=== PATIENT | male | born 1935 | race Caucasian/White ===

== ENCOUNTER 2019-01-21 18:45 | Observation (INO) ==
--- OUTSIDE RECORDS SUMMARY | 2019-01-21 18:48 | External Medical Summary | Continuity of Care Document ---
:1935 Author Name Kalyn Don Address Unavailable Unavailable , Care Team Providers Name Role Phone Jemal Don Unavailable [email or web address] Unavailable Problems Active medical history not documented Allergies and Adverse Reactions Allergy history not documented Medications Medications not documented Procedures Procedures not documented Immunizations Immunizations not documented Plan of Treatment Planned Observations Planned Goals not documented Results No Known Results Results not documented
--- NOTE | 2019-01-21 20:57 | XRay Report ---
XR chest 1V portable CLINICAL HISTORY: 83 years-old Male presenting with Dyspnea. TECHNIQUE: Portable upright AP view of the chest was obtained. COMPARISON: 11/25/2008. FINDINGS: Left subclavian pacer with leads in the right atrium and right ventricular apex. Median sternotomy wi res. Atherosclerosis of the aortic arch. Cardiac silhouette mildly enlarged. Lungs are mildly hyperin flated. Mild pulmonary vascular prominence. Coarsened lung markings. Minimal right basilar opacity.. No large effusion or pneumothorax. Posttraumatic deformity of the right clavicle. IMPRESSION: 1. Mild cardiomegaly with mild volume overload. 2. Additionally, suspected underlying emphysema or other chronic lung disease. 3. Minimal right basilar opacity possibly atelectasis. Electronically signed by: Reid Marie M.D. 01/21/2019 8:56 PM
[2019-01-21 20:59] LABS: Basophils # (auto) 0.01 K/uL (0-0.2); Basophils % (auto) 0.2 %; Eosinophils # (auto) 0.33 K/uL (0-0.5); Eosinophils % (auto) 5.1 %; Hemoglobin 11.3 g/dL (14.0-18.0); Immature Granulocytes # (auto) 0.03 K/uL (0.00-0.02); Immature Granulocytes % (auto) 0.5 %; Lymphocytes # (auto) 1.84 K/uL (1.2-3.4); Lymphocytes % (auto) 28.6 %; Mean Corpuscular Hgb Conc 34.2 g/dL (32-36); Mean Corpuscular Volume 100.3 fL (80-100); Mean Platelet Volume 12.1 fL (7.4-10.4); Monocytes # (auto) 0.71 K/uL (0.11-0.59); Neutrophils # (auto) 3.52 K/uL (1.4-6.5); Neutrophils % (auto) 54.6 %; Platelet Count 273 K/uL (130-400); RDW Coefficient of Variation 18.9 % (11.5-14.5); RDW Standard Deviation 66.7 fL (36.4-46.3); Red Blood Count 3.29 M/uL (4.7-6.1); White Blood Count 6.44 K/uL (4.8-10.8)
[2019-01-21 21:14] LABS: INR 1.1 (0.9-1.1); Partial Thromboplastin Ratio 0.9; Partial Thromboplastin Time 23.6 Seconds (21.0-31.0)
[2019-01-21 21:15] LABS: Alanine Aminotransferase 25 U/L (12-78); Aspartate Aminotransferase 16 U/L (15-37); Blood Urea Nitrogen 25 mg/dl (7-18); Calcium 9.2 mg/dl (8.5-10.1); Carbon Dioxide 25 mmol/L (21-32); Chloride 112 mmol/L (98-107); Creatinine Clr Calc Pharmacy 50.9 ml/min; Est GFR (African American) 63.3; Est GFR (Non-African American) 54.6; Glucose 102 mg/dl (70-99); Magnesium 2.3 mg/dl (1.8-2.4); Sodium 142 mmol/L (136-145)
[2019-01-21 21:19] LABS: Albumin Globulin Ratio 1.2 (0.9-2); Alkaline Phosphatase 102 U/L (45-117); Bilirubin,Total 0.7 mg/dl (0.2-1); Globulin 3.5 gm/dl (2.5-4.0); Total Protein 7.5 gm/dl (6.4-8.2); Troponin I < 0.015 ng/ml (0-0.045)
--- NOTE | 2019-01-21 23:07 | Emergency Department Note ---
Entered by Neema Araujo acting as a scribe for History of Present Illness General Chief complaint: Shortness of Breath/Dyspnea Stated complaint: SOB Time Seen by Provider: 01/21/19 20:26 Source: patient History of Present Illness Onset (ago): year(s) 1 Location: chest Pain Consistency: + other (worsening) Quality: + other (shortness of breath) Exacerbated By: + other (exertion) Associated symptoms: + other (negative abdominal pain; negative leg swelling); no cough, no diaphoresis and no nausea/vomiting The patient is a 83 year old white male w/ PMHx of quadruple bypass, hypertension, and hyperlipidemia who presents to the ED w/ CC of worsening shortness of breath beginning about one year prior to arrival. The patient states that his symptoms are exacerbated with exertion. The patient states that he is only able to walk small distances before he becomes winded. He denies leg swelling, cough, sweating, abdominal pain, nausea, and vomiting. The patient states that he takes a baby aspirin regularly. He denies a history of blood clots. Home Medications Home Medications Medication Instructions Recorded Confirmed Type amlodipine 5 mg PO DAILY 01/21/19 01/21/19 History aspirin [Aspir-Low] 81 mg PO DAILY 01/21/19 01/21/19 History atorvastatin [Lipitor] 20 mg PO Q OTHER DAY 01/21/19 01/21/19 History deferasirox [Jadenu] 1,080 mg PO DAILY 01/21/19 01/21/19 History dorzolamide-timolol 1 drp OPB BID 01/21/19 01/21/19 History glucosamine-chondroitin [Osteo 1 tab PO DAILY 01/21/19 01/21/19 History Bi-Flex] metoprolol tartrate 25 mg PO BID 01/21/19 01/21/19 History Allergies Allergy/AdvReac Type Severity Reaction Status Date / Time lisinopril Allergy Unknown Rxn not Verified 01/21/19 22:52 stated niacin Allergy Unknown Reaction Verified 01/21/19 22:52 not stated Past Med/Surg History Medical History Hyperlipidemia (Chronic) Hypertension (Chronic) Surgical History History of quadruple bypass (Chronic) Social History Feels Safe at Home: Yes Smoking Status: Never smoker Review of Systems See HPI for pertinent positives & negatives. and A total of 10 systems reviewed and were otherwise negative Physical Exam Vital Signs Vital Signs - 24 hr 01/21/19 18:47 01/21/19 20:32 01/21/19 22:10 Temperature 36.5 C Temperature Source Oral Sepsis Recent Fever Within 48 Hours No Sepsis New/Unexplained Change in Mental Status No Sepsis Action Taken by Nursing No Action Required Pulse Rate 66 Pulse Rate [Finger] 67 66 Pulse Rhythm [Finger] Regular Pulse Strength [Finger] Normal Respiratory Rate 20 20 18 Respiratory Effort / Characteristics Non-Labored Respiratory Depth Normal Respiratory Pattern Regular Blood Pressure 149/63 H Blood Pressure [Right Arm] 158/91 H 106/61 Blood Pressure Mean 91 Blood Pressure Mean [Right Arm] 113 76 Blood Pressure Position [Right Arm] Sitting Pulse Oximetry 97 97 98 Oxygen Delivery Method Room Air Room Air Room Air GENERAL: Well appearing, well nourished, NAD, non-toxic. EYE EXAM: Normal conjunctiva. PERRL, no anisocoria and EOM's grossly intact w/o pain. OROPHARYNX: Moist mucus membranes. Grossly normal dentition. NECK: Supple, no nuchal rigidity, no adenopathy, non-tender. no signs of men ingismus. LUNGS: Clear to auscultation. Normal chest wall mechanics. HEART: NSR, no MRG. ABDOMEN: Abdomen soft, non-tender, normo-active bowel sounds, no masses, no rebound or guarding. BACK: No CVA TTP. SKIN: No rashes and no bruising. UPPER EXTREMITIES: Upper extremities are grossly normal. LOWER EXTREMITIES: 1+ lower extremity edema. No calf pain. NEURO EXAM: A&O x3, cranial nerves II-XII grossly intact, normal speech, moves all 4 extremities on command w/o issue. Course 2028: Past medical records reviewed. The patient was evaluated in room B7. A complete history and physical exam was performed. 2241: I discussed the case with Dr. Law[facility] who agrees with the treatment plan. 2257: I checked on the patient and updated him. He states that he would like to be further evaluated in the hospital. [facility]. Medical Decision Making Medical Records Attestation: I reviewed the patient's medical records. Home Medications Current Medication List: was personally reviewed by me Laboratory Data Attestation: I reviewed the patient's lab results. Result diagrams: 01/21/19 20:40 01/21/19 20:40 Lab Results 01/21/19 01/21/19 01/21/19 Range/Units 20:40 20:40 20:40 WBC 6.44 (4.8-10.8) K/uL RBC 3.29 L (4.7-6.1) M/uL Hgb 11.3 L (14.0-18.0) g/dL Hct 33.0 L (42-52) % MCV 100.3 H (80-100) fL MCH 34.3 H (25-34) pg MCHC 34.2 (32-36) g/dL RDW Std Deviation 66.7 H (36.4-46.3) fL RDW Coeff of Ganga 18.9 H (11.5-14.5) % Plt Count 273 (130-400) K/uL MPV 12.1 H (7.4-10.4) fL Immature Gran % (Auto) 0.5 % Neut % (Auto) 54.6 % Lymph % (Auto) 28.6 % [place] % (Auto) 11.0 % Eos % (Auto) 5.1 % Baso % (Auto) 0.2 % Immature Gran # (Auto) 0.03 H (0.00-0.02) K/uL Neut # (Auto) 3.52 (1.4-6.5) K/uL Lymph # (Auto) 1.84 (1.2-3.4) K/uL [place] # (Auto) 0.71 H (0.11-0.59) K/uL Eos # (Auto) 0.33 (0-0.5) K/uL Baso # (Auto) 0.01 (0-0.2) K/uL PT 11.0 (9.0-12.0) Seconds INR 1.1 (0.9-1.1) APTT 23.6 (21.0-31.0) Seconds PTT Ratio 0.9 Sodium 142 (136-145) mmol/L Potassium 4.0 (3.5-5.1) mmol/L Chloride 112 H (98-107) mmol/L Carbon Dioxide 25 (21-32) mmol/L Anion Gap 5.0 (3-11) BUN 25 H (7-18) mg/dl Creatinine 1.21 (0.6-1.4) mg/dl Est Cr Clr Drug Dosing 50.9 ml/min Est GFR ( Amer) 63.3 Est GFR (Non-Af Amer) 54.6 BUN/Creatinine Ratio 21.0 H (10-20) Glucose 102 H (70-99) mg/dl Calcium 9.2 (8.5-10.1) mg/dl Magnesium 2.3 (1.8-2.4) mg/dl Total Bilirubin 0.7 (0.2-1) mg/dl AST 16 (15-37) U/L ALT 25 (12-78) U/L Alkaline Phosphatase 102 (45-117) U/L Troponin I < 0.015 (0-0.045) ng/ml Total Protein 7.5 (6.4-8.2) gm/dl Albumin 4.0 (3.4-5.0) gm/dl Globulin 3.5 (2.5-4.0) gm/dl Albumin/Globulin Ratio 1.2 (0.9-2) Imaging Data Radiologist's Impression: Radiology results as stated below per my review and the radiologist's interpretation: XR chest 1V portable CLINICAL HISTORY: 83 years-old Male presenting with Dyspnea. TECHNIQUE: Portable upright AP view of the chest was obtained. COMPARISON: 11/25/2008. FINDINGS: Left subclavian pacer with leads in the right atrium and right ventricular apex. Median sternotomy wires. Atherosclerosis of the aortic arch. Cardiac silhouette mildly enlarged. Lungs are mildly hyperinflated. Mild pulmonary vascular prominence. Coarsened lung markings. Minimal right basilar opacity.. No large effusion or pneumothorax. Posttraumatic deformity of the right clavicle. IMPRESSION: 1. Mild cardiomegaly with mild volume overload. 2. Additionally, suspected underlying emphysema or other chronic lung disease. 3. Minimal right basilar opacity possibly atelectasis. Electronically signed by: Reid Marie M.D. 01/21/2019 8:56 PM ECG Data Attestation: I personally reviewed and interpreted this ECG as follows: Indication: SOB/dyspnea Rate (beats per minute): 68 Rhythm: other (V paced rhythm) Findings: + other (wide QRS; no sgarbosa criteria present), + LBBB, + Q waves (throughout) and + T-wave inversion (high lateral leads ) Blood Pressure Blood Pressure Findings: Normal blood pressure MDM Narrative The patient is a 83 year old white male w/ PMHx of quadruple bypass, hypertension, and hyperlipidemia who presents to the ED w/ CC of worsening shortness of breath beginning about one year prior to arrival. Differential diagnosis: Etiologies such as infections, reactive airway disease, pneumonia, pneumothorax, COPD, CHF, cardiac ischemia, pulmonary embolism, musculoskeletal, gastrointest inal, as well as others were entertained. Patient was seen and evaluated at the bedside. The patient was complaining of worsening exertional dyspnea. The patient denies any PND or orthopnea. The p atient states that within the last 6 months to year he is to be able to walk 4 miles and now can barely walk 100 feet. Patient does not look volume overloaded. Patient denies any prior history of DVT PE. The patient does take aspirin does follow with [facility] cardiology with Dr. Noonan. The patient had been seen in the outpatient setting on January 10 and did have an outpatient nuclear stress test pending. The patient did have blood work completed along with an EKG and chest x-ray. Patient was attempted to be interrogated. Have a normal white count. Hemoglobin is 11 and from 10 years ago it was approximately 13. Patient does have mildly elevated MCV may benefit from folic acid or B12 te sting. Patient has fairly normal kidney function given the patient's age. Troponin is not detectable. Patient's EKG does show V paced rhythm but no Sgarbossa criteria present. Patient's chest x-ray does show some cardiomegaly and potentially chronic lung disease. Patient clinically does not look volume overloaded. I did discuss to the patient the on-call food trades assistants who recommended inpatient treatment for stress testing as this patient does have prior history of CABG. I did speak with the on-call hospitalist who agreed to further evaluate treat the patient. Patient was admitted to the medicine service. Impression & Plan Dyspnea on exertion Discharge Plan Visit Data Chief Complaint: Shortness of Breath/Dyspnea Stated Complaint: SOB ED Provider: River Campbell Discharge Problem: Dyspnea on exertion Patient Disposition: Being Evaluated by Hospitalist Forms Stand Alone Forms: My [facility] Prescriptions Prescriptions: No Action atorvastatin [Lipitor] 20 mg tablet 20 mg PO Q OTHER DAY RF: 0 amlodipine 5 mg Tablet 5 mg PO DAILY RF: 0 aspirin [Aspir-Low] 81 mg Tablet,Delayed Release (Dr/Ec) 81 mg PO DAILY RF: 0 dorzolamide-timolol 22.3-6.8 mg/mL Drops 1 drp OPB BID RF: 0 glucosamine-chondroitin [Osteo Bi-Flex] 250-200 mg Tablet 1 tab PO DAILY RF: 0 metoprolol tartrate 25 mg Tablet 25 mg PO BID RF: 0 Jadenu 360 mg Tablet 1,080 mg PO DAILY RF: 0 Referrals Referrals: Eren Villagran [Primary Care Provider] - The scribe's documentation has been prepared under my direction and personally reviewed by me in its entirety. I confirm that the note above accurately reflects all work, treatment, procedures, and medical decision making performed by me.
--- NOTE | 2019-01-21 23:32 | History & Physical Report ---
Date of Service January 21, 2019 Assessment & Plan (1) Dyspnea on exertion: Progressive dyspnea on exertion over past 12 months. Symptoms may be related to ischemic heart disease or other etiologies. Check follow-up resting echocardiogram. Check d-dimer to screen for thromboembolic disease. Consult Cardiology. (2) Coronary artery disease: Coronary artery disease, status post CABG. Progressive dyspnea on exertion without chest pain as described above. Continue aspirin, metoprolol, statin. Consult Cardiology. (3) Paroxysmal atrial fibrillation: Currently in paced ventricular rhythm. 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 Status post pacemaker with appropriate sensing and pacing. (5) Myelodysplastic syndrome: CBC stable. (6) Do not resuscitate status: Per advanced directives. (7) DVT prophylaxis: Subcutaneous enoxaparin. Ambulate. (8) Discharge planning issues: Anticipated discharge to home. Primary care follow-up with Dr. Villagran at the [facility]. Cardiology follow-up with Dr. Noonan. History of Present Illness Chief Complaint: dyspnea on exertion Primary Care Provider: Eren Villagran 83-year-old male followed by Dr. Villagran at the [facility] for primary care and by Dr. Noonan for Cardiology. 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 Until about a year ago he was walking about 4 and half miles a day. Over the last 12 months he has noticed progressive dyspnea on exertion. Treadmill stress echo was performed in July, but patient was unable to achie ve an adequate workload. His dyspnea worsened and arrangements were being made for an outpatient pharmacologic nuclear stress study. However, over the last 2 days his dyspnea has worsened to the point where he experiences symptoms after ambulating 20 feet. He is able to walk up a flight of stairs without stopping, albeit with difficulty. No associated chest pain, palpitations, dependent edema. Allergies Allergy/AdvReac Type Severity Reaction Status Date / Time lisinopril Allergy Unknown Rxn not Verified 01/21/19 22:52 stated niacin Allergy Unknown Reaction Verified 01/21/19 22:52 not stated Home Medications Home Medications Medication Instructions Recorded Confirmed Type amlodipine 5 mg PO DAILY 01/21/19 01/21/19 History aspirin [Aspir-Low] 81 mg PO DAILY 01/21/19 01/21/19 History atorvastatin [Lipitor] 20 mg PO Q OTHER DAY 01/21/19 01/21/19 History deferasirox [Jadenu] 1,080 mg PO DAILY 01/21/19 01/21/19 History dorzolamide-timolol 1 drp OPB BID 01/21/19 01/21/19 History glucosamine-chondroitin [Osteo 1 tab PO DAILY 01/21/19 01/21/19 History Bi-Flex] metoprolol tartrate 25 mg PO BID 01/21/19 01/21/19 History Past Med/Surg History Medical History Do not resuscitate status (Chronic) Paroxysmal atrial fibrillation (Chronic) Myelodysplastic syndrome (Chronic) Macular degeneration (Chronic) History of prostate cancer (Chronic) Pacemaker (Chronic) Sinus ruben-tachy syndrome (Chronic) Coronary artery disease (Chronic) History of nephrolithiasis (Chronic) Hyperlipidemia (Chronic) Hypertension (Chronic) Surgical History Status cardiac pacemaker (Chronic) Status post coronary artery bypass graft (Chronic) Family History Mother Coronary heart disease Social History Preferred Language: Honduran Communication Ability: Effective Steam Drier Operator Required: No Beliefs That Will Affect Care: None Current Living Situation: Spouse Other Information That Helps Us Care for You: No Feels Safe at Home: Yes Safety Concerns: Feels Safe At This Time Smoking Status: Never smoker Do You Dip or Chew Tobacco: No Second Hand Exposure: No Tobacco Cessation Education Requested by Patient: No Hx Alcohol Use: No Hx Substance Use: No Review of Systems Constitutional: no fever and no weight loss Eyes: + worsening vision; no diplopia Ear, Nose, Mouth, Throat: + hearing loss; no nasal congestion, no sinus pain/pressure and no sore throat Respiratory: as per Subjective / HPI Cardiovascular: as per Subjective / HPI Gastrointestinal: no nausea, no vomiting, no constipation, no diarrhea/loose stools, no blood in stools and no melena Genitourinary: no dysuria and no hematuria Musculoskeletal: + joint pain Integumentary: no rash and no new lesions Neurologic: no headache(s) Endocrine: no polydipsia and no polyuria Hematologic / Lymphatic: + easy bruising; no easy bleeding and no lymphadenopathy Physical Exam Constitutional: WD/WN, vitals as above no acute distress Eyes: PERRL, conjunctivae normal, anicteric sclerae ENMT: external ear and nose normal, oropharynx normal Ears: + hearing impairment Neck: trachea midline, no thyromegaly Respiratory: normal respiratory effort, lungs clear to auscultation Cardiovascular: Rate/Rhythm: regular rate Heart Sounds: no gallop, no murmur and no cardiac rub Vessels: posterior tibial pulses present (1/2 bilat) and dorsalis pedis pulses present (1/2 bilat); no JVD Extremities: normal capillary refill; no calf tenderness and no edema Gastrointestinal (Abdomen): normal bowel sounds, soft, nontender, no hepatosplenomegaly Musculoskeletal: Head/Neck/Chest: neck supple Extremities: strength 5/5 throughout; no cyanosis and no clubbing Skin: no rashes, warm and dry Neurologic: PERRL, EOMI no facial palsy no dysarthria or aphasia patellar DTR's 1/2 bilat Psychiatric: Orientation: alert and oriented x 3 Affect: euthymic affect Lymphatic: no cervical lymphadenopathy Results & Data Vital Signs (Past 12 Hours) Vital Signs Temp Pulse Pulse Resp BP BP Pulse Ox 01/21/19 22:10 66 18 106/61 98 01/21/19 20:32 67 20 158/91 H 97 01/21/19 18:47 36.5 C 66 20 149/63 H 97 Laboratory Results Laboratory Results - last 24 hr 01/21/19 01/21/19 01/21/19 20:40 20:40 20:40 WBC 6.44 RBC 3.29 L Hgb 11.3 L Hct 33.0 L MCV 100.3 H MCH 34.3 H MCHC 34.2 RDW Std Deviation 66.7 H RDW Coeff of [place] 18.9 H Plt Count 273 MPV 12.1 H Immature Gran % (Auto) 0.5 Neut % (Auto) 54.6 Lymph % (Auto) 28.6 [place] % (Auto) 11.0 Eos % (Auto) 5.1 Baso % (Auto) 0.2 Immature Gran # (Auto) 0.03 H Neut # (Auto) 3.52 Lymph # (Auto) 1.84 [place] # (Auto) 0.71 H Eos # (Auto) 0.33 Baso # (Auto) 0.01 PT 11.0 INR 1.1 APTT 23.6 PTT Ratio 0.9 Sodium 142 Potassium 4.0 Chloride 112 H Carbon Dioxide 25 Anion Gap 5.0 BUN 25 H Creatinine 1.21 Est Cr Clr Drug Dosing 50.9 Est GFR ( Amer) 63.3 Est GFR (Non-Af Amer) 54.6 BUN/Creatinine Ratio 21.0 H Glucose 102 H Calcium 9.2 Magnesium 2.3 Total Bilirubin 0.7 AST 16 ALT 25 Alkaline Phosphatase 102 Troponin I < 0.015 Total Protein 7.5 Albumin 4.0 Globulin 3.5 Albumin/Globulin Ratio 1.2 Diagnostic Findings Chest x-ray per Radiology: IMPRESSION: 1. Mild cardiomegaly with mild volume overload. [no CHF appreciated by undersigned] 2. Additionally, suspected underlying emphysema or other chronic lung disease. 3. Minimal right basilar opacity possibly atelectasis. Electronically signed by: Reid Marie M.D. 01/21/2019 8:56 PM ECG Additional Comments: EKG performed at 2031 reviewed and demonstrated ventricular paced rhythm at 70 / min, occasional PVC's. Code Status & VTE Plan Code Status Patient indicates that he has a living will and that his code status is DNR. He prefers a natural passing and does not wish to have resuscitation attempted under any circumstances.
[2019-01-22] MEDS ORDERED: METOPROLOL TARTRATE 25 MG TAB PO ONE (01:06)
[2019-01-22] MEDS ORDERED: ACETAMINOPHEN 325 MG TAB PO PRN (02:15)
[2019-01-22] MEDS ORDERED: NITROGLYCERIN SL 0.4 MG/TAB TAB SL PRN (02:15)
[2019-01-22 07:36] LABS: D Dimer 290 ug/L FEU (0-500)
[2019-01-22] MEDS: AMLODIPINE BESYLATE 5 MG TAB PO SCH (08:16)
[2019-01-22] MEDS: ASPIRIN 81 MG ECTAB PO SCH (08:16)
[2019-01-22] MEDS: METOPROLOL TARTRATE 25 MG TAB PO SCH ×2 (08:16→20:15)
[2019-01-22] MEDS: DORZOLAMIDE/TIMOLOL 22.3/6.8MG/ML 10 ML BTL OPB SCH ×2 (08:17→20:15)
[2019-01-22] MEDS: ENOXAPARIN INJ 40 MG/0.4 ML SYR SQ SCH (08:17)
[2019-01-22] MEDS ORDERED: ATORVASTATIN 20 MG TAB PO SCH (09:00)
--- NOTE | 2019-01-22 11:37 | Hospitalist Progress Note ---
Date of Service January 22, 2019 Assessment & Plan (1) Dyspnea on exertion: 83-year-old male with history of coronary disease, tachybradycardia syndrome, post pacemaker placement, paroxysmal A. fib, hypertension, presented with progressive dyspnea on exertion Troponins negative EKG no signs of acute ischemia D-dimer normal Radiologist Dr. Samuel consulted Patient's pacemaker is due for generator change Plan for placement tomorrow Also planning for stress test (2) Coronary artery disease: Coronary artery disease, status post CABG. Plan for stress test per cardiology service Continue aspirin, metoprolol, statin. (3) Paroxysmal atrial fibrillation: Currently in paced ventricular rhythm. 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 Status post pacemaker with appropriate sensing and pacing. (5) Myelodysplastic syndrome: CBC stable. (6) Do not resuscitate status: Per advanced directives. (7) DVT prophylaxis: Subcutaneous enoxaparin. Ambulate. (8) Discharge planning issues: Anticipated discharge to home. Primary care follow-up with Dr. Villagran at the [facility]. Cardiology follow-up with Dr. Noonan. Discussed with patient and his at the bedside, they are understanding and comfortable with the plan of care Subjective Follow-up for dyspnea on exertion Seen resting in bed, comfortable, not in distress Reports dyspnea on exertion, but feels fine when at rest No active chest pain, dizziness, palpitations, nausea or vomiting No other symptoms Review of Systems Review of Systems: All systems reviewed & are unremarkable except as noted in HPI & below Physical Exam Physical Exam: General- oriented x 3, not in distress, speaks in sentences with no effort or accessory muscle use Eyes- anicteric Neck- no JVD Lungs- clear breath sounds bilaterally, no rales/wheezes Heart- normal rate, regular rhythm; no murmurs Abdomen- normal bowel sounds, nondistended, soft, nontender Extremities- no pretibial edema, no calf tenderness Neuro- alert, oriented x 3; no gross focal neurologic deficits Skin- warm & dry Results & Data Vital Signs (Past 12 Hours) Vital Signs Temp Pulse Pulse Resp BP BP BP 01/22/19 11:02 36.5 C 65 19 99/63 L 01/22/19 07:20 36.5 C 67 18 99/60 L 01/22/19 03:40 36.5 C 65 16 92/56 L 01/22/19 02:10 65 01/22/19 01:40 36.4 C L 66 20 133/77 01/22/19 01:20 67 19 100/65 01/22/19 00:01 65 18 01/22/19 00:00 70 23 110/72 01/21/19 23:45 65 16 Pulse Ox 01/22/19 11:02 95 01/22/19 07:20 96 01/22/19 03:40 97 01/22/19 02:10 01/22/19 01:40 98 01/22/19 01:20 95 01/22/19 00:01 96 01/22/19 00:00 92 01/21/19 23:45 95 Laboratory Results Laboratory Results - last 24 hr 01/21/19 01/21/19 01/21/19 20:40 20:40 20:40 WBC 6.44 RBC 3.29 L Hgb 11.3 L Hct 33.0 L MCV 100.3 H MCH 34.3 H MCHC 34.2 RDW Std Deviation 66.7 H RDW Coeff of [place] 18.9 H Plt Count 273 MPV 12.1 H Immature Gran % (Auto) 0.5 Neut % (Auto) 54.6 Lymph % (Auto) 28.6 [place] % (Auto) 11.0 Eos % (Auto) 5.1 Baso % (Auto) 0.2 Immature Gran # (Auto) 0.03 H Neut # (Auto) 3.52 Lymph # (Auto) 1.84 [place] # (Auto) 0.71 H Eos # (Auto) 0.33 Baso # (Auto) 0.01 PT 11.0 INR 1.1 APTT 23.6 PTT Ratio 0.9 D-Dimer Sodium 142 Potassium 4.0 Chloride 112 H Carbon Dioxide 25 Anion Gap 5.0 BUN 25 H Creatinine 1.21 Est Cr Clr Drug Dosing 50.9 Est GFR ( Amer) 63.3 Est GFR (Non-Af Amer) 54.6 BUN/Creatinine Ratio 21.0 H Glucose 102 H Calcium 9.2 Magnesium 2.3 Total Bilirubin 0.7 AST 16 ALT 25 Alkaline Phosphatase 102 Troponin I < 0.015 Total Protein 7.5 Albumin 4.0 Globulin 3.5 Albumin/Globulin Ratio 1.2 01/22/19 01/22/19 07:11 07:11 WBC RBC Hgb Hct MCV MCH MCHC RDW Std Deviation RDW Coeff of [place] Plt Count MPV Immature Gran % (Auto) Neut % (Auto) Lymph % (Auto) [place] % (Auto) Eos % (Auto) Baso % (Auto) Immature Gran # (Auto) Neut # (Auto) Lymph # (Auto) [place] # (Auto) Eos # (Auto) Baso # (Auto) PT INR APTT PTT Ratio D-Dimer 290 Sodium Potassium Chloride Carbon Dioxide Anion Gap BUN Creatinine Est Cr Clr Drug Dosing Est GFR ( Amer) Est GFR (Non-Af Amer) BUN/Creatinine Ratio Glucose Calcium Magnesium Total Bilirubin AST ALT Alkaline Phosphatase Troponin I < 0.015 Total Protein Albumin Globulin Albumin/Globulin Ratio
--- NOTE | 2019-01-22 14:03 | Cardiology Consultation ---
Date of Consultation January 22, 2019 Assessment & Plan (1) Pacemaker generator end of life: (2) Dyspnea on exertion: The patient describes over a year of progressive exertional shortness of breath this became acutely worse over the last few days. His acute worsening symptoms seem to correlate with pacemaker interrogation findings of him having reached the elective replacement interval, and he is no longer atrial paced, but is ventricular paced in the mid 60 bpm range. I believe his acute symptoms can be corrected with generator change should be performed this hospital stay. We will make the patient n.p.o. for tomorrow and ask EP for assistance with this procedure. Looking ahead, his echocardiogram reveals relatively stable findings. I recommend proceeding with the nuclear stress test as planned. The patient is certainly at high risk for having progression of his coronary heart disease having had coronary artery bypass grafting well over 25 years ago for severe lower brule vessel disease. Rather than proceeding with cardiac catheterization, I think the stress test would be helpful in terms of providing potential ischemia targets. History of Present Illness Attending Physician: Espinoza Zhao MD History of Present Illness Nima Baptiste is an 83 year old male seen in cardiology consultation per the request of Dr Zendejas for the evaluation of exertional shortness of breath and decreased exercise tolerance with a history of chronic coronary heart disease. The patient's primary structural layout worker is Dr. Branden Noonan of our practice. The patient has recently however been seen by Cheryl De La Rosa PA-C of our practice. He describes progressive decline in exercise tolerance over the last year. A year ago he states he was able to walk 4 miles without stopping. Now he states walking short distances such as from the waiting room to the exam room in our office is not possible without significant shortness of breath and taking a break. This had initially been assessed with an exercise stress echocardiogram performed in July 2018 at [facility] at which time he exercised for 3 minutes and 24 seconds. The heart rate response was suboptimal achieving a peak heart rate equivalent 81% of age-predicted maximum. The exercise capacity was less than the prior stress echocardiogram performed in 2012 at which time he was able to complete 6 minutes and 30 seconds. Ongoing conservative therapy was recommended at that time. More recently he had been seen in follow-up complaint of ongoing perceived shortness of breath with exertion and a pharmacologic nuclear stress test had been tentatively scheduled. At the time of his follow-up visit on 01/10/2019 he was noted that his dual- chamber pacemaker was approaching the elective replacement interval with an estimated 1 month of generator longevity present. At that time he was in sinus rhythm and was atrial paced greater than 90% the time and very rarely ventricular paced. The patient presented overnight last night with noted findings of ventricular pacing at 65 bpm on telemetry and EKG. His device was interrogated with the help of the [employer] fundraising sale representative earlier today and he has been found to have reached the elective replacement interval and therefore asynchronous ventricular pacing is present. Past Medical History: History of chronic coronary heart disease, he was diagnosed with multivessel CAD in 1992 underwent CABG x4 at [facility] at that time. He has not had any recurrent cardiac catheterizations in the interim. Nonischemic stress echocardiogram was noted in 2012, and had a recent stress echocardiogram performed in July 2018 with suboptimal heart rate response and demonstrated decline in objective exercise tolerance. Patient has history of sick sinus syndrome and underwent dual-chamber permanent pacemaker placed by Dr. Leblanc daily in 2008 Allergies Allergy/AdvReac Type Severity Reaction Status Date / Time lisinopril Allergy Unknown Rxn not Verified 01/21/19 22:52 stated niacin Allergy Unknown Reaction Verified 01/21/19 22:52 not stated Home Medications Home Medications Medication Instructions Recorded Confirmed Type amlodipine 5 mg PO DAILY 01/21/19 01/21/19 History aspirin [Aspir-Low] 81 mg PO DAILY 01/21/19 01/21/19 History atorvastatin [Lipitor] 20 mg PO Q OTHER DAY 01/21/19 01/21/19 History deferasirox [Jadenu] 1,080 mg PO DAILY 01/21/19 01/21/19 History dorzolamide-timolol 1 drp OPB BID 01/21/19 01/21/19 History glucosamine-chondroitin [Osteo 1 tab PO DAILY 01/21/19 01/21/19 History Bi-Flex] metoprolol tartrate 25 mg PO BID 01/21/19 01/21/19 History Patient History Medical History Do not resuscitate status (Chronic) Paroxysmal atrial fibrillation (Chronic) Myelodysplastic syndrome (Chronic) Macular degeneration (Chronic) History of prostate cancer (Chronic) Pacemaker (Chronic) Sinus ruben-tachy syndrome (Chronic) Coronary artery disease (Chronic) History of nephrolithiasis (Chronic) Hyperlipidemia (Chronic) Hypertension (Chronic) Surgical History Status cardiac pacemaker (Chronic) Status post coronary artery bypass graft (Chronic) Family History Mother Coronary heart disease Social History Preferred Language: Malagasy Communication Ability: Effective Switch Repairer Required: No Beliefs That Will Affect Care: None Current Living Situation: Spouse Other Information That Helps Us Care for You: No Feels Safe at Home: Yes Safety Concerns: Feels Safe At This Time Smoking Status: Never smoker Do You Dip or Chew Tobacco: No Second Hand Exposure: No Tobacco Cessation Education Requested by Patient: No Hx Alcohol Use: No Hx Substance Use: No Review of Systems Review of Systems: All systems reviewed & are unremarkable except as noted in HPI & below Physical Exam Physical Exam: Temp Pulse Resp BP Pulse Ox 36.5 C 65 19 99/63 L 95 01/22/19 11:02 01/22/19 11:02 01/22/19 11:02 01/22/19 11:02 01/22/19 11:02 Constitutional: WD/WN, vitals as above Respiratory: normal respiratory effort, lungs clear to auscultation Cardiovascular: Rate/Rhythm: regular rate Heart Sounds: + murmur (1/6 SM) Vessels: no JVD Extremities: no edema Musculoskeletal: no cyanosis or clubbing, extremities motor strength 5/5 Neurologic: patellar DTR's 2+ bilat, sensation intact Results & Data Vital Signs (Past 12 Hours) Vital Signs Temp Pulse Pulse Resp BP BP Pulse Ox 01/22/19 11:02 36.5 C 65 19 99/63 L 95 01/22/19 07:20 36.5 C 67 18 99/60 L 96 01/22/19 03:40 36.5 C 65 16 92/56 L 97 01/22/19 02:10 65 Laboratory Results Cardiac Enzymes 01/21/19 01/22/19 Range/Units 20:40 07:11 AST 16 (15-37) U/L Troponin I < 0.015 < 0.015 (0-0.045) ng/ml Coagulation 01/21/19 Range/Units 20:40 PT 11.0 (9.0-12.0) Seconds APTT 23.6 (21.0-31.0) Seconds CBC 01/21/19 Range/Units 20:40 WBC 6.44 (4.8-10.8) K/uL RBC 3.29 L (4.7-6.1) M/uL Hgb 11.3 L (14.0-18.0) g/dL Hct 33.0 L (42-52) % Plt Count 273 (130-400) K/uL Neut # (Auto) 3.52 (1.4-6.5) K/uL Lymph # (Auto) 1.84 (1.2-3.4) K/uL [place] # (Auto) 0.71 H (0.11-0.59) K/uL Eos # (Auto) 0.33 (0-0.5) K/uL Baso # (Auto) 0.01 (0-0.2) K/uL Comprehensive Metabolic Panel 01/21/19 Range/Units 20:40 Sodium 142 (136-145) mmol/L Potassium 4.0 (3.5-5.1) mmol/L Chloride 112 H (98-107) mmol/L Carbon Dioxide 25 (21-32) mmol/L BUN 25 H (7-18) mg/dl Creatinine 1.21 (0.6-1.4) mg/dl Glucose 102 H (70-99) mg/dl Calcium 9.2 (8.5-10.1) mg/dl AST 16 (15-37) U/L ALT 25 (12-78) U/L Alkaline Phosphatase 102 (45-117) U/L Total Protein 7.5 (6.4-8.2) gm/dl Albumin 4.0 (3.4-5.0) gm/dl Intake and Output 01/21/19 01/22/19 01/22/19 22:59 06:59 14:59 Other: Weight 91.8 kg 90.8 kg Diagnostic Findings EKG performed 01/21/2019 reveals ventricular pacing at 60 bpm Echocardiogram performed earlier today reveals mild concentric left ventricular hypertrophy. There is a small sized inferior wall motion abnormality encompassing the basal and mid levels of the inferior wall with low normal LVEF in the range of 50 to 55%. Borderline to mild aortic valve stenosis is present. Mild mitral regurgitation, mild aortic valve regurgitation, and mild tricuspid valve regurgitation were present. Medications Administered Current Inpatient Medications Acetaminophen (Tylenol) 650 mg PO Q4H PRN PRN Reason: Pain or Fever Stop: 02/21/19 02:14 Amlodipine Besylate (Norvasc) 5 mg PO DAILY [facility] Stop: 02/21/19 08:59 Last Admin: 01/22/19 08:16 Dose: 5 mg Documented by: Aspirin (Ecotrin Ectab) 81 mg PO DAILY DUC Stop: 02/21/19 08:59 Last Admin: 01/22/19 08:16 Dose: 81 mg Documented by: Atorvastatin Calcium (Lipitor) 20 mg PO Q48H DUC Stop: 02/21/19 08:59 Last Admin: 01/22/19 08:16 Dose: 20 mg Documented by: Dorzolamide/Timolol (Cosopt) 1 drops OPB BID [facility] Stop: 02/21/19 08:59 Last Admin: 01/22/19 08:17 Dose: 1 drops Documented by: Enoxaparin Sodium (Lovenox) 40 mg SQ QAM [facility] Stop: 02/21/19 08:59 Last Admin: 01/22/19 08:17 Dose: 40 mg Documented by: Metoprolol Tartrate (Lopressor) 25 mg PO BID [facility] Stop: 02/21/19 08:59 Last Admin: 01/22/19 08:16 Dose: 25 mg Documented by: Nitroglycerin (Nitrostat) 0.4 mg SL UD PRN PRN Reason: Chest Pain Stop: 02/21/19 02:14
[2019-01-23] MEDS ORDERED: BUPIVACAINE 0.25% 30 ML VIAL ONE (06:51)
[2019-01-23] MEDS ORDERED: LIDOCAINE HCL 1% 20 ML VIAL ONE (06:51)
[2019-01-23] MEDS ORDERED: BACITRACIN INJ 50,000 UNIT VIAL ONE (06:51)
[2019-01-23] MEDS ORDERED: fentaNYL citrate 100 MCG/2 ML VIAL ONE (07:27)
[2019-01-23] MEDS ORDERED: CEFAZOLIN 250 MG/ML 1 GM VIAL ONE (07:27)
[2019-01-23] MEDS ORDERED: MIDAZOLAM HCL 5 MG/ML 1 ML VIAL ONE (07:27)
--- NOTE | 2019-01-23 07:30 | Pre Anesthesia Assessment ---
Date of Service January 23, 2019 Pre Sedation Assessment Vital Signs Temp Pulse Pulse Resp BP BP Pulse Ox 01/23/19 04:13 36.4 C L 65 19 94/59 L 97 01/23/19 00:54 65 01/23/19 00:00 36.5 C 63 18 93/56 L 94 01/22/19 20:16 36.6 C 70 20 112/65 97 01/22/19 16:00 36.6 C 62 18 102/64 99 01/22/19 15:17 65 01/22/19 11:02 36.5 C 65 19 99/63 L 95 Cardiovascular + regular rate Respiratory + respiratory effort normal Pre-Sedation Airway Assessment Smoking Status: Never smoker Hx Sleep Apnea: No Hx Difficult Intubation: No Short, Thick Neck: No Thyromental Distance: > or= 3.5 Finger Breadths Oral Cavity: + WNL Mallampati Class: III ASA: ASA3 Procedure Planning Contraindications for Sedation: none Current Medications Reviewed: Yes Notes The planned sedation has been discussed with the patient. Informed Consent was obtained. I have identified the patient, determined the appropriateness of sedation and have assessed the patient immediately prior to the procedure. All medicine(s) and interventions are by my order.
[2019-01-23] MEDS ORDERED: OXYCODONE HCL IR 5 MG TAB (IMMEDIATE RELEASE) PO PRN (08:02)
[2019-01-23] MEDS ORDERED: ACETAMINOPHEN 325 MG TAB PO PRN (08:02)
--- NOTE | 2019-01-23 08:02 | Procedure Note ---
Procedure Note Date of Service January 23, 2019 Note Procedure performed: Pulse generator change for dual-chamber permanent pacemaker Staff commercial baking teacher: Abdulaziz Vital MD Indication: Patient is a [age]-year-old gentleman with a history of sick sinus syndrome and prior implantation of dual-chamber permanent pacemaker. The patient was noted to have reached elective replacement interval and was scheduled for pulse generator change today. Procedure in detail: The patient was informed of the risks benefits and alternatives to the intended procedure and she wished to proceed. He was taken to the electrophysiology suite in a fasting state. A preoperative antibiotic had been administered. The patient was monitored electrocardiographically throughout today's procedure and conscious sedation was administered per protocol. The left upper pectoral area is prepped and draped in usual sterile fashion. This area was anesthetized using subcutaneous administration of a xylocaine solution. Incision was then carried on the previous placed pulse generator using sharp dissection. Letter cautery was used for dissection as well as for hemostasis. The previous implanted pulse generator leads were then freed from the surrounding scar tissue. A partial capsulotomy was performed. The leads were detached from the old device and attached to a new device. The pocket was irrigated with an antibiotic solution prior to replacement of leads and device in the pocket. The pocket was closed in 3 layers of absorbable suture. Steri-Strips and sterile dressing were applied. The device was tested noninvasively prior to conclusion the procedure. The patient tolerated procedure well there no immediate complications. Equipment used: New pulse generator: Kiln Remover [employer]. Model number: [id number] serial number [id number] Retained Right atrial lead: Kiln Remover [employer]. Model number: 4592 serial number [id number] Retained Right ventricular lead: Kiln Remover [employer]. Model number: 4092 serial number [id number] Explanted pulse generator: Kiln Remover [employer]. Model number [id number] serial number [id number] Measured data: Right atrial lead: P waves measured 2.3 mV pacing threshold 0.75 V 0.4 ms with a pacing impedance of 380 ohms Right ventricular lead: R waves measured 13.4 mV. Pacing threshold 1.5 V 0.4 ms with a pacing impedance of 399 ohms Impression: Successful pulse generator change for dual-chamber permanent pacemaker Coding
--- NOTE | 2019-01-23 08:47 | Cardiology Progress Note ---
Date of Service January 23, 2019 Assessment & Plan (1) Pacemaker generator end of life: Patient underwent successful implantation of a dual-chamber permanent pacemaker generator. He should keep the wound dry in the Steri-Strip intact until follow-up in the outpatient setting within 1 week. The outer dressing may be removed in the morning. The patient should be discharged on a regimen of Keflex. 500 mg 3 times daily for 5 days. There are no arm restrictions. Subjective Patient with a history of sick sinus syndrome and pacemaker at [facility]. He is been experiencing symptoms of dyspnea recently. Worse over the past week. Physical Exam Physical Exam: Alert. Answers all questions appropriately Normal story effort Heart rhythm regular Results & Data Vital Signs (Past 12 Hours) Vital Signs Temp Pulse Pulse Resp BP BP Pulse Ox 01/23/19 08:17 36.6 C 61 16 94/57 L 97 01/23/19 07:42 36.5 C 66 18 102/62 96 01/23/19 04:13 36.4 C L 65 19 94/59 L 97 01/23/19 00:54 65 01/23/19 00:00 36.5 C 63 18 93/56 L 94
[2019-01-23] MEDS: AMLODIPINE BESYLATE 5 MG TAB PO SCH (09:57)
[2019-01-23] MEDS: METOPROLOL TARTRATE 25 MG TAB PO SCH (09:57)
[2019-01-23] MEDS: ASPIRIN 81 MG ECTAB PO SCH (09:57)
[2019-01-23] MEDS: ENOXAPARIN INJ 40 MG/0.4 ML SYR SQ SCH (09:57)
[2019-01-23] MEDS: DORZOLAMIDE/TIMOLOL 22.3/6.8MG/ML 10 ML BTL OPB SCH (09:57)
--- NOTE | 2019-01-23 11:06 | Cardiology Progress Note ---
Date of Service January 23, 2019 Assessment & Plan (1) Pacemaker generator end of life: Patient is status post post generator change. Pt is to ambulate with assistance in the unit. If feeling well, OK to discharge to home today on his prior to arrival medication regimen plus the course of Kef damián recommended by Dr Vital. Patient to return to [facility] device clinic on 01/31/2019, patient arrival 11:45 AM, appointment 12 PM for wound check, and device interr ogation. EP input noted and appreciated. He should keep the wound dry in the Steri-Strip intact until follow-up in the outpatient setting within 1 week. The outer dressing may be removed in the morning. The patient should be discharged on a regimen of Keflex. 500 mg 3 times daily for 5 days. Please include the following additional instructions on discharge: ACTIVITY RECOMMENDATIONS: * Resume activity as tolerated. No restrictions with raising arm. SPECIAL CARE INSTRUCTIONS: Keep the wound dry in the Steri-Strip intact until follow-up in the outpatient setting within 1 week. The outer dressing may be removed in the morning. Complete course of the antibiotic Keflex 500 mg 3 times daily for 5 days. * If bleeding occurs, apply direct pressure to area for 5 minutes. * Call your doctor if you have severe pain, fever, drainage or bleeding at site. * Keep dressing on and dry for 48 hours then remove. * Keep any scheduled doctor's appointment. * Implant Card - hand held device with website information given. SKIN IRRITATION: * You may experience some redness and/or swelling in the area where radiation was administered. If any skin irritation occurs, please contact your family physician. FOLLOW UP VISIT: Keep any scheduled doctor appointments. (2) Dyspnea on exertion: The patient had preceding symptoms of dyspnea on exertion which have been present for well over 6 months. He had an acute worsening in symptoms that correlated with when his device reached the elective replacement interval and started asynchronously ventricular pacing at 65 bpm causing "pacemaker syndrome "since he does have underlying sinus rhythm and he is typically atrial paced. The patient's device went SHERRIE on 01/13/2019, and this correlates with his acute worsening symptoms. But the symptoms that he has been complaining of 4 months have been ongoing previously and that is why he was seen on 01/10/2019. We will plan on having the patient keep his appointment for his nuclear stress test as tentatively scheduled at our office on 02/03/2019. He was counseled that should he not feel up to doing a stress test shortly after the generator change that he can notify her nurses when he is therefore the wound check appointment on 01/31/2019, and we can reschedule the stress test out a few more days. I have already contacted our office regarding requesting a follow-up visit to go over his progress with the generator change, and to review the stress test results after the completion of the test. The scheduling department is working on this and should be available by the end of the day. Subjective Chief complaint: Follow-up easy fatigability, exertional shortness of breath Subjective: Patient feeling well. He underwent pulse generator exchange this morning and tolerated the procedure well. He notes that he has not been out of bed yet. Telemetry reveals sinus rhythm at 63 bpm and he is no longer asynchronously paced. Review of Systems Review of Systems: All systems reviewed & are unremarkable except as noted in HPI & below Physical Exam Physical Exam: Temp Pulse Resp BP Pulse Ox 36.6 C 60 18 101/59 L 97 01/23/19 08:17 01/23/19 09:47 01/23/19 09:47 01/23/19 09:47 01/23/19 09:47 Constitutional: WD/WN, vitals as above Respiratory: normal respiratory effort, lungs clear to auscultation Cardiovascular: RRR, no murmur, no edema Chest (Breasts): Chest: + pacemaker (Left infraclavicular pacemaker pocket incision is clean dry and intact, dressed) Gastrointestinal (Abdomen): normal bowel sounds, soft, nontender, no hepatosplenomegaly Neurologic: PERRL, EOMI, accommodation nl, no face palsy, no dysarthria moves all extremities; no focal motor deficits Results & Data Vital Signs (Past 12 Hours) Vital Signs Temp Pulse Pulse Resp BP BP Pulse Ox 01/23/19 09:47 60 18 101/59 L 97 01/23/19 09:17 60 16 99/62 L 99 01/23/19 08:47 60 16 101/59 L 97 01/23/19 08:32 60 16 101/64 96 01/23/19 08:17 36.6 C 61 16 94/57 L 97 01/23/19 07:42 36.5 C 66 18 102/62 96 01/23/19 04:13 36.4 C L 65 19 94/59 L 97 01/23/19 00:54 65 01/23/19 00:00 36.5 C 63 18 93/56 L 94 Laboratory Results Intake and Output 01/22/19 01/23/19 01/23/19 22:59 06:59 14:59 Intake Total 440 / 840 200 / 840 Balance 440 / 640 200 / 640 Intake: Oral 440 / 840 200 / 840 Other: # Unmeasured Voids 1 Weight 90.8 kg Diagnostic Findings Transthoracic echocardiogram performed 01/22/2019 reviewed personally: Mild concentric left ventricular hypertrophy is present. There is a small sized inferior wall motion abnormality with hypokinesis of the basal and mid segments in the inferior wall. The left ventricular ejection fraction is at the lower limit of normal at 50-55%. Mild mitral regurgitation is present. Mild aortic valve regurgitation is present. Mild tricuspid valve regurgitation is present. 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 Medications Administered Current Inpatient Medications Acetaminophen (Tylenol) 650 mg PO Q4H PRN PRN Reason: Pain or Fever Stop: 02/21/19 02:14 Amlodipine Besylate (Norvasc) 5 mg PO DAILY DUC Stop: 02/21/19 08:59 Last Admin: 01/23/19 09:57 Dose: 5 mg Documented by: Aspirin (Ecotrin Ectab) 81 mg PO DAILY DUC Stop: 02/21/19 08:59 Last Admin: 01/23/19 09:57 Dose: 81 mg Documented by: Atorvastatin Calcium (Lipitor) 20 mg PO Q48H DUC Stop: 02/21/19 08:59 Last Admin: 01/22/19 08:16 Dose: 20 mg Documented by: Dorzolamide/Timolol (Cosopt) 1 drops OPB BID DUC Stop: 02/21/19 08:59 Last Admin: 01/23/19 09:57 Dose: 1 drops Documented by: Enoxaparin Sodium (Lovenox) 40 mg SQ QAM DUC Stop: 02/21/19 08:59 Last Admin: 01/23/19 09:57 Dose: 40 mg Documented by: Metoprolol Tartrate (Lopressor) 25 mg PO BID DUC Stop: 02/21/19 08:59 Last Admin: 01/23/19 09:57 Dose: 25 mg Documented by: Nitroglycerin (Nitrostat) 0.4 mg SL UD PRN PRN Reason: Chest Pain Stop: 02/21/19 02:14 Oxycodone HCl (Roxicodone Immediate Rel) 5 mg PO Q6 PRN PRN Reason: Pain Stop: 02/06/19 08:01
--- NOTE | 2019-01-23 18:58 | Hospitalist Progress Note ---
Date of Service January 23, 2019 Assessment & Plan (1) Dyspnea on exertion: Secondary to pacemaker generator reaching end of its life [employer] Operator Dr. Law consulted Status post replacement of pacemaker generator January 23, 2019 Tolerated procedure well Recommend 5-day course of cephalexin postprocedure Follow-up with cardiology clinic next week for evaluation Resume usual cardiac medications Instructions given to patient and his (2) Coronary artery disease: Coronary artery disease, status post CABG. Continue aspirin, metoprolol, statin. (3) Paroxysmal atrial fibrillation: Currently in paced ventricular rhythm. 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 Status post pacemaker with appropriate sensing and pacing. (5) Myelodysplastic syndrome: CBC stable. (6) Do not resuscitate status: Per advanced directives. (7) DVT prophylaxis: Subcutaneous enoxaparin. Ambulate. (8) Discharge planning issues: Discharge to home Up with cardiology clinic next week as outlined in the discharge instruction sheet Primary care follow-up with Dr. Villagran at the [facility]. C Subjective Follow-up for dyspnea on exertion, pacemaker generator reaching end of life Status post replacement of pacemaker generator today Patient tolerated procedure well Denies chest pain, shortness of breath, palpitations, dizziness Walked in the hallways with no problems Denies other symptoms Review of Systems Review of Systems: All systems reviewed & are unremarkable except as noted in HPI & below Physical Exam Physical Exam: General- oriented x 3, not in distress, speaks in sentences with no effort or accessory muscle use Eyes- anicteric Neck- no JVD Lungs- clear breath sounds bilaterally Heart- normal rate, regular rhythm; no murmurs Pacemaker site-with dressing in place, no bleeding or discharge No surrounding edema or erythema Abdomen- normal bowel sounds, nondistended, soft, nontender Extremities- no pretibial edema, no calf tenderness Neuro- alert, oriented x 3; no gross focal neurologic deficits Skin- warm & dry Results & Data Vital Signs (Past 12 Hours) Vital Signs Temp Pulse Resp BP BP Pulse Ox 01/23/19 13:49 36.8 C 86 20 103/59 L 96 01/23/19 11:40 36.8 C 86 20 103/59 L 96 01/23/19 10:45 59 L 18 115/57 L 98 01/23/19 10:15 60 16 105/65 96 01/23/19 09:47 60 18 101/59 L 97 01/23/19 09:17 60 16 99/62 L 99 01/23/19 08:47 60 16 101/59 L 97 01/23/19 08:32 60 16 101/64 96 01/23/19 08:17 36.6 C 61 16 94/57 L 97 01/23/19 07:42 36.5 C 66 18 102/62 96
--- NOTE | 2019-01-23 19:45 | Discharge Summary ---
Date of Service January 23, 2019 Admission HPI Per Admitting Provider 83-year-old male followed by Dr. Villagran at the [facility] for primary care and by Dr. Noonan for Cardiology. 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 Until about a year ago he was walking about 4 and half miles a day. Over the last 12 months he has noticed progressive dyspnea on exertion. Treadmill stress echo was performed in July, but patient was unable to achieve an adequate workload. His dyspnea worsened and arrangements were being made for an outpatient pharmacologic nuclear stress study. However, over the last 2 days his dyspnea has worsened to the point where he experiences symptoms after ambulating 20 feet. He is able to walk up a flight of stairs without stopping, albeit with difficulty. No associated chest pain, palpitations, dependent edema. Admission Exam Per Admitting Provider Constitutional: WD/WN, vitals as above no acute distress Eyes: PERRL, conjunctivae normal, anicteric sclerae ENMT: external ear and nose normal, oropharynx normal Ears: + hearing impairment Neck: trachea midline, no thyromegaly Respiratory: normal respiratory effort, lungs clear to auscultation Cardiovascular: Rate/Rhythm: regular rate Heart Sounds: no gallop, no murmur and no cardiac rub Vessels: posterior tibial pulses present (1/2 bilat) and dorsalis pedis pulses present (1/2 bilat); no JVD Extremities: normal capillary refill; no calf tenderness and no edema Gastrointestinal (Abdomen): normal bowel sounds, soft, nontender, no hepatosplenomegaly Musculoskeletal: Head/Neck/Chest: neck supple Extremities: strength 5/5 throughout; no cyanosis and no clubbing Skin: no rashes, warm and dry Neurologic: PERRL, EOMI no facial palsy no dysarthria or aphasia patellar DTR's 1/2 bilat Psychiatric: Orientation: alert and oriented x 3 Affect: euthymic affect Lymphatic: no cervical lymphadenopathy Principal Diagnosis Pacemaker generator end-of-life Discharge Exam General- oriented x 3, not in distress, speaks in sentences with no effort or accessory muscle use Eyes- anicteric Neck- no JVD Lungs- clear breath sounds bilaterally Heart- normal rate, regular rhythm; no murmurs Pacemaker site-with dressing in place, no bleeding or discharge No surrounding edema or erythema Abdomen- normal bowel sounds, nondistended, soft, nontender Extremities- no pretibial edema, no calf tenderness Neuro- alert, oriented x 3; no gross focal neurologic deficits Skin- warm & dry Discharge Data Allergies Allergy/AdvReac Type Severity Reaction Status Date / Time lisinopril Allergy Unknown Rxn not Verified 01/21/19 22:52 stated niacin Allergy Unknown Reaction Verified 01/21/19 22:52 not stated Consultations 01/21/19 23:02 ED Decision to Admit Stat 01/22/19 02:15 Consult Cardiology Routine Procedures Performed Operation Date: 01/23/19 07:30 Actual Procedures p Pacer Gen Change Dual - Denzel Vital MD Hospital Course (1) Dyspnea on exertion: Secondary to pacemaker generator reaching end of its life Bus 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 Law consulted Status post replacement of pacemaker generator January 23, 2019 Tolerated procedure well Recommend 5-day course of cephalexin postprocedure Follow-up with cardiology clinic next week for evaluation Resume usual cardiac medications Instructions given to patient and his (2) Coronary artery disease: Coronary artery disease, status post CABG. Continue aspirin, metoprolol, statin. (3) Paroxysmal atrial fibrillation: Currently in paced ventricular rhythm. 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 Status post pacemaker with appropriate sensing and pacing. (5) Myelodysplastic syndrome: CBC stable. (6) Do not resuscitate status: Per advanced directives. (7) DVT prophylaxis: Subcutaneous enoxaparin. Ambulate. (8) Discharge planning issues: Discharge to home Up with cardiology clinic next week as outlined in the discharge instruction sheet Primary care follow-up with Dr. Villagran at the [facility]. C Total Time Total Time Spent Total Time Spent (In Minutes): 40 minutes Discharge Plan Discharge Items Patient Disposition: Home - Self-Care Reason For Visit: CAD, DYSPNEA Discharge Diagnosis: SHORTNESS OF BREATH ON EXERTION, PACEMAKER GENERATOR END OF LIFE, S/P REPLACEMENT Discharge Goals: Diagnostic testing and Therapeutic intervention Activity: As commented below Activity Comment: RESUME ACTIVITY GRADUALLY TOLERATED Lifting: Wait until after follow-up appointment Exercise/Sports: Wait until after follow-up appointment Driving/Machine Use Comment: NO DRIVING UNTIL RE-EVALUATION AND ALLOWED BY CARD IOLOGIST Non-emergency contact: Primary Care Provider Call non-emergency contact if: you have any medication questions, your symptoms worsen, you have a fever, your wound has increased redness, your wound has increased drainage and your wound pain has increased Follow-up/Referrals: Eren Villagran [Primary Care Provider] - Diet: Heart Healthy Addtl Provider Instructions: Return to [facility] Cardiology clinic on 01/31/2019,11:45 AM for wound check, and device interrogation. Keep the wound dry in the Steri-Strip intact until follow-up in the outpatient setting within 1 week. The outer dressing may be removed in the morning. ACTIVITY RECOMMENDATIONS: * Resume activity as tolerated. No restrictions with raising arm. SPECIAL CARE INSTRUCTIONS: Keep the wound dry in the Steri-Strip intact until follow-up in the outpatient setting within 1 week. The outer dressing may be removed in the morning. Complete course of the antibiotic Keflex 500 mg 3 times daily for 5 days. * If bleeding occurs, apply direct pressure to area for 5 minutes. * Call your doctor if you have severe pain, fever, drainage or bleeding at site. * Keep dressing on and dry for 48 hours then remove. * Keep any scheduled doctor's appointment. * Implant Card - hand held device with website information given. SKIN IRRITATION: * You may experience some redness and/or swelling in the area where radiation was administered. If any skin irritation occurs, please contact your family physician. FOLLOW UP VISIT: Keep any scheduled doctor appointments. Prescriptions: New cephalexin 500 mg capsule 500 mg PO TID 5 Days Qty: 15 RF: 0 Continued atorvastatin [Lipitor] 20 mg tablet 20 mg PO Q OTHER DAY RF: 0 amlodipine 5 mg Tablet 5 mg PO DAILY RF: 0 aspirin [Aspir-Low] 81 mg Tablet,Delayed Release (Dr/Ec) 81 mg PO DAILY RF: 0 dorzolamide-timolol 22.3-6.8 mg/mL Drops 1 drp OPB BID RF: 0 glucosamine-chondroitin [Osteo Bi-Flex] 250-200 mg Tablet 1 tab PO DAILY RF: 0 metoprolol tartrate 25 mg Tablet 25 mg PO BID RF: 0 Jadenu 360 mg Tablet 1,080 mg PO DAILY RF: 0 Stand-Alone Forms: [employer] [facility]/Other Patient Handouts: Extraction Lead Discharge Orders: Discharge Order (Routine); Ordered 01/23/19 Ordered By: Espinoza Zhao Admission Data Admit Date/Time: 01/21/19 23:31 Attending Provider: Espinoza Zhao Admit Provider: Vamsi Zendejas Primary Care Provider: Eren Villagran Other Providers: Vamsi Zendejas ; Chaz Law Service: Telemetry Other Interventions: Discharge Summary Assessment (RN) Last Done: 01/23/19 13:49 DC Date/Time DO NOT enter until pt leaves facility: 01/23/19 14:19
== END 2019-01-23 14:19 | disposition home or self-care (01) ==
LOC: ED 18:45 → 2S 18:45

== ENCOUNTER 2019-06-12 09:26 | Inpatient (IN) ==
[2019-06-12] MEDS ORDERED: MoRPHine SULFATE 4 MG/ML 1 ML CARP\\VIAL IV STA (10:07)
[2019-06-12] MEDS ORDERED: ONDANSETRON INJ 2 MG/ML 2 ML VIAL IV STA (10:07)
[2019-06-12] MEDS ORDERED: SODIUM CHLORIDE 0.9% 500 ML IV SCH (10:15)
[2019-06-12] MEDS ORDERED: MoRPHine SULFATE 2 MG/ML CARP ONE (10:25)
[2019-06-12] MEDS ORDERED: IOVERSOL 100ml IV PRN (10:55)
--- NOTE | 2019-06-12 11:18 | CT Scan Report ---
ABDOMEN AND PELVIS CT WITH IV CONTRAST CT DOSE: 521.77 mGy.cm HISTORY: Acute left lower quadrant abdominal pain LLQ pain TECHNIQUE: Multiaxial CT images of the abdomen and pelvis were performed following the IV administrat ion of 94 cc of Optiray 320, A dose lowering technique was utilized adhering to the principles of AL NIC. COMPARISON STUDY: None. FINDINGS: Bibasilar pleural calcifications with bibasilar atelectasis/scarring. No pneumatosis or pneumoperiton eum. The imaged inferior cardiac chambers are mildly enlarged. Coronary arterial calcifications are n oted. Prior median sternotomy. Partially imaged pacer lead of the right ventricle. The spleen, pancre as, gallbladder and adrenal glands are unremarkable. 1.5 cm cyst of the left hepatic lobe. 8 mm proba ble cyst of the right hepatic lobe is also noted. Patency of the hepatic and portal veins. Mildly dec reased enhancement of the left kidney. Mild left-sided hydroureteronephrosis secondary to collection of the left hemipelvis as below. There is a punctate nonobstructing calculus of the interpolar left k idney. Renal sinus cysts of the right kidney are noted. There are a few hypodense foci of the right k idney measuring up to 4 mm, too small to characterize however statistically favoring probable cyst. P artial distention of the urinary bladder with mild wall thickening. Prostatectomy. Indeterminate 12 x 7 mm soft tissue nodule of the left hemipelvis on image 366 series 3. Small fat filled left inguinal hernia. Extensive calcified plaque of the abdominal aorta without aneurysm. Tiny hiatal hernia. No small bowel obstruction. Moderate fecal retention. Extensive colonic diverticu losis. Mild wall thickening with inflammatory stranding about the mid sigmoid colon. There is a thick -walled peripherally enhancing air and fluid-filled collection adjacent to the mid sigmoid colon whic h measures 6.1 x 3.4 x 3.0 cm compatible with abscess. Soft tissues are unremarkable. Degenerative ch anges of the spine, pelvis and hips. Demineralized appearance of the bones. IMPRESSION: 1. Mild acute sigmoid diverticulosis. Thick-walled air and fluid-filled collection adjacent to the mi d sigmoid colon measuring up to 6.1 cm is compatible with associated abscess. The location of this co llection is not amenable to percutaneous drainage. Surgical consultation advised. 2. No pneumatosis or pneumoperitoneum. 3. No bowel obstruction. 4. Prior prostatectomy with indeterminate 1.2 x 0.7 cm soft tissue nodule of the left hemipelvis. 5. Mild left-sided hydroureteronephrosis secondary to mass effect of the distal left ureter from the aforementioned pelvic abscess. 6. Additional findings as above. Electronically signed by: Aaron Gandara M.D. 06/12/2019 11:17 AM
[2019-06-12 11:23] LABS: Basophils # (auto) 0.01 K/uL (0-0.2); Basophils % (auto) 0.1 %; Eosinophils # (auto) 0.18 K/uL (0-0.5); Hematocrit (blood only) 28.3 % (42-52); Hemoglobin 9.4 g/dL (14.0-18.0); Immature Granulocytes # (auto) 0.02 K/uL (0.00-0.02); Immature Granulocytes % (auto) 0.2 %; Lymphocytes # (auto) 1.08 K/uL (1.2-3.4); Lymphocytes % (auto) 11.9 %; Mean Corpuscular Hemoglobin 32.8 pg (25-34); Mean Corpuscular Hgb Conc 33.2 g/dL (32-36); Mean Corpuscular Volume 98.6 fL (80-100); Monocytes # (auto) 0.76 K/uL (0.11-0.59); Monocytes % (auto) 8.4 %; Neutrophils # (auto) 7.01 K/uL (1.4-6.5); Neutrophils % (auto) 77.4 %; Platelet Count 257 K/uL (130-400); RDW Coefficient of Variation 18.9 % (11.5-14.5); RDW Standard Deviation 67.7 fL (36.4-46.3); Red Blood Count 2.87 M/uL (4.7-6.1); White Blood Count 9.06 K/uL (4.8-10.8)
[2019-06-12 11:28] LABS: Appearance Urine Clear (Clear); Bilirubin Urine Negative (Negative); Blood Urine Negative (Negative); Color Urine Yellow; Glucose Urine UA Negative (Negative); Ketones Urine Negative (Negative); Leukocyte Esterase Urine Negative (Negative); Nitrite Urine Negative (Negative); Protein Urine Negative (Negative); Specific Gravity Urine 1.023 (1.000-1.030); Urobilinogen Urine Negative (Negative)
[2019-06-12 11:40] LABS: Alanine Aminotransferase 11 U/L (12-78); Albumin Level 3.2 gm/dl (3.4-5.0); Aspartate Aminotransferase 10 U/L (15-37); BUN Creatinine Ratio 16.7 (10-20); Blood Urea Nitrogen 26 mg/dl (7-18); Calcium 9.1 mg/dl (8.5-10.1); Carbon Dioxide 25 mmol/L (21-32); Chloride 108 mmol/L (98-107); Est GFR (African American) 47.7; Est GFR (Non-African American) 41.1; Glucose 97 mg/dl (70-99); Lipase 141 U/L (73-393); Potassium 4.1 mmol/L (3.5-5.1); Sodium 138 mmol/L (136-145)
[2019-06-12 11:43] LABS: Albumin Globulin Ratio 0.7 (0.9-2); Alkaline Phosphatase 144 U/L (45-117); Bilirubin,Total 0.8 mg/dl (0.2-1); Globulin 4.6 gm/dl (2.5-4.0); Total Protein 7.8 gm/dl (6.4-8.2)
[2019-06-12] MEDS ORDERED: PIPERACILLIN/TAZOBACTAM 4.5 GM/120 ML BAG IV ONE (11:57)
[2019-06-12] MEDS ORDERED: PIPERACILL/TAZOBAC CONSULT ACTIVE PRN (11:57)
[2019-06-12] MEDS ORDERED: VANCOMYCIN HCL 2,250 MG in SODIUM CHLORIDE 0.9% 500 ML IV ONE (11:57)
[2019-06-12] MEDS ORDERED: VANCOMYCIN CONSULT ACTIVE PRN (11:57)
[2019-06-12] MEDS ORDERED: ACETAMINOPHEN 325 MG TAB PO STA (12:25)
[2019-06-12] MEDS ORDERED: DiphenhydrAMINE HCL 50 MG/ML VIAL IV STA (13:28)
--- NOTE | 2019-06-12 15:38 | Surgery Consultation ---
Date of Consultation June 12, 2019 Assessment & Plan (1) Diverticulitis of intestine with abscess: Patient is clinically stable and not toxic. Is in no significant distress. Is afebrile and his white blood cell count is normal Best treatment for this would be interventional radiology with drainage and IV antibiotics. Transfer to [facility] is currently pending. Will be admitted to the medical team continue with limited p.o. intake and possible ice only and IV antibiotics. Try to avoid emergency operation would likely require a colostomy I will continue to follow him History of Present Illness History of Present Illness Patient is an 83-year-old male presenting the emergency room with lower abdominal pain mostly on the left side with some nausea. CAT scan shows very mild diverticulitis with pericolonic abscess which is thick walled of approximately 6 x 4 cm This does not appear to be a acute abscess over the last 1 to 2 days. His white blood cell count is 9 he is afebrile Is have a history of atrial fibrillation with a pacemaker placed and dyspnea on exertion also history of coronary disease status post CABG Allergies Allergy/AdvReac Type Severity Reaction Status Date / Time cephalexin Allergy Severe Rash Unverified 06/12/19 12:33 lisinopril Allergy Unknown Rxn not Verified 06/12/19 12:33 stated niacin Allergy Unknown Reaction Verified 06/12/19 12:33 not stated Home Medications Home Medications Medication Instructions Recorded Confirmed Type amlodipine 5 mg PO QAM 01/21/19 06/12/19 History aspirin [Aspir-Low] 81 mg PO QAM 01/21/19 06/12/19 History atorvastatin [Lipitor] 20 mg PO Q2D 01/21/19 06/12/19 History dorzolamide-timolol 1 drp OPB BID 01/21/19 06/12/19 History glucosamine-chondroitin [Osteo 1 tab PO QAM 01/21/19 06/12/19 History Bi-Flex] metoprolol tartrate 25 mg PO QAM 01/21/19 06/12/19 History acetaminophen [Tylenol Extra 500 mg PO Q6H PRN 06/12/19 06/12/19 History Strength] Patient History Social History Preferred Language: Urdu Communication Ability: Effective Rail Director Required: No Beliefs That Will Affect Care: None Current Living Situation: Spouse Feels Safe at Home: Yes Smoking Status: Never smoker Second Hand Exposure: No ; Hx Alcohol Use: No Hx Substance Use: No Review of Systems Review of Systems: All systems reviewed & are unremarkable except as noted in HPI & below Patient has been being bowel movements and passing flatus although minimal today Physical Exam Constitutional: well developed and well nourished; no acute distress Respiratory: normal respiratory effort; no respiratory distress Cardiovascular: Patient has a paced rhythm Gastrointestinal (Abdomen): Abdomen is relatively soft with some tenderness to deep palpation in the pelvis No peritoneal irritation Skin: no rashes, warm and dry Neurologic: awake Psychiatric: Orientation: alert Results & Data Vital Signs (Past 12 Hours) Vital Signs Temp Pulse Pulse Resp BP BP Pulse Ox 06/12/19 14:30 60 12 105/56 L 95 06/12/19 14:00 60 60 15 105/56 L 105/56 L 97 06/12/19 13:30 62 15 102/58 L 94 06/12/19 13:00 65 18 108/62 97 06/12/19 12:57 64 22 114/63 96 06/12/19 10:46 64 64 18 101/65 96 06/12/19 10:45 61 15 101/65 06/12/19 09:35 36.3 C L 77 20 100/62 99 I did review his CAT scan PG Care Time/CCT Total # of Minutes Spent Total Time Spent with Patient: Total time spent is greater than 50% in coordination of care (as documented) at patient's floor/unit and/or counseling patient:
--- NOTE | 2019-06-12 15:52 | History & Physical Report ---
Date of Service June 12, 2019 Assessment & Plan (1) Diverticulitis of intestine with abscess: This is an 83-year-old male with a PMH of tachybradycardia syndrome s/p pacemaker placement, CAD (h/o CABG 25 yrs ago), HTN, MDS, paroxysmal atrial fibrillation and other medical problems listed below who presents with left lower quadrant pain beginning this morning around 0200 and was found to have diverticulitis with pericolonic abscess. -Hemodynamically stable, afebrile, nontoxic in appearance -Developed left lower quadrant pain early this morning. CT abdomen pelvis reveals very mild diverticulitis with pericolonic abscess approximately 6 x 4 cm -Evaluated by general surgery, who feel that best treatment for patient would be interventional radiology with drainage and IV antibiotics -Has been accepted for transfer to [facility] internal medicine (Dr. Belle) and but bed is not available yet -Will admit to med/surg in meantime for continued IV antibiotics and IV fluids -NPO except ice -General surgery following (2) Acute kidney injury: Creatinine slightly elevated at 1.53 (baseline ~1.2) in setting of poor PO intake -Gentle IV fluids -Daily BMP (3) Tachy-ruben syndrome: S/p pacemaker placement 10 years ago with battery replacement a few months ago -EKG with paced rhythm (4) Paroxysmal A-fib: Paced rhythm on EKG -Continue Toprol (5) CAD (coronary artery disease): H/o CABG 25 years ago. No chest pain or EKG changes -Continue aspirin, Toprol (6) HTN (hypertension): Normotensive -Continue amlodipine, Toprol (7) MDS (myelodysplastic syndrome): CBC stable. Continue monitoring DVT Ppx: SQ heparin Code status: DNR per discussion with patient PCP: Susana Jose Dispo: Admit to med/surg. [place] [facility] [place] availability. Patient seen in collaboration with Dr. Wade. Please see addendum. History of Present Illness Chief Complaint: Abdominal pain Primary Care Provider: Elizabeth Jose MD This is an 83-year-old male with a PMH of tachybradycardia syndrome s/p pacemaker placement, CAD (h/o CABG 25 yrs ago), HTN, MDS, paroxysmal atrial fibrillation and other medical problems listed below who presents with left lower quadrant pain beginning this morning around 0200. Describes pain as 8/10 sharp and constant with associated nausea. Denies fever, chills, vomiting or diarrhea. Decreased appetite since yesterday. In ED, patient was found to be afebrile and hemodynamically stable. No leukocytosis. Hemoglobin stable at 9.5 (baseline 9.5-10.5). Creatinine slightly elevated at 1.53 (baseline ~1.2). CT abdomen pelvis reveals very mild diverticulitis with pericolonic abscess approximately 6 x 4 cm. Was evaluated by surgical service who feel that best treatment for patient would be interventional radiology with drainage and IV antibiotics. Has been accepted for transfer to [facility] internal medicine and but bed is not available yet. Plan to admit to [facility] in the meantime and treat with IV antibiotics. Was started empirically on Vanco and Zosyn in the ED with plans to continue. Patient is currently comfortable with 3/10 pain improved on morphine. Denies any lightheadedness, visual changes, chest pain, palpitations, shortness of breath, nausea, vomiting, dysuria, diarrhea or constipation. Allergies Allergy/AdvReac Type Severity Reaction Status Date / Time cephalexin Allergy Severe Rash Unverified 06/12/19 12:33 lisinopril Allergy Unknown Rxn not Verified 06/12/19 12:33 stated niacin Allergy Unknown Reaction Verified 06/12/19 12:33 not stated Home Medications Home Medications Medication Instructions Recorded Confirmed Type amlodipine 5 mg PO QAM 01/21/19 06/12/19 History aspirin [Aspir-Low] 81 mg PO QAM 01/21/19 06/12/19 History atorvastatin [Lipitor] 20 mg PO Q2D 01/21/19 06/12/19 History dorzolamide-timolol 1 drp OPB BID 01/21/19 06/12/19 History glucosamine-chondroitin [Osteo 1 tab PO QAM 01/21/19 06/12/19 History Bi-Flex] metoprolol tartrate 25 mg PO QAM 01/21/19 06/12/19 History acetaminophen [Tylenol Extra 500 mg PO Q6H PRN 06/12/19 06/12/19 History Strength] Past Med/Surg History Medical History CAD (coronary artery disease) (Chronic) History of nephrolithiasis (Chronic) History of prostate cancer HTN (hypertension) (Chronic) Hyperlipidemia (Chronic) Macular degeneration MDS (myelodysplastic syndrome) (Chronic) Paroxysmal A-fib (Chronic) Tachy-ruben syndrome (Chronic) Surgical History (Updated 06/12/19 @ 16:35 by Evette Cavanaugh PA-C) History of prostatectomy 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, battery recently replaced 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 Family History Mother Coronary heart disease Social History Preferred Language: Greek Communication Ability: Effective Film Crew Member Required: No Beliefs That Will Affect Care: None Current Living Situation: Spouse Feels Safe at Home: Yes Smoking Status: Never smoker Second Hand Exposure: No ; Hx Alcohol Use: Yes Hx Substance Use: No Review of Systems Review of Systems: At least ten systems reviewed and negative except as noted in the HPI. Physical Exam Physical Exam: General Appearance: WD/WN, vitals as above, NAD, sitting up in bed, pleasant, conversing easily Head: normocephalic, atraumatic Eyes: normal inspection, PERRL, conjunctivae normal, anicteric sclerae ENT: external ear and nose normal, oropharynx normal Neck: trachea midline, no thyromegaly normal visual inspection Respiratory: normal respiratory effort, lungs clear to auscultation, no wheeze, rales, rhonchi. Normal insp/exp effort, no accessory muscle use Cardiovascular: regular rate, rhythm, no murmur, normal peripheral pulses. Vessels: no JVD or carotid bruit Chest: normal inspection of chest Abdomen/GI: normal bowel sounds, soft, non-distended, TTP in LLQ without guarding, no hepatosplenomegaly Extremities/Musculoskelatal: no cyanosis or clubbing, extremities motor stre ngth 5/5 Neurologic: PERRL, EOMI, accommodation nl, no face palsy, no dysarthria CN's II-XI intact bilaterally and moves all extremities Psychiatric: A+Ox3, euthymic affect Skin: no rashes, normal color, warm/dry Results & Data Vital Signs (Past 12 Hours) Vital Signs Temp Pulse Pulse Resp BP BP Pulse Ox 06/12/19 14:30 60 12 105/56 L 95 06/12/19 14:00 60 60 15 105/56 L 105/56 L 97 06/12/19 13:30 62 15 102/58 L 94 06/12/19 13:00 65 18 108/62 97 06/12/19 12:57 64 22 114/63 96 06/12/19 10:46 64 64 18 101/65 96 06/12/19 10:45 61 15 101/65 06/12/19 09:35 36.3 C L 77 20 100/62 99 Laboratory Results Short CBC 06/12/19 06/12/19 Range/Units 09:56 10:36 WBC 9.06 (4.8-10.8) K/uL Hgb 9.4 L (14.0-18.0) g/dL Hct 28.3 L (42-52) % Plt Count 257 (130-400) K/uL BMP 06/12/19 09:56 Sodium 138 Potassium 4.1 Chloride 108 H Carbon Dioxide 25 BUN 26 H Creatinine 1.53 H Glucose 97 Calcium 9.1 Liver Function 06/12/19 Range/Units 09:56 Total Bilirubin 0.8 (0.2-1) mg/dl AST 10 L (15-37) U/L ALT 11 L (12-78) U/L Alkaline Phosphatase 144 H (45-117) U/L Albumin 3.2 L (3.4-5.0) gm/dl Urine 06/12/19 06/12/19 Range/Units 09:45 10:33 Urine Color Yellow Urine Appearance Clear (Clear) Urine pH 5.0 (4.5-7.5) Ur Specific [place] 1.023 (1.000-1.030) Urine Protein Negative (Negative) Urine Glucose (UA) Negative (Negative) Diagnostic Findings CT abd/pelvis: IMPRESSION: 1. Mild acute sigmoid diverticulosis. Thick-walled air and fluid-filled collection adjacent to the mid sigmoid colon measuring up to 6.1 cm is compatible with associated abscess. The location of this collection is not amenable to percutaneous drainage. Surgical consultation advised. 2. No pneumatosis or pneumoperitoneum. 3. No bowel obstruction. 4. Prior prostatectomy with indeterminate 1.2 x 0.7 cm soft tissue nodule of the left hemipelvis. 5. Mild left-sided hydroureteronephrosis secondary to mass effect of the distal left ureter from the aforementioned pelvic abscess. 6. Additional findings as above. Code Status & VTE Plan VTE Prophylaxis Plan VTE Prophylaxis will be ordered: Yes Supervising Physician Co-Signing Physician Notes I have seen and examined the patient and have discussed the case with the provider above. I agree with the assessment and plan as stated. 83 yo with intra-abdominal abscess. Surgical recommendation for IR drainage which is unavailable at current facility. Admitted to floor pending available bed at receiving hospital. Reports some worsening pain in LLQ. Currently NPO x ice chips. Heparin. Physical exam with nondistended abdomen and LLQ TTP. He is otherwise mentating well and clinically well-appearing. Exam is otherwise normal and unremarkable. Plan for transfer this evening. Cont IV abx and pain control efforts. Mauro,
[2019-06-12] MEDS ORDERED: ACETAMINOPHEN 1,000 MG/100 ML VIAL IV PRN (16:48)
[2019-06-12] MEDS ORDERED: MoRPHine SULFATE 2 MG/ML CARP IV PRN (16:48)
[2019-06-12] MEDS ORDERED: SODIUM CHLORIDE 0.9% 1000ML 1,000 ML IV SCH (17:00)
--- NOTE | 2019-06-12 17:25 | Emergency Department Note ---
Entered by Elie Boss acting as a scribe for River Campbell MD History of Present Illness General Chief complaint: Abdominal Pain Stated complaint: NAUSEA,LT SIDE ABD PAIN Time Seen by Provider: 06/12/19 09:50 Source: patient History of Present Illness Provider complaint: Abdominal pain Onset (ago): hour(s) 8 Location: abdomen Pain Consistency: + constant Maximum Pain Intensity: 8 Current Pain Intensity: 8 Quality: + sharp Associated symptoms: + denies other symptoms (Urinary symptoms); no nausea/vomiting The patient is an 83 year old male w/ PMHx right side sciatica, pacemaker, HLD, and HTN who presents to the ED w/ CC of constant left sided abdominal pain beginning 8 hours ago while he was sleeping. The patient rates the pain as an 8/10 and describes it as sharp. The patient has never had this pain before nor does he have any history of abdominal issues or surgeries. The patient also endorses an associated fever that was present this morning, however upon arrival to the ED he was afebrile. The patient has not taken anything for pain since the onset. The patient did mention that a couple of weeks ago he had a fall to his left side where he believed he hurt his ribs, but he has not had any other injuries or trauma. The patient denies any vomiting, changes in bowel movements, urinary symptoms, genital pain, or abdominal masses. Home Medications Home Medications Medication Instructions Recorded Confirmed Type amlodipine 5 mg PO QAM 01/21/19 06/12/19 History aspirin [Aspir-Low] 81 mg PO QAM 01/21/19 06/12/19 History atorvastatin [Lipitor] 20 mg PO Q2D 01/21/19 06/12/19 History dorzolamide-timolol 1 drp OPB BID 01/21/19 06/12/19 History glucosamine-chondroitin [Osteo 1 tab PO QAM 01/21/19 06/12/19 History Bi-Flex] metoprolol tartrate 25 mg PO QAM 01/21/19 06/12/19 History acetaminophen [Tylenol Extra 500 mg PO Q6H PRN 06/12/19 06/12/19 History Strength] Allergies Allergy/AdvReac Type Severity Reaction Status Date / Time cephalexin Allergy Severe Rash Unverified 06/12/19 12:33 lisinopril Allergy Unknown Rxn not Verified 06/12/19 12:33 stated niacin Allergy Unknown Reaction Verified 06/12/19 12:33 not stated Past Med/Surg History Medical History CAD (coronary artery disease) (Chronic) History of nephrolithiasis (Chronic) History of prostate cancer HTN (hypertension) (Chronic) Hyperlipidemia (Chronic) Macular degeneration MDS (myelodysplastic syndrome) (Chronic) Paroxysmal A-fib (Chronic) Tachy-ruben syndrome (Chronic) Surgical History (Updated 06/12/19 @ 16:35 by Evette Cavanaugh PA-C) History of prostatectomy 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, battery recently replaced 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 and A total of 10 systems reviewed and were otherwise negative Physical Exam Vital Signs Vital Signs - 24 hr 06/12/19 09:35 06/12/19 10:45 06/12/19 10:46 Temperature 36.3 C L Temperature Source Oral Pulse Rate 77 61 64 Pulse Rate [Apical] 64 Pulse Rate from SpO2 Sensor Pulse Rhythm Regular Pulse Rhythm [Apical] Regular Pulse Strength [Apical] Normal Respiratory Rate 20 15 18 Respiratory Effort / Characteristics Non-Labored Spontaneous Non-Labored Spontaneous Respiratory Depth Normal Normal Respiratory Pattern Regular Blood Pressure 100/62 101/65 Blood Pressure [Left Arm] 101/65 Blood Pressure Mean 74 73 Blood Pressure Mean [Left Arm] 77 Blood Pressure Position Sitting Blood Pressure Position [Left Arm] Sitting Pulse Oximetry 99 96 Oxygen Delivery Method Room Air Room Air Sepsis Recent Fever Within 48 Hours No Sepsis Action Taken by Nursing No Action Required 06/12/19 12:57 06/12/19 13:00 06/12/19 13:30 Temperature Temperature Source Pulse Rate 64 65 62 Pulse Rate [Apical] Pulse Rate from SpO2 Sensor 61 60 60 Pulse Rhythm Pulse Rhythm [Apical] Pulse Strength [Apical] Respiratory Rate 22 18 15 Respiratory Effort / Characteristics Respiratory Depth Respiratory Pattern Blood Pressure 114/63 108/62 102/58 L Blood Pressure [Left Arm] Blood Pressure Mean 79 80 63 Blood Pressure Mean [Left Arm] Blood Pressure Position Blood Pressure Position [Left Arm] Pulse Oximetry 96 97 94 Oxygen Delivery Method Room Air Room Air Room Air Sepsis Recent Fever Within 48 Hours Sepsis Action Taken by Nursing 06/12/19 14:00 06/12/19 14:30 06/12/19 15:00 Temperature Temperature Source Pulse Rate 60 60 60 Pulse Rate [Apical] 60 Pulse Rate from SpO2 Sensor 59 L 60 60 Pulse Rhythm Pulse Rhythm [Apical] Pulse Strength [Apical] Respiratory Rate 15 12 15 Respiratory Effort / Characteristics Respiratory Depth Respiratory Pattern Blood Pressure 105/56 L 105/56 L 107/59 L Blood Pressure [Left Arm] 105/56 L Blood Pressure Mean 66 74 68 Blood Pressure Mean [Left Arm] 72 Blood Pressure Position Blood Pressure Position [Left Arm] Pulse Oximetry 97 95 97 Oxygen Delivery Method Room Air Room Air Room Air Sepsis Recent Fever Within 48 Hours Sepsis Action Taken by Nursing 06/12/19 15:30 Temperature Temperature Source Pulse Rate 64 Pulse Rate [Apical] Pulse Rate from SpO2 Sensor 61 Pulse Rhythm Pulse Rhythm [Apical] Pulse Strength [Apical] Respiratory Rate 15 Respiratory Effort / Characteristics Respiratory Depth Respiratory Pattern Blood Pressure 115/65 Blood Pressure [Left Arm] Blood Pressure Mean 89 Blood Pressure Mean [Left Arm] Blood Pressure Position Blood Pressure Position [Left Arm] Pulse Oximetry 98 Oxygen Delivery Method Room Air Sepsis Recent Fever Within 48 Hours Sepsis Action Taken by Nursing GENERAL: Well appearing, well nourished, NAD, non-toxic. EYE EXAM: Normal conjunctiva. PERRL, no anisocoria and EOM's grossly intact w/o pain. OROPHARYNX: Moist mucus membranes. Grossly normal dentition. NECK: Supple, no nuchal rigidity, no adenopathy, non-tender. No signs of meningismus. LUNGS: Clear to auscultation. Normal chest wall mechanics. HEART: NSR, no MRG. CHEST: Pacemaker in left chest. ABDOMEN: Abdomen soft, LLQ tenderness with no overlying skin changes or masses, normo-active bowel sounds, no rebound or guarding. BACK: No CVA TTP. SKIN: No rashes and no bruising. UPPER EXTREMITIES: Upper extremities are grossly normal. LOWER EXTREMITIES: No pitting edema. No calf pain. NEURO EXAM: A&O x3, cranial nerves II-XII grossly intact, normal speech, moves all 4 extremities on command w/o issue. Course Course 09: Past medical records reviewed. The patient was evaluated in room B11B, and a complete history and physical examination were performed. The patient was placed on a cardiac catheterization technologist. 1200: I spoke to Dr. Tree Whittington about the patient's case and he is going to review the patient's CT scan. 1208: I spoke to Dr. Leavitt after he evaluated the imaging and he recommended transfer. 1220: I updated the patient and he would like to go to [facility]. 1227: [facility] about the patient's case. He has agreed to accept the patient as a transfer for further evaluation. 1346: I reevaluated the patient and he is resting in bed in stable condition. We are still waiting on an available bed. 1415: We are still waiting on bed placement. 1512: Given that [facility] is not able to provide a bed for the patient, the [facility] Hospitalist service has been paged for admission. I discussed the patient's case with Evette TORRES who is working under Dr. Mauro De La Rosa. They agreed to accept the patient until a bed is available. 1517: I spoke to Dr. Leavitt to update him that the patient is going to be admitted to the hospitalist service. 1525: Dr. Leavitt is at bedside evaluating the patient. Consultations Consultation #1: I spoke to Dr. Tree Whittington about the patient's case and he is going to review the patient's CT scan. Time: 12:00 Consultation #2: I [facility] about the patient's case. He has agreed to accept the patient as a transfer for further evaluation. Time: 12:27 Consultation #3: Given that [facility] is not able to provide a bed for the patient, the [facility] service has been paged for admission. I dis cussed the patient's case with Evette TORRES who is working under Dr. Mauro De La Rosa. They agreed to accept the patient until a bed is available. Time: 15:12 Administered Medications Discontinued Medications Acetaminophen (Tylenol) 650 mg PO NOW STA Stop: 06/12/19 12:26 Last Admin: 06/12/19 13:01 Dose: 650 mg Documented by: [id number] Diphenhydramine HCl (Benadryl) 12.5 mg IV NOW STA Stop: 06/12/19 13:29 Last Admin: 06/12/19 14:01 Dose: 12.5 mg Documented by: [id number] Sodium Chloride (Nss) 500 mls @ 999 mls/hr IV .Q31M DUC Stop: 06/12/19 10:45 Last Infusion: 06/12/19 11:34 Dose: 0 mls/hr Documented by: [id number] Admin: 06/12/19 10:39 Dose: 999 mls/hr Documented by: [id number] Vancomycin HCl 2,250 mg/ (Sodium Chloride) 545 mls @ 200 mls/hr IV NOW ONE Stop: 06/12/19 14:40 Last Infusion: 06/12/19 17:18 Dose: 0 mls/hr Documented by: [id number] Admin: 06/12/19 14:50 Dose: 200 mls/hr Documented by: [id number] Piperacillin Sod/Tazobactam Sod (Zosyn) 4.5 gm in 120 mls @ 240 mls/hr IV NOW ONE Stop: 06/12/19 12:26 Last Infusion: 06/12/19 14:50 Dose: 0 mls/hr Documented by: [id number] Admin: 06/12/19 14:03 Dose: 240 mls/hr Documented by: [id number] Ioversol (Optiray 320 100ml) 94 ml IV ONCE PRN PRN Reason: Interaction Checking Stop: 06/16/19 10:54 Last Admin: 06/12/19 10:56 Dose: 94 ml Documented by: [id number] Morphine Sulfate (Morphine Sulfate) 2 mg IV NOW STA Stop: 06/12/19 10:08 Last Admin: 06/12/19 10:40 Dose: Not Given Documented by: [id number] Morphine Sulfate (Morphine Sulfate) Confirm Administered Dose 2 mg .ROUTE .STK- MED ONE Stop: 06/12/19 10:26 Last Admin: 06/12/19 10:39 Dose: 2 mg Documented by: [id number] Ondansetron HCl (Zofran) 4 mg IV NOW STA Stop: 06/12/19 10:08 Last Admin: 06/12/19 10:39 Dose: 4 mg Documented by: [id number] Medical Decision Making Differential Diagnosis Differential diagnoses includes but is not limited to gastritis, peptic ulcer disease, GERD, gallbladder disease, pancreatitis, small bowel obstruction, acute coronary syndrome, pericarditis, ischemic bowel, irritable bowel disease, irritable bowel syndrome, appendicitis, diverticulitis, malignancy, hernia, urinary tract infection, torsion, perforation, trauma, infectious. Medical Records Attestation: I reviewed the patient's medical records. Home Medications Current Medication List: was personally reviewed by me Laboratory Data Attestation: I reviewed the patient's lab results. Result diagrams: 06/12/19 10:36 06/12/19 09:56 Lab Results 06/12/19 06/12/19 06/12/19 Range/Units 09:45 09:56 09:56 WBC (4.8-10.8) K/uL RBC (4.7-6.1) M/uL Hgb (14.0-18.0) g/dL Hct (42-52) % MCV (80-100) fL MCH (25-34) pg MCHC (32-36) g/dL RDW Std Deviation (36.4-46.3) fL RDW Coeff of Ganga (11.5-14.5) % Plt Count (130-400) K/uL MPV (7.4-10.4) fL Immature Gran % (Auto) % Neut % (Auto) % Lymph % (Auto) % Forest % (Auto) % Eos % (Auto) % Baso % (Auto) % Immature Gran # (Auto) (0.00-0.02) K/uL Neut # (Auto) (1.4-6.5) K/uL Lymph # (Auto) (1.2-3.4) K/uL Forest # (Auto) (0.11-0.59) K/uL Eos # (Auto) (0-0.5) K/uL Baso # (Auto) (0-0.2) K/uL Sodium 138 (136-145) mmol/L Potassium 4.1 (3.5-5.1) mmol/L Chloride 108 H (98-107) mmol/L Carbon Dioxide 25 (21-32) mmol/L Anion Gap 5.0 (3-11) BUN 26 H (7-18) mg/dl Creatinine 1.53 H (0.6-1.4) mg/dl Est Cr Clr Drug Dosing Not Reportable Est GFR ( Amer) 47.7 Est GFR (Non-Af Amer) 41.1 BUN/Creatinine Ratio 16.7 (10-20) Glucose 97 (70-99) mg/dl Calcium 9.1 (8.5-10.1) mg/dl Total Bilirubin 0.8 (0.2-1) mg/dl AST 10 L (15-37) U/L ALT 11 L (12-78) U/L Alkaline Phosphatase 144 H (45-117) U/L Total Protein 7.8 (6.4-8.2) gm/dl Albumin 3.2 L (3.4-5.0) gm/dl Globulin 4.6 H (2.5-4.0) gm/dl Albumin/Globulin Ratio 0.7 L (0.9-2) Lipase 141 (73-393) U/L TSH (0.300-4.500) uIu/ml Urine Color Urine Appearance (Clear) Urine pH (4.5-7.5) Ur Specific Warren (1.000-1.030) Urine Protein (Negative) Urine Glucose (UA) (Negative) Urine Ketones (Negative) Urine Blood (Negative) Urine Nitrite (Negative) Urine Bilirubin (Negative) Urine Urobilinogen (Negative) Ur Leukocyte Esterase (Negative) Urine WBC (Auto) (0-5) /hpf Urine RBC (Auto) (0-4) /hpf U Hyaline Cast (Auto) (0-5) /lpf U Epithel Cells (Auto) (0-5) /lpf Urine Bacteria (Auto) (Negative) 06/12/19 06/12/19 06/12/19 Range/Units 09:56 10:33 10:36 WBC 9.06 (4.8-10.8) K/uL RBC 2.87 L (4.7-6.1) M/uL Hgb 9.4 L (14.0-18.0) g/dL Hct 28.3 L (42-52) % MCV 98.6 (80-100) fL MCH 32.8 (25-34) pg MCHC 33.2 (32-36) g/dL RDW Std Deviation 67.7 H (36.4-46.3) fL RDW Coeff of Ganga 18.9 H (11.5-14.5) % Plt Count 257 (130-400) K/uL MPV 11.0 H (7.4-10.4) fL Immature Gran % (Auto) 0.2 % Neut % (Auto) 77.4 % Lymph % (Auto) 11.9 % Forest % (Auto) 8.4 % Eos % (Auto) 2.0 % Baso % (Auto) 0.1 % Immature Gran # (Auto) 0.02 (0.00-0.02) K/uL Neut # (Auto) 7.01 H (1.4-6.5) K/uL Lymph # (Auto) 1.08 L (1.2-3.4) K/uL Forest # (Auto) 0.76 H (0.11-0.59) K/uL Eos # (Auto) 0.18 (0-0.5) K/uL Baso # (Auto) 0.01 (0-0.2) K/uL Sodium (136-145) mmol/L Potassium (3.5-5.1) mmol/L Chloride (98-107) mmol/L Carbon Dioxide (21-32) mmol/L Anion Gap (3-11) BUN (7-18) mg/dl Creatinine (0.6-1.4) mg/dl Est Cr Clr Drug Dosing Est GFR ( Amer) Est GFR (Non-Af Amer) BUN/Creatinine Ratio (10-20) Glucose (70-99) mg/dl Calcium (8.5-10.1) mg/dl Total Bilirubin (0.2-1) mg/dl AST (15-37) U/L ALT (12-78) U/L Alkaline Phosphatase (45-117) U/L Total Protein (6.4-8.2) gm/dl Albumin (3.4-5.0) gm/dl Globulin (2.5-4.0) gm/dl Albumin/Globulin Ratio (0.9-2) Lipase (73-393) U/L TSH 3.450 (0.300-4.500) uIu/ml Urine Color Yellow Urine Appearance Clear (Clear) Urine pH 5.0 (4.5-7.5) Ur Specific Warren 1.023 (1.000-1.030) Urine Protein Negative (Negative) Urine Glucose (UA) Negative (Negative) Urine Ketones Negative (Negative) Urine Blood Negative (Negative) Urine Nitrite Negative (Negative) Urine Bilirubin Negative (Negative) Urine Urobilinogen Negative (Negative) Ur Leukocyte Esterase Negative (Negative) Urine WBC (Auto) (0-5) /hpf Urine RBC (Auto) (0-4) /hpf U Hyaline Cast (Auto) (0-5) /lpf U Epithel Cells (Auto) (0-5) /lpf Urine Bacteria (Auto) (Negative) Imaging Data Radiologist's Impression: Radiology results as stated below per my review and the radiologist's interpretation: ABDOMEN AND PELVIS CT WITH IV CONTRAST CT DOSE: 521.77 mGy.cm HISTORY: Acute left lower quadrant abdominal pain LLQ pain TECHNIQUE: Multiaxial CT images of the abdomen and pelvis were performed following the IV administration of 94 cc of Optiray 320, A dose lowering technique was utilized adhering to the principles of ALARA. COMPARISON STUDY: None. FINDINGS: Bibasilar pleural calcifications with bibasilar atelectasis/scarring. No pneumatosis or pneumoperitoneum. The imaged inferior cardiac chambers are mildly enlarged. Coronary arterial calcifications are noted. Prior median sternotomy. Partially imaged pacer lead of the right ventricle. The spleen, pancreas, gallbladder and adrenal glands are unremarkable. 1.5 cm cyst of the left hepatic lobe. 8 mm probable cyst of the right hepatic lobe is also noted. Patency of the hepatic and portal veins. Mildly decreased enhancement of the left kidney. Mild left-sided hydroureteronephrosis secondary to collection of the left hemipelvis as below. There is a punctate nonobstructing calculus of the interpolar left kidney. Renal sinus cysts of the right kidney are noted. There are a few hypod ense foci of the right kidney measuring up to 4 mm, too small to characterize however statistically favoring probable cyst. Partial distention of the urinary bladder with mild wall thickening. Prostatectomy. Indeterminate 12 x 7 mm soft tissue nodule of the left hemipelvis on image 366 series 3. Small fat filled left inguinal hernia. Extensive calcified plaque of the abdominal aorta without aneurysm. Tiny hiatal hernia. No small bowel obstruction. Moderate fecal retention. Extensive colonic diverticulosis. Mild wall thickening with inflammatory stranding about the mid sigmoid colon. There is a thick-walled peripherally enhancing air and fluid-filled collection adjacent to the mid sigmoid colon which measures 6.1 x 3.4 x 3.0 cm compatible with abscess. Soft tissues are unremarkable. Degenerative changes of the spine, pelvis and hips. Demineralized appearance of the bones. IMPRESSION: 1. Mild acute sigmoid diverticulosis. Thick-walled air and fluid-filled collection adjacent to the mid sigmoid colon measuring up to 6.1 cm is compatible with associated abscess. The location of this collection is not amenable to percutaneous drainage. Surgical consultation advised. 2. No pneumatosis or pneumoperitoneum. 3. No bowel obstruction. 4. Prior prostatectomy with indeterminate 1.2 x 0.7 cm soft tissue nodule of the left hemipelvis. 5. Mild left-sided hydroureteronephrosis secondary to mass effect of the distal left ureter from the aforementioned pelvic abscess. 6. Additional findings as above. Electronically signed by: Aaron Gandara M.D. 06/12/2019 11:17 AM ECG Data Attestation: I personally reviewed and interpreted this ECG as follows: Indication: + abdominal pain Rate (beats per minute): 60 Rhythm: + other (A-Paced) ECG Intervals/blocks: + Normal QRS ECG ST segments: + T-wave inversions (Lead 3); no ST depression and no ST elevation Blood Pressure Blood Pressure Findings: Normal blood pressure MDM Narrative The patient is an 83 year old male w/ PMHx right side sciatica, pacemaker, HLD, and HTN who presents to the ED w/ CC of constant left sided abdominal pain beginning 8 hours ago while he was sleeping. Patient was seen in eval at the bedside. The patient was presenting with acute onset of left-sided abdominal discomfort beginning at 2 AM this morning. The patient does not appear in extremis. The patient does have localized tenderness to the left lower abdomen. Blood work was obtained along with an EKG and a CT of the abdomen pelvis. The patient has a normal white count. Hemoglobin is 9.4 approximately one-point down barring for one-point variation between draws. The patient denies any dark tarry stool of bright red blood per rectum. Platelet count is normal. Patient's kidney function shows a mild change in his creatini ne 1.3-1.5. The patient did receive IV fluids. The patient does have a slightly elevated alk phos. Patient has no right upper quadrant pain and his bilirubin is normal. Urinalysis is negative. CT of the abdomen pelvis did show concern for an area of associated abscess approximately 6.1 cm. The patient also does have an element of hydroureteronephrosis secondary to the mass-effect from the abscess. Patient is still making urine the patient only has a marginal change in kidney function. I did speak with the on-call general surgeon who recommended IR drainage. I did speak with the hospitalist service at [facility] as a medicine admit and IR consult. Patient had already been given antibiotics and was accepted by the medicine service. The patient subsequently was sent to the emergency department for approximate 3 to 4 hours. Given this difficulty and with no pending bed to be available I did speak with the on-call hospitalist who agreed to further evaluate and accepted the patient. I also did rediscuss the patient's case with the on-call general surgeon who agreed to be on his consult. Do not believe the patient requires any emergent IR drainage. Furthermore, the general surgeon did relate that this likely has been there for some time given the thick-walled nature of the abscess. Patient is admitted to the medicine service and may have eventual transfer versus reassessment and repeat CT imaging per the medicine team. Impression & Plan Intra-abdominal abscess, Abdominal pain, LLQ, Dehydration, Anemia Discharge Plan Visit Data *Final* Discharge Date/Time: 06/12/19 16:53 Chief Complaint: Abdominal Pain Stated Complaint: NAUSEA,LT SIDE ABD PAIN ED Provider: River Campbell Discharge Problem: Intra-abdominal abscess, Abdominal pain, LLQ, Dehydration, Anemia Patient Disposition: Admitted As Inpatient Discharge Instructions Interventions: ED Discharge Assessment Last Done: 06/12/19 16:53 Discharge Problem: Anemia Qualifiers: Anemia type: unspecified type Qualified Code(s): D64.9 - Anemia, unspecified The scribe's documentation has been prepared under my direction and personally reviewed by me in its entirety. I confirm that the note above accurately reflects all work, treatment, procedures, and medical decision making performed by me.
--- NOTE | 2019-06-12 17:33 | Discharge Summary ---
Date of Service June 12, 2019 Admission HPI Per Admitting Provider This is an 83-year-old male with a PMH of tachybradycardia syndrome s/p pacemaker placement, CAD (h/o CABG 25 yrs ago), HTN, MDS, paroxysmal atrial fibrillation and other medical problems listed below who presents with left lower quadrant pain beginning this morning around 0200. Describes pain as 8/10 sharp and constant with associated nausea. Denies fever, chills, vomiting or diarrhea. Decreased appetite since yesterday. In ED, patient was found to be afebrile and hemodynamically stable. No leukocytosis. Hemoglobin stable at 9.5 (baseline 9.5-10.5). Creatinine slightly elevated at 1.53 (baseline ~1.2). CT abdomen pelvis reveals very mild diverticulitis with pericolonic abscess approximately 6 x 4 cm. Was evaluated by surgical service who feel that best treatment for patient would be interventional radiology with drainage and IV antibiotics. Has been accepted for transfer to [facility] internal medicine and but bed is not available yet. Plan to admit to [facility] in the meantime and treat with IV antibiotics. Was started empirically on Vanco and Zosyn in the ED with plans to continue. Patient is currently comfortable with 3/10 pain improved on morphine. Denies any lightheadedness, visual changes, chest pain, palpitations, shortness of breath, nausea, vomiting, dysuria, diarrhea or constipation. Admission Exam Per Admitting Provider General Appearance: WD/WN, vitals as above, NAD, sitting up in bed, pleasant, conversing easily Head: normocephalic, atraumatic Eyes: normal inspection, PERRL, conjunctivae normal, anicteric sclerae ENT: external ear and nose normal, oropharynx normal Neck: trachea midline, no thyromegaly normal visual inspection Respiratory: normal respiratory effort, lungs clear to auscultation, no wheeze, rales, rhonchi. Normal insp/exp effort, no accessory muscle use Cardiovascular: regular rate, rhythm, no murmur, normal peripheral pulses. Vessels: no JVD or carotid bruit Chest: normal inspection of chest Abdomen/GI: normal bowel sounds, soft, non-distended, TTP in LLQ without guarding, no hepatosplenomegaly Extremities/Musculoskelatal: no cyanosis or clubbing, extremities motor strength 5/5 Neurologic: PERRL, EOMI, accommodation nl, no face palsy, no dysarthria CN's II-XI intact bilaterally and moves all extremities Psychiatric: A+Ox3, euthymic affect Skin: no rashes, normal color, warm/dry Principal Diagnosis diverticulitis with abscess Discharge Exam CONSTITUTIONAL: WNWD, vitals as above, generally well-appearing EYES: normal conjunctivae, no scleral icterus ENT: MMM RESPIRATORY: clear to auscultation bilaterally, no crackles, rales or wheezes, normal respiratory effort CARDIOVASCULAR: regular rate and rhythm, S1 and 2 heard without murmurs, gallops or rubs, no JVD, no peripheral edema GASTROINTESTINAL: normal bowel sounds, soft, TTP in LLQ, nondistended MUSCULOSKELETAL: strength 5/5 throughout, head is normocephalic and atraumatic SKIN: warm and dry NEUROLOGIC: CN 2-12 grossly intact, no sensory deficit, normal cognition, norm al speech, no tremor, no gross focal deficits. PSYCHIATRIC: alert cooperative and oriented to person, place and time. Discharge Data Allergies Allergy/AdvReac Type Severity Reaction Status Date / Time cephalexin Allergy Severe Rash Unverified 06/12/19 12:33 lisinopril Allergy Unknown Rxn not Verified 06/12/19 12:33 stated niacin Allergy Unknown Reaction Verified 06/12/19 12:33 not stated Consultations 06/12/19 15:42 ED Decision to Admit Stat 06/12/19 17:09 Consult General Surgery Routine Ordered Studies Short CBC 06/12/19 06/12/19 Range/Units 09:56 10:36 WBC 9.06 (4.8-10.8) K/uL Hgb 9.4 L (14.0-18.0) g/dL Hct 28.3 L (42-52) % Plt Count 257 (130-400) K/uL BMP 06/12/19 09:56 Sodium 138 Potassium 4.1 Chloride 108 H Carbon Dioxide 25 BUN 26 H Creatinine 1.53 H Glucose 97 Calcium 9.1 Liver Function 06/12/19 Range/Units 09:56 Total Bilirubin 0.8 (0.2-1) mg/dl AST 10 L (15-37) U/L ALT 11 L (12-78) U/L Alkaline Phosphatase 144 H (45-117) U/L Albumin 3.2 L (3.4-5.0) gm/dl Urine 06/12/19 06/12/19 Range/Units 09:45 10:33 Urine Color Yellow Urine Appearance Clear (Clear) Urine pH 5.0 (4.5-7.5) Ur Specific Blanco 1.023 (1.000-1.030) Urine Protein Negative (Negative) Urine Glucose (UA) Negative (Negative) 06/12/19 10:07 CT abd pelvis IV con FINDINGS: Bibasilar pleural calcifications with bibasilar atelectasis/scarring. No pneumatosis or pneumoperitoneum. The imaged inferior cardiac chambers are mildly enlarged. Coronary arterial calcifications are noted. Prior median sternotomy. Partially imaged pacer lead of the right ventricle. The spleen, pancreas, gallbladder and adrenal glands are unremarkable. 1.5 cm cyst of the left hepatic lobe. 8 mm probable cyst of the right hepatic lobe is also noted. Patency of the hepatic and portal veins. Mildly decreased enhancement of the left kidney. Mild left-sided hydroureteronephrosis secondary to collection of the left hemipelvis as below. There is a punctate nonobstructing calculus of the interpolar left kidney. Renal sinus cysts of the right kidney are noted. There are a few hypodense foci of the right kidney measuring up to 4 mm, too small to characterize however statistically favoring probable cyst. Partial distention of the urinary bladder with mild wall thickening. Prostatectomy. Indeterminate 12 x 7 mm soft tissue nodule of the left hemipelvis on image 366 series 3. Small fat filled left inguinal hernia. Extensive calcified plaque of the abdominal aorta without aneurysm. Tiny hiatal hernia. No small bowel obstruction. Moderate fecal retention. Extensive colonic diverticulosis. Mild wall thickening with inflammatory stranding about the mid sigmoid colon. There is a thick-walled peripherally enhancing air and fluid-filled collection adjacent to the mid sigmoid colon which measures 6.1 x 3.4 x 3.0 cm compatible with abscess. Soft tissues are unremarkable. Degenerative changes of the spine, pelvis and hips. Demineralized appearance of the bones. IMPRESSION: 1. Mild acute sigmoid diverticulosis. Thick-walled air and fluid-filled collection adjacent to the mid sigmoid colon measuring up to 6.1 cm is compatible with associated abscess. The location of this collection is not amenable to percutaneous drainage. Surgical consultation advised. 2. No pneumatosis or pneumoperitoneum. 3. No bowel obstruction. 4. Prior prostatectomy with indeterminate 1.2 x 0.7 cm soft tissue nodule of the left hemipelvis. 5. Mild left-sided hydroureteronephrosis secondary to mass effect of the distal left ureter from the aforementioned pelvic abscess. 6. Additional findings as above. Hospital Course (1) Diverticulitis of intestine with abscess: (2) Acute kidney injury: This is an 83-year-old male with a PMH of tachybradycardia syndrome s/p pacemaker placement, CAD (h/o CABG 25 yrs ago), HTN, MDS, paroxysmal atrial fibrillation and other medical problems listed below who presented with left lower quadrant pain beginning this morning around 0200 and was found to have mild diverticulitis with pericolonic abscess approximately 6 x [address] abd/pelvis. Was evaluated by surgical service who feel that best treatment for patient would be interventional radiology with drainage and IV antibiotics. Has been accepted for transfer to [facility] internal medicine and but bed is not available yet. Plan to admit to [facility] in the meantime and continue treatment with IV Zosyn and vancomycin. Patient is afebrile and hemodynamically stable. No leukocytosis. Hemoglobin stable at 9.5 (baseline 9.5-10.5). Creatinine slightly elevated at 1.53 (baseline ~1.2). Plan to continue gentle IV fluids, manage pain with IV Tylenol and morphine PRN. Is to be kept NPO except for ice. CODE STATUS is DNR per discussion with patient. Current Inpatient Medications Amlodipine Besylate (Norvasc) 5 mg PO QAM DUC Stop: 07/13/19 08:59 Dorzolamide/Timolol (Cosopt) 1 drops OPB BID DUC Stop: 07/12/19 20:59 Heparin Sodium (Porcine) (Heparin Sodium (Porcine)) 5,000 units SQ Q8 DUC Stop: 07/12/19 21:59 Sodium Chloride (Nss 1000ml) 1,000 mls @ 100 mls/hr IV .Q10H DUC Stop: 06/13/19 02:59 Last Admin: 06/12/19 17:42 Dose: 100 mls/hr Acetaminophen (Ofirmev) 1,000 mg in 100 mls @ 400 mls/hr IV Q8H PRN PRN Reason: Pain or Fever Stop: 06/15/19 16:47 Vancomycin HCl 1,000 mg/ (Sodium Chloride) 270 mls @ 125 mls/hr IV Q12H [facility] Stop: 06/23/19 01:59 Piperacillin Sod/Tazobactam (Sod 3.375 gm/ Dextrose) 115 mls @ 28.75 mls/hr IV Q8H [facility]; Protocol Stop: 06/22/19 19:59 Metoprolol Tartrate (Lopressor) 25 mg PO QAM DUC Stop: 07/13/19 08:59 Morphine Sulfate (Morphine Sulfate) 2 mg IV Q4H PRN PRN Reason: Pain Stop: 06/26/19 16:47 Total Time Total Time Spent Total Time Spent (In Minutes): 60 Total Time Includes: Examination of the Patient, Discharge Planning, Medication Reconciliation and Communication With Other Providers Discharge Plan Discharge Items Patient Disposition: Transfer Acute Care Hospital Reason For Visit: DIVERTICULITIS WITH ABSCESS AWAITING TRANSFER Discharge Diagnosis: DIVERTICULITIS WITH ABSCESS Condition on Discharge: Fair Activity: As commented below Activity Comment: per instructions from receiving facility Non-emergency contact: Primary Care Provider Call non-emergency contact if: you have any medication questions, your symptoms worsen, your pain is not controlled and your temperature is above 101 Follow-up/Referrals: Elizabeth Jose MD [Primary Care Provider] - Diet: Regular Diet Comment: NPO for now except ice Addtl Attending Provider Instructions: Patient is being transferred to [facility] via ambulance for treatment of pericolonic abscess seen on CT abd/pelvis imaging. Please continue the following scheduled antibiotics: Zosyn 3.375gm IV Q8H next due at 2000 on 06/12/19 as well as vancomycin 1,000mg IV Q12 next due at 0200 on 06/13/19. Please arrange for hospital follow up appointment with PCP (Dr. Susana Jose) within a week of discharge from receiving facility. It was a pleasure taking care of you! Please call if you have any questions or problems. You can reach a [facility] hospitalist on duty at [facility] 24 hours a day by calling [phone]. Take care of yourself. Pau Wade, DO [facility] Hospitalist Pending Studies at Discharge: Yes Studies:: blood cultures Stand-Alone Forms: My [facility] Skilled Items Patient informed of condition?: Yes DNR: Yes Discharge Level of Care: Other Communicable Disease: No Discharge Prognosis: Stable Lines: Peripheral IV Urinary Catheter: No Medications and DC Order Prescriptions: Continued atorvastatin [Lipitor] 20 mg tablet 20 mg PO Q2D RF: 0 amlodipine 5 mg Tablet 5 mg PO QAM RF: 0 aspirin [Aspir-Low] 81 mg Tablet,Delayed Release (Dr/Ec) 81 mg PO QAM RF: 0 dorzolamide-timolol 22.3-6.8 mg/mL Drops 1 drp OPB BID RF: 0 glucosamine-chondroitin [Osteo Bi-Flex] 250-200 mg Tablet 1 tab PO QAM RF: 0 metoprolol tartrate 25 mg Tablet 25 mg PO QAM RF: 0 acetaminophen [Tylenol Extra Strength] 500 mg Tablet 500 mg PO Q6H PRN (Reason: pain/fever) RF: 0 Discharge Orders: Discharge Order (Routine); Ordered 06/12/19 Ordered By: Pau Wade Admission Data Admit Date/Time: 06/12/19 15:49 Attending Provider: Pau Wade Admit Provider: Pau Wade Primary Care Provider: Elizabeth Jose Other Providers: Pau Wade ; Elie Leavitt
[2019-06-12] MEDS ORDERED: PIPERACILLIN/TAZOBACTAM 3.375 GM in DEXTROSE 5% 100 ML IV SCH (20:00)
[2019-06-12] MEDS ORDERED: DORZOLAMIDE/TIMOLOL 22.3/6.8MG/ML 10 ML BTL OPB SCH (21:00)
[2019-06-12] MEDS ORDERED: HEPARIN SOD 5,000 UNIT/0.5 ML VIAL SQ SCH (22:00)
[2019-06-13] MEDS ORDERED: VANCOMYCIN HCL 1,000 MG in SODIUM CHLORIDE 0.9% 250 ML IV SCH (02:00)
[2019-06-13] MEDS ORDERED: AMLODIPINE BESYLATE 5 MG TAB PO SCH (09:00)
[2019-06-13] MEDS ORDERED: METOPROLOL TARTRATE 25 MG TAB PO SCH (09:00)
== END 2019-06-12 21:17 | disposition short-term general hospital (02) | DRG 392 ==
LOC: ED 09:26 → 3N 15:49

== ENCOUNTER 2020-12-26 19:07 | Inpatient (IN) ==
[2020-12-26] MEDS ORDERED: ALBUT/IPRATROP 3MG/0.5MG NEB 3 ML VIAL INH STA (19:24)
[2020-12-26] MEDS ORDERED: methylPREDNISolone 125 MG/2 ML VIAL IV STA (19:24)
--- NOTE | 2020-12-26 19:28 | Emergency Department Note ---
Impression & Plan Hypoxia, Cough productive of yellow sputum ED Provider Note INFORMANT: Patient ED PROVIDER(S): Vamsi Gallagher MD CHIEF COMPLAINT: Shortness of breath PLAN: Disposition: Admitted Condition: Good Outpatient prescription management: none Referral: None MEDICAL DECISION MAKING: Patient presented because of shortness of breath. He was found to be hypoxic. He had a similar of event last week and had a big work-up in the ER. He was diagnosed with a bronchitis. He was treated with Zithromax. CT imaging at that time did not reveal any blood clot or acute pathology. The patient did well with nebulizers, Solu-Medrol, and supplemental oxygen. He was treated with IV doxycycline. His CBC showed a mild anemia and chemistry panel shows mild dehydration. His troponin and BNP were negative. Chest x-ray did not reveal any acute pathology. Due to the hypoxia the patient will need further management in the hospital. I discussed this with him and his . [facility] Triage Nursing notes reviewed and agree them. Vital Signs: reviewed and remarkable for hypoxia Differential diagnosis: Reactive airway disease, pneumonia, pneumothorax, COPD, CHF, infections, cardiac ischemia, pulmonary embolism, musculoskeletal, gastrointestinal, as well as other pathologies. Diagnostics interpreted by me: ECG: Twelve-lead ECG reveals an atrial paced rhythm at 64 bpm. PVCs present. No ST elevation. Cardiac Monitoring: Cardiac monitoring ordered by me: The patient was placed on continuous cardiac monitoring and observed. It revealed a paced rhythm at 61 bpm. No dysrhythmia. Imaging studies: Chest x-ray. Findings: A chest x-ray was performed and revealed no pneumothorax, effusion, infiltrate, pulmonary edema, free air under the diaphragm, or wide mediastinum. Impression: No acute disease. HPI: The patient is a 85 year old male who presents to the Emergency Room with complaints of SOB. This started today. EMS summoned and he was 80% on RA. Was in ER a week ago for hypoxia and cough. Treated for bronchitis. Seemed to do okay until today. The patient also notes the following associated symptoms, cough productive of yellow sputum, diaphoresis. The patient has been given a nebulizer for relieving factors. Current pain is rated as 0/10. Pt denies LOC, headache, fevers, chills, visual changes, neck pain, chest pain, nausea, vomiting, abdominal pain, back pain, melena, hematochezia, urinary symptoms, numbness, weakness, lymphadenopathy, rash, or other complaints. ROS: See above HPI for pertinent positives & negatives. A total of 10 systems reviewed and were otherwise negative. PAST MEDICAL HISTORY:See Below , afib PAST SURGICAL HISTORY:See Below,pacemaker FAMILY HISTORY:See Below SOCIAL HISTORY:See Below, HOME MEDICATIONS:See Below ALLERGIES:See Below VITALS:See Below PHYSICAL EXAMINATION: GENERAL: Awake, alert, mildly dyspneic-appearing, in no distress HENT: Normocephalic, atraumatic. Oropharynx unremarkable. EYES: Normal conjunctiva. Sclera non-icteric. NECK: Inspection normal. Non-tender. Supple. No nuchal rigidity. FROM. No masses. RESPIRATORY: Clear to auscultation. No wheezes. No rales. Increased respiratory effort. CARDIAC: Normal rate. Normal rhythm. No murmurs. No rubs. Extremities warm and well perfused. Pulses equal. No JVD. GI: Soft, non-distended. No tenderness to palpation. No rebound or guarding. No masses. RECTAL: Deferred. MUSCULOSKELETAL: Atraumatic. Chest examination reveals no tenderness. The back is symmetrical on inspection without obvious abnormality. There is no CVA tenderness to palpation. No joint edema. LOWER EXTREMITIES: Calves are equal size bilaterally and non-tender. No edema. No discoloration. NEURO: Normal sensorium. No sensory or motor deficits noted. SKIN: No rash or jaundice noted. 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 Family History Mother Coronary heart disease Social History Smoking Status: Never smoker Second Hand Exposure: No; Hx Alcohol Use: Yes Hx Substance Use: No Preferred Language: Czech Communication Ability: Effective Fireworks Maker Required: No Beliefs That Will Affect Care: None Current Living Situation: Spouse Feels Safe at Home: Yes Assistive Devices: Denture - Upper, Denture - Lower and Glasses Allergies Allergies Allergy/AdvReac Type Severity Reaction Status Date / Time cephalexin Allergy Severe Rash Unverified 12/26/20 20:26 lisinopril Allergy Unknown Rxn not Verified 12/26/20 20:26 stated niacin Allergy Unknown Reaction Verified 12/26/20 20:26 not stated Home Meds Home Medications Medication Instructions Recorded Confirmed amlodipine 5 mg PO QAM 01/21/19 12/26/20 atorvastatin [Lipitor] 20 mg PO Q2D 01/21/19 12/26/20 dorzolamide-timolol 1 drp OPB BID 01/21/19 12/26/20 glucosamine-chondroitin [Osteo 1 tab PO QAM 01/21/19 12/26/20 Bi-Flex] metoprolol tartrate 25 mg PO QAM 01/21/19 12/26/20 aspirin 81 mg PO QAM 12/17/20 12/26/20 vitamins A,C,A-[id number] 1 cap PO QAM 12/17/20 12/26/20 [PreserVision AREDS] Results & Data (ED) Vital Signs Vital Signs - 24 hr 12/26/20 19:07 12/26/20 19:14 12/26/20 19:19 Temperature Temperature Source Pulse Rate 68 Pulse Rate [Apical] Pulse Rate from SpO2 Sensor 63 Pulse Rhythm Pulse Strength Respiratory Rate 19 Respiratory Effort / Characteristics Non-Labored Spontaneous Respiratory Depth Normal Respiratory Pattern Regular Blood Pressure 181/91 H Blood Pressure Mean 121 Blood Pressure Position Pulse Oximetry 89 L 96 Oxygen Delivery Method Oxygen Flow Rate 0 Sepsis Recent Fever Within 48 Hours Sepsis New/Unexplained Change in Mental Status Sepsis Action Taken by Nursing Oxygen Flow Rate - Titration 2 Pulse Oximetry Post Tiitration 95 12/26/20 19:20 12/26/20 19:24 12/26/20 19:31 Temperature 36.7 C Temperature Source Oral Pulse Rate 71 68 Pulse Rate [Apical] Pulse Rate from SpO2 Sensor 59 L Pulse Rhythm Regular Pulse Strength Normal Respiratory Rate 22 16 Respiratory Effort / Characteristics Non-Labored Spontaneous Respiratory Depth Normal Respiratory Pattern Regular Blood Pressure 181/91 H 148/100 H Blood Pressure Mean 121 116 Blood Pressure Position Sitting Pulse Oximetry 89 L 95 96 Oxygen Delivery Method Room Air Room Air Oxygen Flow Rate Sepsis Recent Fever Within 48 Hours No Sepsis New/Unexplained Change in Mental Status No Sepsis Action Taken by Nursing No Action Required Oxygen Flow Rate - Titration Pulse Oximetry Post Tiitration 12/26/20 19:46 12/26/20 20:00 12/26/20 20:30 Temperature Temperature Source Pulse Rate 73 63 Pulse Rate [Apical] 70 Pulse Rate from SpO2 Sensor 60 64 Pulse Rhythm Pulse Strength Respiratory Rate 26 H 17 31 H Respiratory Effort / Characteristics Spontaneous Respiratory Depth Respiratory Pattern Blood Pressure 153/88 H 142/82 H Blood Pressure Mean 109 102 Blood Pressure Position Pulse Oximetry 94 99 95 Oxygen Delivery Method Nasal Cannula Oxygen Flow Rate 1 Sepsis Recent Fever Within 48 Hours Sepsis New/Unexplained Change in Mental Status Sepsis Action Taken by Nursing Oxygen Flow Rate - Titration Pulse Oximetry Post Tiitration 12/26/20 21:00 12/26/20 21:30 12/26/20 22:00 Temperature Temperature Source Pulse Rate 63 87 66 Pulse Rate [Apical] Pulse Rate from SpO2 Sensor 61 65 Pulse Rhythm Pulse Strength Respiratory Rate 22 18 19 Respiratory Effort / Characteristics Respiratory Depth Respiratory Pattern Blood Pressure 129/81 140/99 126/73 Blood Pressure Mean 97 112 90 Blood Pressure Position Pulse Oximetry 95 96 Oxygen Delivery Method Oxygen Flow Rate Sepsis Recent Fever Within 48 Hours Sepsis New/Unexplained Change in Mental Status Sepsis Action Taken by Nursing Oxygen Flow Rate - Titration Pulse Oximetry Post Tiitration 12/26/20 22:31 12/26/20 23:00 12/26/20 23:30 Temperature Temperature Source Pulse Rate 75 62 63 Pulse Rate [Apical] Pulse Rate from SpO2 Sensor 75 61 60 Pulse Rhythm Pulse Strength Respiratory Rate 17 16 25 H Respiratory Effort / Characteristics Respiratory Depth Respiratory Pattern Blood Pressure 121/105 H 131/63 109/58 L Blood Pressure Mean 110 85 75 Blood Pressure Position Pulse Oximetry 97 98 97 Oxygen Delivery Method Oxygen Flow Rate Sepsis Recent Fever Within 48 Hours Sepsis New/Unexplained Change in Mental Status Sepsis Action Taken by Nursing Oxygen Flow Rate - Titration Pulse Oximetry Post Tiitration 12/27/20 00:00 12/27/20 00:30 Temperature Temperature Source Pulse Rate 62 60 Pulse Rate [Apical] Pulse Rate from SpO2 Sensor 64 60 Pulse Rhythm Pulse Strength Respiratory Rate 22 21 Respiratory Effort / Characteristics Respiratory Depth Respiratory Pattern Blood Pressure 122/63 120/63 Blood Pressure Mean 82 82 Blood Pressure Position Pulse Oximetry 97 98 Oxygen Delivery Method Oxygen Flow Rate Sepsis Recent Fever Within 48 Hours Sepsis New/Unexplained Change in Mental Status Sepsis Action Taken by Nursing Oxygen Flow Rate - Titration Pulse Oximetry Post Tiitration Laboratory Data Result diagrams: 12/26/20 19:58 12/26/20 19:58 Lab Results 12/26/20 12/26/20 12/26/20 Range/Units 19:58 19:58 19:58 WBC 7.50 (4.8-10.8) K/uL RBC 3.23 L (4.7-6.1) M/uL Hgb 11.4 L (14.0-18.0) g/dL Hct 35.0 L (42-52) % MCV 108.4 H (80-100) fL MCH 35.3 H (25-34) pg MCHC 32.6 (32-36) g/dL RDW Std Deviation 81.4 H (36.4-46.3) fL RDW Coeff of [place] 20.6 H (11.5-14.5) % Plt Count 226 (130-400) K/uL MPV 11.7 H (7.4-10.4) fL Immature Gran % (Auto) 0.1 % Neut % (Auto) 69.2 % Lymph % (Auto) 15.5 % [place] % (Auto) 9.2 % Eos % (Auto) 5.9 % Baso % (Auto) 0.1 % Neut # (Auto) 5.19 (1.4-6.5) K/uL Lymph # (Auto) 1.16 L (1.2-3.4) K/uL [place] # (Auto) 0.69 H (0.11-0.59) K/uL Eos # (Auto) 0.44 (0-0.5) K/uL Baso # (Auto) 0.01 (0-0.2) K/uL Immature Gran # (Auto) 0.01 (0.00-0.02) K/uL Anisocytosis Present Tear Drop Cells 1+ Ovalocytes 1+ Sodium 140 (136-145) mmol/L Potassium 4.9 (3.5-5.1) mmol/L Chloride 103 (98-107) mmol/L Carbon Dioxide 35 H (21-32) mmol/L Anion Gap 2.0 L (3-11) BUN 15 (7-18) mg/dl Creatinine 0.69 (0.6-1.4) mg/dl Est Cr Clr Drug Dosing 75.9 ml/min Est GFR ( Amer) 99.6 ml/min Est GFR (Non-Af Amer) 86.0 ml/min BUN/Creatinine Ratio 21.4 H (10-20) Glucose 97 (70-99) mg/dl Calcium 8.3 L (8.5-10.1) mg/dl Magnesium 2.3 (1.8-2.4) mg/dl Total Bilirubin 0.8 (0.2-1) mg/dl AST 18 (15-37) U/L ALT 15 (12-78) U/L Alkaline Phosphatase 120 H (45-117) U/L Troponin I 0.017 (0-0.045) ng/ml NT-Pro-B Natriuret Pep 928 (0-1800) pg/ml Total Protein 6.7 (6.4-8.2) gm/dl Albumin 3.4 (3.4-5.0) gm/dl Globulin 3.3 (2.5-4.0) gm/dl Albumin/Globulin Ratio 1.0 (0.9-2) Urine Color Yellow Urine Appearance Clear (Clear) Urine pH 6.0 (4.5-7.5) Ur Specific [place] 1.013 (1.000-1.030) Urine Protein Negative (Negative) Urine Glucose (UA) Negative (Negative) Urine Ketones Negative (Negative) Urine Blood Negative (Negative) Urine Nitrite Negative (Negative) Urine Bilirubin Negative (Negative) Urine Urobilinogen Negative (Negative) Ur Leukocyte Esterase Negative (Negative) COVID-19 Eval Order SARS-CoV-2 (PCR) (Negative) 12/26/20 12/26/20 Range/Units 19:58 19:58 WBC (4.8-10.8) K/uL RBC (4.7-6.1) M/uL Hgb (14.0-18.0) g/dL Hct (42-52) % MCV (80-100) fL MCH (25-34) pg MCHC (32-36) g/dL RDW Std Deviation (36.4-46.3) fL RDW Coeff of [place] (11.5-14.5) % Plt Count (130-400) K/uL MPV (7.4-10.4) fL Immature Gran % (Auto) % Neut % (Auto) % Lymph % (Auto) % [place] % (Auto) % Eos % (Auto) % Baso % (Auto) % Neut # (Auto) (1.4-6.5) K/uL Lymph # (Auto) (1.2-3.4) K/uL [place] # (Auto) (0.11-0.59) K/uL Eos # (Auto) (0-0.5) K/uL Baso # (Auto) (0-0.2) K/uL Immature Gran # (Auto) (0.00-0.02) K/uL Anisocytosis Tear Drop Cells Ovalocytes Sodium (136-145) mmol/L Potassium (3.5-5.1) mmol/L Chloride (98-107) mmol/L Carbon Dioxide (21-32) mmol/L Anion Gap (3-11) BUN (7-18) mg/dl Creatinine (0.6-1.4) mg/dl Est Cr Clr Drug Dosing ml/min Est GFR ( Amer) ml/min Est GFR (Non-Af Amer) ml/min BUN/Creatinine Ratio (10-20) Glucose (70-99) mg/dl Calcium (8.5-10.1) mg/dl Magnesium (1.8-2.4) mg/dl Total Bilirubin (0.2-1) mg/dl AST (15-37) U/L ALT (12-78) U/L Alkaline Phosphatase (45-117) U/L Troponin I (0-0.045) ng/ml NT-Pro-B Natriuret Pep (0-1800) pg/ml Total Protein (6.4-8.2) gm/dl Albumin (3.4-5.0) gm/dl Globulin (2.5-4.0) gm/dl Albumin/Globulin Ratio (0.9-2) Urine Color Urine Appearance (Clear) Urine pH (4.5-7.5) Ur Specific [place] (1.000-1.030) Urine Protein (Negative) Urine Glucose (UA) (Negative) Urine Ketones (Negative) Urine Blood (Negative) Urine Nitrite (Negative) Urine Bilirubin (Negative) Urine Urobilinogen (Negative) Ur Leukocyte Esterase (Negative) COVID-19 Eval Order Covid19 at [facility] SARS-CoV-2 (PCR) NEGATIVE (Negative) Administered Medications Discontinued Medications Albuterol (Albut/Ipratrop 3mg/0.5mg Neb 3 Ml Vial) 3 ml INH NOW STA Stop: 12/26/20 19:25 Last Admin: 12/26/20 19:46 Dose: 3 ml Documented by: [id number] Doxycycline Hyclate 100 mg/ (Dextrose) 110 mls @ 50 mls/hr IV NOW STA Stop: 12/26/20 23:48 Last Infusion: 12/27/20 01:39 Dose: 0 mls/hr Documented by: [id number] Admin: 12/26/20 23:04 Dose: 50 mls/hr Documented by: [id number] Methylprednisolone (Methylprednisolone 125 Mg/2 Ml Vial) 125 mg IV NOW STA Stop: 12/26/20 19:25 Last Admin: 12/26/20 19:55 Dose: 125 mg Documented by: [id number] Imaging Data Radiologist's Impression: Chest X-Ray 12/26/20 19:24 XR chest 1V portable HISTORY: Dyspnea COMPARISON: Chest 12/17/2020. FINDINGS: Scattered calcified pleural plaques are again noted. No pneumothorax. No pleural effusions. There is left-sided dual-chamber pacemaker. The heart remains top normal in size. There are poststernotomy changes. No new focal lung consolidations to suggest pneumonia. No evidence for pulmonary edema. Old, healed right-sided clavicle fracture is again noted. IMPRESSION: No significant change compared to the prior study. No acute process. ACT 112: Negative or not required by law. Electronically signed by: Austen Herrera M.D. 12/26/2020 7:55 PM Discharge Plan Visit Data Chief Complaint: Respiratory Problems Stated Complaint: breathing difficulty ED Provider: Vamsi Gallagher Discharge Problem: Hypoxia, Cough productive of yellow sputum Patient Disposition: Admitted As Inpatient Discharge Instructions Interventions: ED Discharge Assessment Last Done: 12/27/20 01:03
--- NOTE | 2020-12-26 19:56 | XRay Report ---
XR chest 1V portable HISTORY: Dyspnea COMPARISON: Chest 12/17/2020. FINDINGS: Scattered calcified pleural plaques are again noted. No pneumothorax. No pleural effusions. There is left-sided dual-chamber pacemaker. The heart remains top normal in size. There are postster notomy changes. No new focal lung consolidations to suggest pneumonia. No evidence for pulmonary aneesh a. Old, healed right-sided clavicle fracture is again noted. IMPRESSION: No significant change compared to the prior study. No acute process. ACT 112: Negative or not required by law. Electronically signed by: Austen Herrera M.D. 12/26/2020 7:55 PM
[2020-12-26 20:06] LABS: Appearance Urine Clear (Clear); Bilirubin Urine Negative (Negative); Blood Urine Negative (Negative); Color Urine Yellow; Glucose Urine UA Negative (Negative); Ketones Urine Negative (Negative); Leukocyte Esterase Urine Negative (Negative); Nitrite Urine Negative (Negative); Protein Urine Negative (Negative); Specific Gravity Urine 1.013 (1.000-1.030); Urobilinogen Urine Negative (Negative)
[2020-12-26 20:07] LABS: Basophils # (auto) 0.01 K/uL (0-0.2); Basophils % (auto) 0.1 %; Eosinophils # (auto) 0.44 K/uL (0-0.5); Eosinophils % (auto) 5.9 %; Hemoglobin 11.4 g/dL (14.0-18.0); Immature Granulocytes # (auto) 0.01 K/uL (0.00-0.02); Immature Granulocytes % (auto) 0.1 %; Lymphocytes # (auto) 1.16 K/uL (1.2-3.4); Lymphocytes % (auto) 15.5 %; Mean Corpuscular Hemoglobin 35.3 pg (25-34); Mean Corpuscular Hgb Conc 32.6 g/dL (32-36); Mean Corpuscular Volume 108.4 fL (80-100); Mean Platelet Volume 11.7 fL (7.4-10.4); Monocytes # (auto) 0.69 K/uL (0.11-0.59); Monocytes % (auto) 9.2 %; Neutrophils # (auto) 5.19 K/uL (1.4-6.5); Neutrophils % (auto) 69.2 %; Platelet Count 226 K/uL (130-400); RDW Coefficient of Variation 20.6 % (11.5-14.5); RDW Standard Deviation 81.4 fL (36.4-46.3); Red Blood Count 3.23 M/uL (4.7-6.1)
[2020-12-26 20:24] LABS: Albumin Level 3.4 gm/dl (3.4-5.0); BUN Creatinine Ratio 21.4 (10-20); Calcium 8.3 mg/dl (8.5-10.1); Creatinine Clr Calc Pharmacy 75.9 ml/min; Est GFR (African American) 99.6 ml/min; Magnesium 2.3 mg/dl (1.8-2.4); Potassium 4.9 mmol/L (3.5-5.1)
[2020-12-26 20:29] LABS: Anisocytosis Present; Bilirubin,Total 0.8 mg/dl (0.2-1); Globulin 3.3 gm/dl (2.5-4.0); Ovalocytes 1+; Tear Drop Cells 1+; Total Protein 6.7 gm/dl (6.4-8.2); Troponin I 0.017 ng/ml (0-0.045)
[2020-12-26] MEDS ORDERED: DOXYCYCLINE HYCLATE 100 MG in DEXTROSE 5% 100 ML IV STA (21:37)
[2020-12-27] MEDS ORDERED: AMPICILLIN/SULBACTAM SOD 3,000 MG in 0.9 % SODIUM CHLORIDE 100 ML IV STA (00:27)
--- NOTE | 2020-12-27 00:34 | History & Physical Report ---
Date of Service December 27, 2020 Assessment & Plan (1) Acute hypoxemic respiratory failure: Possible aspiration pneumonitis secondary to possible esophageal dysfunction Recent antibiotic course for bronchitis No sepsis for now SSS status post PPM, paced rhythm CAD status post CABG hypertension, stable BP hyperlipidemia, on statin Rx myelodysplastic syndrome, stable hemoglobin prostate cancer status post surgery Medical telemetry Supplemental O2 Unasyn followed by Augmentin course Nebs RTC Swallow eval Aspiration precautions for now May need Pulmonary eval for recurrent cough, abnormal CT if swallow eval negative for significant aspiration risk. DVT prophylaxis per Lovenox subcu DNR Text document was generated using [employer] voice recognition software. It may contain grammatical or spelling errors. Kindly contact undersigned for clarification of any documentation item in question. History of Present Illness Chief Complaint: Low oxygen, persistent cough Primary Care Provider: Elizabeth Jose MD History obtained from patient and records. Medical history significant for SSS status post PPM, CAD status post CABG, PVD, hypertension, hyperlipidemia, myelodysplastic syndrome, prostate cancer status post surgery, chronic anemia (baseline hemoglobin of 11). Last confinement June 2019 for complicated diverticulitis. 2 weeks ago, patient noted junky cough symptoms with shortness of breath, feels like this phlegm getting stuck in his throat. Patient not sure about aspiration. Patient feeling weak for a month. O2 sats 80s at home. Patient brought to the ER for evaluation. No pulmonary embolism on CT chest. Tracheal secretions noted. Patient discharged on azithromycin course. Patient feeling a little better but still having trouble clearing mucus on outpatient PCP visit a few days ago. Today patient noted worsening of cough symptoms productive of junky sputum without chest pain. Worsening shortness of breath. No fever, no chills. O2 sats noted to be 80s on room air upon arrival of EMS. At the ER, patient received Solu-Medrol and neb treatment. Patient currently feeling better. Medical History as above Surgical History : PPM, partial colectomy Family History : Heart disease Personal/Social history : Non-smoker, no EtOH intake, lives with Allergies Allergy/AdvReac Type Severity Reaction Status Date / Time cephalexin Allergy Severe Rash Unverified 12/26/20 20:26 lisinopril Allergy Unknown Rxn not Verified 12/26/20 20:26 stated niacin Allergy Unknown Reaction Verified 12/26/20 20:26 not stated Home Medications Medication Instructions Recorded Confirmed Type amlodipine 5 mg PO QAM 01/21/19 12/26/20 History atorvastatin [Lipitor] 20 mg PO Q2D 01/21/19 12/26/20 History dorzolamide-timolol 1 drp OPB BID 01/21/19 12/26/20 History glucosamine-chondroitin [Osteo 1 tab PO QAM 01/21/19 12/26/20 History Bi-Flex] metoprolol tartrate 25 mg PO QAM 01/21/19 12/26/20 History aspirin 81 mg PO QAM 12/17/20 12/26/20 History vitamins A,C,E-iidp-ivxeqm 1 cap PO QAM 12/17/20 12/26/20 History [PreserVision AREDS] Past Med/Surg History Medical History (Updated 12/27/20 @ 08:17 by Ronn Arreguin MD) CAD (coronary artery disease) History of nephrolithiasis History of prostate cancer HTN (hypertension) Hyperlipidemia Macular degeneration MDS (myelodysplastic syndrome) Paroxysmal A-fib Tachy-ruben syndrome Surgical History History of prostatectomy 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, battery recently replaced 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 Family History Mother Coronary heart disease Social History Smoking Status: Never smoker Second Hand Exposure: Yes (not currently); Do You Dip or Chew Tobacco: No; Hx Alcohol Use: No Hx Substance Use: No Preferred Language: Northern Irish Communication Ability: Effective Fire Suppression Captain Required: No Beliefs That Will Affect Care: None Current Living Situation: Spouse Other Information That Helps Us Care for You: No Feels Safe at Home: Yes Safety Concerns: Feels Safe At This Time Assistive Devices: Walker Review of Systems Review of Systems: As per HPI, all 10 systems reviewed, all other ROS negative Physical Exam Physical Exam: GENERAL: Comfortable, slightly hard of hearing, frail, no respiratory distress SKIN: Pallor, warm HEENT: Alopecia, pale palpebral conjunctivae, no ptosis, dry buccal mucosa, nasal cannula in place NECK : Supple, no tenderness CHEST : Decreased breath sounds, no tenderness HEART : RRR, systolic murmur ABDOMEN: no distention, nontender EXTREMITIES : No LE swelling/tenderness, no other conspicuous deformities noted NEUROLOGIC : Coherent, no facial asymmetry, slightly hard of hearing, no other gross focality Results & Data Results & Data ([facility]) Vital Signs (Past 12 Hours) Vital Signs Temp Pulse Pulse Resp BP Pulse Ox 12/27/20 00:00 62 22 122/63 97 12/26/20 23:30 63 25 H 109/58 L 97 12/26/20 23:00 62 16 131/63 98 12/26/20 22:31 75 17 121/105 H 97 12/26/20 22:00 66 19 126/73 96 12/26/20 21:30 87 18 140/99 12/26/20 21:00 63 22 129/81 95 12/26/20 20:30 63 31 H 142/82 H 95 12/26/20 20:00 73 17 153/88 H 99 12/26/20 19:46 70 26 H 94 12/26/20 19:31 68 16 148/100 H 96 12/26/20 19:24 95 12/26/20 19:20 36.7 C 71 22 181/91 H 89 L 12/26/20 19:14 68 19 181/91 H 96 12/26/20 19:07 89 L Laboratory Results Laboratory Results WBC 7.50 K/uL (4.8-10.8) 12/26/20 19:58 RBC 3.23 M/uL (4.7-6.1) L 12/26/20 19:58 Hgb 11.4 g/dL (14.0-18.0) L 12/26/20 19:58 Hct 35.0 % (42-52) L 12/26/20 19:58 MCV 108.4 fL (80-100) H 12/26/20 19:58 MCH 35.3 pg (25-34) H 12/26/20 19:58 MCHC 32.6 g/dL (32-36) 12/26/20 19:58 RDW Std Deviation 81.4 fL (36.4-46.3) H 12/26/20 19:58 RDW Coeff of [place] 20.6 % (11.5-14.5) H 12/26/20 19:58 Plt Count 226 K/uL (130-400) 12/26/20 19:58 MPV 11.7 fL (7.4-10.4) H 12/26/20 19:58 Immature Gran % (Auto) 0.1 % 12/26/20 19:58 Neut % (Auto) 69.2 % 12/26/20 19:58 Lymph % (Auto) 15.5 % 12/26/20 19:58 [place] % (Auto) 9.2 % 12/26/20 19:58 Eos % (Auto) 5.9 % 12/26/20 19:58 Baso % (Auto) 0.1 % 12/26/20 19:58 Neut # (Auto) 5.19 K/uL (1.4-6.5) 12/26/20 19:58 Lymph # (Auto) 1.16 K/uL (1.2-3.4) L 12/26/20 19:58 [place] # (Auto) 0.69 K/uL (0.11-0.59) H 12/26/20 19:58 Eos # (Auto) 0.44 K/uL (0-0.5) 12/26/20 19:58 Baso # (Auto) 0.01 K/uL (0-0.2) 12/26/20 19:58 Immature Gran # (Auto) 0.01 K/uL (0.00-0.02) 12/26/20 19:58 Anisocytosis Present 12/26/20 19:58 Tear Drop Cells 1+ 12/26/20 19:58 Ovalocytes 1+ 12/26/20 19:58 Sodium 140 mmol/L (136-145) 12/26/20 19:58 Potassium 4.9 mmol/L (3.5-5.1) 12/26/20 19:58 Chloride 103 mmol/L (98-107) 12/26/20 19:58 Carbon Dioxide 35 mmol/L (21-32) H 12/26/20 19:58 Anion Gap 2.0 (3-11) L 12/26/20 19:58 BUN 15 mg/dl (7-18) 12/26/20 19:58 Creatinine 0.69 mg/dl (0.6-1.4) 12/26/20 19:58 Est Cr Clr Drug Dosing 75.9 ml/min 12/26/20 19:58 Est GFR ( Amer) 99.6 ml/min 12/26/20 19:58 Est GFR (Non-Af Amer) 86.0 ml/min 12/26/20 19:58 BUN/Creatinine Ratio 21.4 (10-20) H 12/26/20 19:58 Glucose 97 mg/dl (70-99) 12/26/20 19:58 Calcium 8.3 mg/dl (8.5-10.1) L 12/26/20 19:58 Magnesium 2.3 mg/dl (1.8-2.4) 12/26/20 19:58 Total Bilirubin 0.8 mg/dl (0.2-1) 12/26/20 19:58 AST 18 U/L (15-37) 12/26/20 19:58 ALT 15 U/L (12-78) 12/26/20 19:58 Alkaline Phosphatase 120 U/L (45-117) H 12/26/20 19:58 Troponin I 0.017 ng/ml (0-0.045) 12/26/20 19:58 NT-Pro-B Natriuret Pep 928 pg/ml (0-1800) 12/26/20 19:58 Total Protein 6.7 gm/dl (6.4-8.2) 12/26/20 19:58 Albumin 3.4 gm/dl (3.4-5.0) 12/26/20 19:58 Globulin 3.3 gm/dl (2.5-4.0) 12/26/20 19:58 Albumin/Globulin Ratio 1.0 (0.9-2) 12/26/20 19:58 Urine Color Yellow 12/26/20 19:58 Urine Appearance Clear (Clear) 12/26/20 19:58 Urine pH 6.0 (4.5-7.5) 12/26/20 19:58 Ur Specific [place] 1.013 (1.000-1.030) 12/26/20 19:58 Urine Protein Negative (Negative) 12/26/20 19:58 Urine Glucose (UA) Negative (Negative) 12/26/20 19:58 Urine Ketones Negative (Negative) 12/26/20 19:58 Urine Blood Negative (Negative) 12/26/20 19:58 Urine Nitrite Negative (Negative) 12/26/20 19:58 Urine Bilirubin Negative (Negative) 12/26/20 19:58 Urine Urobilinogen Negative (Negative) 12/26/20 19:58 Ur Leukocyte Esterase Negative (Negative) 12/26/20 19:58 COVID-19 Eval Order Covid19 at [facility] 12/26/20 19:58 SARS-CoV-2 (PCR) NEGATIVE (Negative) 12/26/20 19:58 Impressions Chest X-Ray 12/26/20 19:24 XR chest 1V portable HISTORY: Dyspnea COMPARISON: Chest 12/17/2020. FINDINGS: Scattered calcified pleural plaques are again noted. No pneumothorax. No pleural effusions. There is left-sided dual-chamber pacemaker. The heart remains top normal in size. There are poststernotomy changes. No new focal lung consolidations to suggest pneumonia. No evidence for pulmonary edema. Old, healed right-sided clavicle fracture is again noted. IMPRESSION: No significant change compared to the prior study. No acute process. ACT 112: Negative or not required by law. Electronically signed by: Austen Herrera M.D. 12/26/2020 7:[address] chest initial read: No acute chest finding. PPM, status post CABG. Ascending aorta 4 cm. Consider pulmonary artery hypertension. Mediastinal and hilar lymph nodes measuring up to 1.5 cm. Bilateral anterior and posterior calcified pleural plaques. Right upper lobe peripheral lateral calcified granuloma. Mild bilateral lower lung bronchiectasis with peribronchial thickening. Right clavicle fracture. EKG as per my interpretation: Rate 85, paced rhythm
[2020-12-27] MEDS ORDERED: ACETAMINOPHEN 325 MG TAB PO PRN (01:37)
[2020-12-27] MEDS ORDERED: SODIUM CHLORIDE 0.9% 1000ML 1,000 ML IV ONE (01:37)
[2020-12-27] MEDS ORDERED: Augmentin: PHARMACY CONSULT IN PROGRESS PRN (02:11)
[2020-12-27] MEDS: ALBUT/IPRATROP 3MG/0.5MG NEB 3 ML VIAL NEB SCH ×4 (07:51→19:31)
--- NOTE | 2020-12-27 07:53 | CT Scan Report ---
CT chest diagnostic wo con CT DOSE: 241.31 mGy.cm CLINICAL HISTORY: 85 years-old Male with persistent cough. Chronic cough TECHNIQUE: Multiaxial CT images of the chest were performed without contrast. A dose lowering techni que was utilized adhering to the principles of ALARA. COMPARISON: Chest radiograph 12/26/2020, CTA chest 12/17/2020 FINDINGS: Unremarkable thyroid. Scattered calcified mediastinal and hilar lymph nodes. Left paratrach eal lymph node measuring 8 mm on image 118 of series 4 has decreased in size from comparison where pr eviously measured 12 mm. No new adenopathy identified. Prior median sternotomy and CABG with extensiv e [place] coronary artery calcifications. Left subclavian pacer. Unchanged dilation of the ascending t horacic aorta, 4.2 x 4.2 cm. Unchanged mild dilation of the pulmonary artery measuring 2.9 cm. Bilateral calcified pleural plaques. No pneumothorax. Tracheobronchial secretions with bibasilar muco us plugging and bibasilar predominant bronchial wall thickening. No pleural effusion or overt pulmona ry edema. Mild subsegmental tree-in-bud nodules of the basal right lower lobe. Scattered calcified gr anulomata of the lungs. There are no suspicious pulmonary nodules or masses identified. Linear 5 mm p erifissural nodule adjacent to the superior segment of the left lower lobe on image 121 is likely melyssa ign and is unchanged. No acute process of the imaged upper abdomen. 1.6 cm left hepatic lobe cyst. Unremarkable soft tissue s. Degenerative changes of the spine and shoulders. Healed chronic right clavicular fracture. IMPRESSION: 1. Tracheobronchial secretions with mild bibasilar mucous plugging and bronchial wall thickening. 2. Subsegmental tree-in-bud nodules of the basal right lower lobe are suggestive of an infectious or inflammatory bronchiolitis. 3. No lobar airspace consolidation. 4. Prior granulomatous disease. 5. Calcified bilateral pleural plaques redemonstrated, suggestive of asbestos-related pleural disease . 6. Additional findings as above. ACT 112: Negative or not required by law. Electronically signed by: Albert Gandara M.D. 12/27/2020 7:51 AM
[2020-12-27] MEDS ORDERED: ATORVASTATIN 20 MG TAB PO SCH (09:00)
[2020-12-27] MEDS: METOPROLOL SUCC 25MG EXT REL TAB PO SCH (09:30)
[2020-12-27] MEDS: AMOXICILLIN/CLAVULANATE 875 MG TAB PO SCH ×2 (09:30→17:24)
[2020-12-27] MEDS: ASPIRIN 81 MG ECTAB PO SCH (09:30)
[2020-12-27] MEDS: ENOXAPARIN INJ 30 MG/0.3 ML SYR SQ SCH (09:30)
[2020-12-27] MEDS: DORZOLAMIDE/TIMOLOL 22.3/6.8MG/ML 10 ML BTL OPB SCH ×2 (09:31→21:34)
[2020-12-27] MEDS: amLODIPine BESYLATE 5 MG TAB PO SCH (09:31)
--- NOTE | 2020-12-27 10:28 | Hospitalist Progress Note ---
Date of Service December 27, 2020 Assessment & Plan (1) Acute hypoxemic respiratory failure: Possible aspiration pneumonitis Recent antibiotic course for bronchitis No sepsis for now SSS status post PPM, paced rhythm CAD status post CABG hypertension, stable BP hyperlipidemia, on statin Rx myelodysplastic syndrome, stable hemoglobin prostate cancer status post surgery Medical telemetry Supplemental O2 Unasyn followed by Augmentin course Nebs RTC Swallow eval Aspiration precautions for now DVT prophylaxis per Lovenox subcu DNR Labs Checked Feels a lot better, Now off O2 ROS-No Headache, No Visual Changes, No Nausea, No Vomiting, No Fever, No Chills, No Neck Pain or Stiffness, No Chest Pain, No Palpitations, No SOB, No MOSHER, No Cough, No Sputum, No Wheezing, No Abdominal Pain, No Diarrhea, No Hematemesis, No Hemoptysis, No Unexpected Weight Loss, No Flank pain, No Melena, No Hematochezia, No Frequency, No Urgency, No Burning, No Hematuria, No Rashes, No Diaphoresis. Appetite is Normal Physical Exam Gen-AAO x 3, NAD, Afebrile Head-NCAT, EOMI, PERRLA, Anicteric Sclera, No Posterior Pharyngeal Erythema Neck-Supple, No JVD, No Thyromegaly, No Masses, No LAD, No Bruits Lungs-Clear to Auscultation Bilaterally, No Rales, No Rhonchi, No Wheezing, No Crepitus Chest-No S4, +S1, +S2, No S3, No Murmurs, No Rubs, No Gallops, No Ectopy Abdomen-Soft, Bowel Sounds Present, Non Tender, Non Distended, No Hepatomegaly, No Splenomegaly, No Palpable Masses, No Rebound, No Rigidity, No Guarding Musculoskeletal-Full Range of Motion Bilaterally, No CVAT Extremities-No Cyanosis, No Clubbing, No Edema Nuero-Cranial Nerves II-XII grossly intact, Motor WNL, DTRs WNL, Strength WNL, Non Focal Psych-Normal Mood Admission and Anticipated Discharge Date Admission Date: December 27, 2020 Results & Data Results & Data ([facility]) Vital Signs (Past 12 Hours) Vital Signs Temp Pulse Pulse Resp BP BP Pulse Ox 12/27/20 07:52 71 16 95 12/27/20 06:47 36.4 C L 64 18 107/61 94 12/27/20 03:23 36.6 C 60 18 118/62 90 12/27/20 01:30 36.6 C 86 74 18 127/73 90 12/27/20 01:01 61 16 110/60 93 12/27/20 00:30 60 21 120/63 98 12/27/20 00:00 62 22 122/63 97 12/26/20 23:30 63 25 H 109/58 L 97 12/26/20 23:00 62 16 131/63 98 12/26/20 22:31 75 17 121/105 H 97 Pulse Ox 12/27/20 07:52 12/27/20 06:47 12/27/20 03:23 12/27/20 01:30 90 12/27/20 01:01 12/27/20 00:30 12/27/20 00:00 12/26/20 23:30 12/26/20 23:00 12/26/20 22:31
--- NOTE | 2020-12-27 14:13 | Electrocardiogram Report ---
Test Reason : Blood Pressure : / mmHG Vent. Rate : 064 BPM Atrial Rate : 064 BPM P-R Int : 166 ms QRS Dur : 092 ms QT Int : 420 ms P-R-T Axes : 020 044 058 degrees QTc Int : 433 ms Atrial-paced rhythm with occasional Premature ventricular complexes Abnormal ECG When compared with ECG of 17-DEC-2020 08:25, Electronic atrial pacemaker has replaced Sinus rhythm Confirmed by Landen Iglesias ([id number]) on 12/27/2020 2:12:46 PM Referred By: REFERRED SELF Confirmed By:Landen Iglesias
[2020-12-28] MEDS: ALBUT/IPRATROP 3MG/0.5MG NEB 3 ML VIAL NEB SCH ×3 (07:26→15:16)
[2020-12-28] MEDS: ASPIRIN 81 MG ECTAB PO SCH (07:29)
[2020-12-28] MEDS: amLODIPine BESYLATE 5 MG TAB PO SCH ×2 (07:29→08:34)
[2020-12-28] MEDS: DORZOLAMIDE/TIMOLOL 22.3/6.8MG/ML 10 ML BTL OPB SCH (07:29)
[2020-12-28] MEDS: METOPROLOL SUCC 25MG EXT REL TAB PO SCH ×2 (07:29→08:34)
[2020-12-28] MEDS: AMOXICILLIN/CLAVULANATE 875 MG TAB PO SCH ×2 (07:30→17:59)
[2020-12-28] MEDS: ENOXAPARIN INJ 30 MG/0.3 ML SYR SQ SCH (07:30)
[2020-12-28 07:39] LABS: Hematocrit (blood only) 34.3 % (42-52); Hemoglobin 10.8 g/dL (14.0-18.0); Mean Corpuscular Hemoglobin 34.1 pg (25-34); Mean Corpuscular Hgb Conc 31.5 g/dL (32-36); Mean Corpuscular Volume 108.2 fL (80-100); Platelet Count 201 K/uL (130-400); RDW Coefficient of Variation 21.5 % (11.5-14.5); RDW Standard Deviation 82.6 fL (36.4-46.3); Red Blood Count 3.17 M/uL (4.7-6.1); White Blood Count 5.38 K/uL (4.8-10.8)
[2020-12-28 08:36] LABS: BUN Creatinine Ratio 29.8 (10-20); Calcium 8.7 mg/dl (8.5-10.1); Creatinine Clr Calc Pharmacy 62.5 ml/min; Est GFR (African American) 93.3 ml/min; Est GFR (Non-African American) 80.5 ml/min
--- NOTE | 2020-12-28 09:23 | Hospitalist Progress Note ---
Date of Service December 28, 2020 Assessment & Plan (1) Acute hypoxemic respiratory failure: Possible aspiration pneumonitis secondary to possible esophageal dysfunction- Ruled out Recent antibiotic course for bronchitis No sepsis for now SSS status post PPM, paced rhythm CAD status post CABG hypertension, stable BP hyperlipidemia, on statin Rx myelodysplastic syndrome, stable hemoglobin prostate cancer status post surgery Medical telemetry Supplemental O2 Unasyn followed by Augmentin course Nebs RTC Flutter Valve Spirometry Respiratory PT Swallow eval normal Aspiration precautions for now DVT prophylaxis per Lovenox subcu DNR Labs Checked ROS-No Headache, No Visual Changes, No Nausea, No Vomiting, No Fever, No Chills, No Neck Pain or Stiffness, No Chest Pain, No Palpitations, No SOB, No MOSHER, No Cough, No Sputum, No Wheezing, No Abdominal Pain, No Diarrhea, No Hematemesis, No Hemoptysis, No Unexpected Weight Loss, No Flank pain, No Melena, No Hematochezia, No Frequency, No Urgency, No Burning, No Hematuria, No Rashes, No Diaphoresis. Appetite is Normal Physical Exam Gen-AAO x 3, NAD, Afebrile Head-NCAT, EOMI, PERRLA, Anicteric Sclera, No Posterior Pharyngeal Erythema Neck-Supple, No JVD, No Thyromegaly, No Masses, No LAD, No Bruits Lungs-Clear to Auscultation Bilaterally, No Rales, No Rhonchi, No Wheezing, No Crepitus Chest-No S4, +S1, +S2, No S3, No Murmurs, No Rubs, No Gallops, No Ectopy Abdomen-Soft, Bowel Sounds Present, Non Tender, Non Distended, No Hepatomegaly, No Splenomegaly, No Palpable Masses, No Rebound, No Rigidity, No Guarding Musculoskeletal-Full Range of Motion Bilaterally, No CVAT Extremities-No Cyanosis, No Clubbing, No Edema Nuero-Cranial Nerves II-XII grossly intact, Motor WNL, DTRs WNL, Strength WNL, Non Focal Psych-Normal Mood Admission and Anticipated Discharge Date Admission Date: December 27, 2020 Results & Data Results & Data ([facility]) Vital Signs (Past 12 Hours) Vital Signs Temp Pulse Pulse Resp BP Pulse Ox 12/28/20 07:27 60 16 94 12/28/20 06:56 36.5 C 65 18 144/70 H 93 12/28/20 03:38 60 12/28/20 02:57 36.4 C L 67 18 119/64 94 12/27/20 23:16 36.7 C 61 18 115/67 93
[2020-12-28 10:21] LABS: Potassium 4.1 mmol/L (3.5-5.1)
--- NOTE | 2020-12-28 16:23 | Discharge Summary ---
Date of Service December 28, 2020 Admission HPI Per Admitting Provider History obtained from patient and records. Medical history significant for SSS status post PPM, CAD status post CABG, PVD, hypertension, hyperlipidemia, myelodysplastic syndrome, prostate cancer status post surgery, chronic anemia (baseline hemoglobin of 11). Last confinement June 2019 for complicated diverticulitis. 2 weeks ago, patient noted junky cough symptoms with shortness of breath, feels like this phlegm getting stuck in his throat. Patient not sure about aspiration. Patient feeling weak for a month. O2 sats 80s at home. Patient brought to the ER for evaluation. No pulmonary embolism on CT chest. Tracheal secretions noted. Patient discharged on azithromycin course. Patient feeling a little better but still having trouble clearing mucus on outpatient PCP visit a few days ago. Today patient noted worsening of cough symptoms productive of junky sputum without chest pain. Worsening shortness of breath. No fever, no chills. O2 sats noted to be 80s on room air upon arrival of EMS. At the ER, patient received Solu-Medrol and neb treatment. Patient currently feeling better. Medical History as above Surgical History : PPM, partial colectomy Family History : Heart disease Personal/Social history : Non-smoker, no EtOH intake, lives with Admission Exam Per Admitting Provider GENERAL: Comfortable, slightly hard of hearing, frail, no respiratory distress SKIN: Pallor, warm HEENT: Alopecia, pale palpebral conjunctivae, no ptosis, dry buccal mucosa, nasal cannula in place NECK : Supple, no tenderness CHEST : Decreased breath sounds, no tenderness HEART : RRR, systolic murmur ABDOMEN: no distention, nontender EXTREMITIES : No LE swelling/tenderness, no other conspicuous deformities noted NEUROLOGIC : Coherent, no facial asymmetry, slightly hard of hearing, no other gross focality Principal Diagnosis Tracheobronchitis Acute hypoxemic respiratory failure: SSS status post PPM CAD status post CABG hypertension hyperlipidemia myelodysplastic syndrome prostate cancer history Discharge Exam See below Discharge Data Allergies Allergy/AdvReac Type Severity Reaction Status Date / Time cephalexin Allergy Severe Rash Unverified 12/26/20 20:26 lisinopril Allergy Unknown Rxn not Verified 12/26/20 20:26 stated niacin Allergy Unknown Reaction Verified 12/26/20 20:26 not stated Consultations 12/26/20 21:37 ED Decision to Admit Stat Ordered Studies 12/27/20 00:27 CT chest diagnostic wo con Urgent Current Diagnoses Acute respiratory failure with hypoxia (12/27/20) Allergies cephalexin Allergy (Severe, Unverified 12/26/20 20:26) Rash lisinopril Allergy (Unknown, Verified 12/26/20 20:26) Rxn not stated niacin Allergy (Unknown, Verified 12/26/20 20:26) Reaction not stated Height/Weight/Isolation Height 5 ft 11 in Weight 67.5 kg Chemistry 12/26/20 12/28/20 19:58 06:59 Sodium 140 141 Potassium 4.9 4.1 D Chloride 103 105 Carbon Dioxide 35 H 34 H Anion Gap 2.0 L 1.0 L BUN 15 24 H D Creatinine 0.69 0.81 Glucose 97 77 Urinalysis 12/26/20 19:58 Urine Color Yellow Urine Appearance Clear Urine pH 6.0 Ur Specific [place] 1.013 Urine Protein Negative Urine Glucose (UA) Negative Urine Ketones Negative Urine Blood Negative Urine Nitrite Negative Urine Bilirubin Negative Microbiology 12/26/20 20:22 Blood Aerobic Blood Culture - Preliminary No growth in Aerobic bottle after 24 hours. 12/26/20 20:22 Blood Anaerobic Blood Culture - Preliminary No growth in Anaerobic bottle after 24 hours. 12/26/20 20:22 Blood Aerobic Blood Culture - Preliminary No growth in Aerobic bottle after 24 hours. 12/26/20 20:22 Blood Anaerobic Blood Culture - Preliminary No growth in Anaerobic bottle after 24 hours. Hospital Course (1) Acute hypoxemic respiratory failure: No aspiration per ST Recent antibiotic course for bronchitis No sepsis for now SSS status post PPM, paced rhythm CAD status post CABG hypertension, stable BP hyperlipidemia, on statin Rx myelodysplastic syndrome, stable hemoglobin prostate cancer status post surgery DC Today Augmentin on DC for 10 days, Guaifenesin Flutter Valve Spirometry Swallow eval normal DNR Labs Checked ROS-No Headache, No Visual Changes, No Nausea, No Vomiting, No Fever, No Chills, No Neck Pain or Stiffness, No Chest Pain, No Palpitations, No SOB, No MOSHER, No Cough, No Sputum, No Wheezing, No Abdominal Pain, No Diarrhea, No Hematemesis, No Hemoptysis, No Unexpected Weight Loss, No Flank pain, No Melena, No Hematochezia, No Frequency, No Urgency, No Burning, No Hematuria, No Rashes, No Diaphoresis. Appetite is Normal Physical Exam Gen-AAO x 3, NAD, Afebrile Head-NCAT, EOMI, PERRLA, Anicteric Sclera, No Posterior Pharyngeal Erythema Neck-Supple, No JVD, No Thyromegaly, No Masses, No LAD, No Bruits Lungs-Clear to Auscultation Bilaterally, No Rales, No Rhonchi, No Wheezing, No Crepitus Chest-No S4, +S1, +S2, No S3, No Murmurs, No Rubs, No Gallops, No Ectopy Abdomen-Soft, Bowel Sounds Present, Non Tender, Non Distended, No Hepatomegaly, No Splenomegaly, No Palpable Masses, No Rebound, No Rigidity, No Guarding Musculoskeletal-Full Range of Motion Bilaterally, No CVAT Extremities-No Cyanosis, No Clubbing, No Edema Nuero-Cranial Nerves II-XII grossly intact, Motor WNL, DTRs WNL, Strength WNL, Non Focal Psych-Normal Mood Total Time Total Time Spent Total Time Spent (In Minutes): 45 mins Total Time Includes: Examination of the Patient, Discharge Planning, Medication Reconciliation and Communication With Other Providers Discharge Plan Discharge Items Patient Disposition: Home - Self-Care Reason For Visit: RESP FAILURE Discharge Diagnosis: Tracheobronchitis Acute hypoxemic respiratory failure: SSS status post PPM CAD status post CABG hypertension hyperlipidemia myelodysplastic syndrome prostate cancer history Condition on Discharge: Good Health Concerns: Relapse Activity: Resume your previous activity Lifting: Gradually increase as tolerated Bathing: No limitations Sexual Activity: When tolerated Exercise/Sports: Gradually increase as tolerated Driving/Machine Use: No limitations Weightbearing: Full weightbearing Non-emergency contact: Primary Care Provider Call non-emergency contact if: you have any medication questions Follow-up/Referrals: Elizabeth Jose MD [Primary Care Provider] - Diet: Heart Healthy Diet Texture: Easy to Chew Addtl Attending Provider Instructions: Spirometer 10x/hour while awake Pending Studies at Discharge: No Stand-Alone Forms: My [employer], Smoking Cessation Medications and DC Order Prescriptions: New metoprolol succinate 25 mg Tablet Extended Release 24 Hr 12.5 mg PO DAILY Qty: 30 RF: 0 amoxicillin-pot clavulanate [Augmentin] 875-125 mg Tablet 1 tab PO BIDM Qty: 20 RF: 0 guaifenesin 600 mg tablet extended release 12hr 600 mg PO BID PRN (Reason: cough) Qty: 60 RF: 0 Continued atorvastatin [Lipitor] 20 mg tablet 20 mg PO Q2D RF: 0 amlodipine 5 mg Tablet 5 mg PO QAM RF: 0 dorzolamide-timolol 22.3-6.8 mg/mL Drops 1 drp OPB BID RF: 0 glucosamine-chondroitin [Osteo Bi-Flex] 250-200 mg Tablet 1 tab PO QAM RF: 0 aspirin 81 mg Tablet,Delayed Release (Dr/Ec) 81 mg PO QAM RF: 0 PreserVision AREDS [id number] Capsule 1 cap PO QAM RF: 0 Discontinued metoprolol tartrate 25 mg Tablet 25 mg PO QAM RF: 0 Discharge Orders: Discharge Order (Routine); Ordered 12/28/20 Ordered By: Yon Thao/Other Patient Handouts: Acute Bronchitis Admission Data Admit Date/Time: 12/27/20 00:31 Attending Provider: Yon Garcia Admit Provider: Ronn Arreguin Primary Care Provider: Elizabeth Jose Other Providers: Ronn Arreguin
--- NOTE | 2021-01-05 09:07 | Coding Query ---
To promote full compliance with coding requirements relating to patient care, provider participation is requested in all cases of lcac radar operator/navigator uncertainty. Please assist us with the question(s) below: Coding Question(s): The diagnosis(es) below was documented in the (lcac radar operator/navigator fill out source document ie H&P, progress notes, etc.) then subsequently fell off all further documentation. Please indicate if it is still a possible diagnosis or ruled out. Physician's Response(s): ASPIRATION PNEUMONIA ( xx ) Diagnosed and POA ( ) Diagnosed and not POA ( ) Ruled out ( ) Other (please specify) MTDD
== END 2020-12-28 18:30 | disposition home or self-care (01) | DRG 177 ==
LOC: ED 19:07 → SUATTDRO 12-27 00:31 → 2N 12-27 00:31

== ENCOUNTER 2021-02-10 09:18 | Inpatient (IN) ==
[2021-02-10] MEDS ORDERED: LEVALBUTEROL HCL 1.25 MG/3 ML NEB NEB STA ×3 (09:55→11:07)
[2021-02-10] MEDS ORDERED: methylPREDNISolone 125 MG/2 ML VIAL IV STA (10:07)
--- NOTE | 2021-02-10 10:24 | XRay Report ---
SINGLE VIEW CHEST CLINICAL HISTORY: Atypical chest pain. FINDINGS: 2 AP, portable, upright chest radiographs are compared to study dated 12/26/2020 and correla jania with chest CT dated 12/27/2020. The examination is degraded by portable technique and patient rota tion. The patient is status post midline sternotomy. A 2-lead cardiac pacemaker is unchanged in posi tion. The heart is mildly enlarged noting atherosclerotic calcification of the thoracic aorta. The pu lmonary vasculature is noncongested. Chronic interstitial thickening is similar to previous. There is bibasilar scarring/atelectasis. No airspace consolidation or large pleural effusion is identified. N o pneumothorax is seen. The skeletal structures are osteopenic. The bony thorax is grossly intact. IMPRESSION: 1. Cardiomegaly and cardiac pacemaker with no radiographic evidence of congestive failure. 2. No airspace consolidation or large pleural effusion is identified. ACT 112: Negative or not required by law. Electronically signed by: Good Myers M.D. 02/10/2021 10:23 AM
[2021-02-10 10:43] LABS: Basophils # (auto) 0.01 K/uL (0-0.2); Basophils % (auto) 0.2 %; Eosinophils % (auto) 3.9 %; Hematocrit (blood only) 33.1 % (42-52); Hemoglobin 10.5 g/dL (14.0-18.0); Immature Granulocytes # (auto) 0.02 K/uL (0.00-0.02); Immature Granulocytes % (auto) 0.4 %; Lymphocytes # (auto) 1.49 K/uL (1.2-3.4); Lymphocytes % (auto) 28.7 %; Mean Corpuscular Hemoglobin 33.4 pg (25-34); Mean Corpuscular Hgb Conc 31.7 g/dL (32-36); Mean Corpuscular Volume 105.4 fL (80-100); Mean Platelet Volume 11.3 fL (7.4-10.4); Monocytes # (auto) 0.59 K/uL (0.11-0.59); Monocytes % (auto) 11.4 %; Neutrophils # (auto) 2.88 K/uL (1.4-6.5); Neutrophils % (auto) 55.4 %; Nucleated RBC # (auto) 0.04 K/uL (0-0); Nucleated RBC % (auto) 0.9 %; Platelet Count 246 K/uL (130-400); RDW Coefficient of Variation 19.2 % (11.5-14.5); RDW Standard Deviation 72.8 fL (36.4-46.3); Red Blood Count 3.14 M/uL (4.7-6.1); White Blood Count 5.19 K/uL (4.8-10.8)
[2021-02-10 11:01] LABS: Partial Thromboplastin Time 26.9 Seconds (21.0-31.0)
[2021-02-10 11:06] LABS: Albumin Level 3.4 gm/dl (3.4-5.0); BUN Creatinine Ratio 19.2 (10-20); Calcium 8.2 mg/dl (8.5-10.1); Creatinine Clr Calc Pharmacy 68.5 ml/min; Est GFR (African American) 96.8 ml/min; Est GFR (Non-African American) 83.5 ml/min; Potassium 4.2 mmol/L (3.5-5.1)
[2021-02-10 11:14] LABS: Albumin Globulin Ratio 1.3 (0.9-2); Bilirubin,Total 0.8 mg/dl (0.2-1); Creatine Kinase MB 2.4 ng/ml (0.5-3.6); Globulin 2.7 gm/dl (2.5-4.0); Total Protein 6.1 gm/dl (6.4-8.2); Troponin I 0.047 ng/ml (0-0.045)
--- NOTE | 2021-02-10 11:16 | History & Physical Report ---
Date of Service February 10, 2021 Assessment & Plan (1) Acute hypoxemic respiratory failure: Plan: -Admit to tele -Recently admitted in [facility] from 01/30-02/02 for similar presentation. Prior to this admitted 12/27-12/28, and then in the ER on 12/17/20. -On 02/09 PFTs were conducted, showing restrictive disease pattern -Pulm consulted- has had difficulty establishing as outpatient, increase hospitalizations for acute hypoxic respiratory failure, asbestos plaque, had PFTs done yesterday. -COVID-19 negative on admission -CXR reviewed without evidence of congestive failure, no airspace consolidation or large pleural effusion -Given Solu-Medrol 60 mg x 1 and 3 nebulizer treatments in the ER, currently on 2L with O2 sats at 99%. He does not wear oxygen at baseline at home prior to this. - Check procal - Empirically give azithromycin PO, may also help with anti-inflammatory effects. -Continue Solu-Medrol 40 mg BID, neb treatments, O2 as needed, consider noc ox/ambulatory pulse ox prior to discharge. (2) Asbestos-induced pleural plaque: Plan: -History of such -PFTs as above recently completed -Pulm consulted - will require continuation of care after discharge (3) CAD (coronary artery disease): Plan: -Echo completed on 01/31 showing an EF of 60 to 64%, no WMA, left ventricular diastolic dysfunction, mild aortic stenosis, mild elevated right ventricular pressure -Troponin 0 0.047, was similarly elevated during last admission at [facility], high sensitives trop was 40 and 38. Will trend. - No chest pain, heaviness, palpitations, etc, so very unlikely ACS. - Follows with zach Hutchison, as outpatient for pacemaker. Pacemaker inserted about 12 yrs ago, battery replaced in 2019. (4) Paroxysmal A-fib: Plan: -Was previously placed on Eliquis during his last hospital stay however due to cost the patient is being transitioned to Coumadin, plans to follow with [facility], Coumadin clinic as an outpatient (5) MDS (myelodysplastic syndrome): Plan: -Follows with oncology as outpt, MCV = 105.4 (6) HTN (hypertension): Plan: -Continue metoprolol succinate 25 mg BID - BP stable DVT ppx: - teds, scds CODE: DNR/DNI Dispo: From home, likely to remain in the hospital x 1-2 days History of Present Illness Chief Complaint: Shortness of breath Primary Care Provider: Elizabeth Jose MD 85 year old male with history of myelodysplastic syndrome, hypertension, CAD, s/p pacemaker placement, tachy-ruben syndrome, paroxysmal atrial fibrillation, history of asbestos induced pleural plaque, COPD, hx of prostate cancer, severe protein-energy malnutrition who presents for worsening shortness of breath x3 days. He was recently admitted from 01/31/20-02/02/21 at [facility] due to acute respiratory failure with hypoxia. There he required O2 up to 5 L, his Covid test was negative. He was scheduled for outpatient PFTs, and referred to pulmonology but was supposed to see Dr. Desir at [facility] today, however is here in the ER. During his previous hospital stay he was started on Eliquis due to Afib. He has had PAF for the past 12 years per . Anticoagulation with Eliquis costed over $300.00 for the patient, and he does no t have insurance, and is unable to travel/hassel, to [place] to the CT. His PCP decided to switch to Coumadin on 02/08/2021. They have arranged MTM/Coumadin clinic to follow with him once starting coumadin on March 06. , Earnestine, provides the majority of the history as the patient is incredibly tired, and feels weak to even speak. She reports that around 7 PM last evening he began to appear more short of breath and said that he was not feeling well. reports his O2 sats were in the low 80s all night whenever she checked him intermittently. reports that pulmonology, Dr. Desir will be unable to see him until the end of April and is requesting to follow with pulmonology through [facility] if possible. PFTs were completed as an outpatient yesterday prior to all of his symptoms. Patient told his that he was in atrial fibrillation; "I did not feel right", however unable to characterize his symptoms he had that made him feel like he was in this rhythm. Denies any chest pain, palpitations, heaviness or significant shortness of breath currently. He feels better on supplemental O2, which he doesn't wear at baseline. Denies any recent sick contacts, travel, fever, chills or sweats. Patient reports last bowel movement was 2 days ago and that he does intermittently struggle with constipation, but normally is relieved by MiraLAX and occasional Dulcolax tablets. Allergies Allergy/AdvReac Type Severity Reaction Status Date / Time cephalexin Allergy Severe Rash Unverified 02/10/21 11:16 lisinopril Allergy Unknown Rxn not Verified 02/10/21 11:16 stated niacin Allergy Unknown Reaction Verified 02/10/21 11:16 not stated Home Medications Medication Instructions Recorded Confirmed Type atorvastatin 20 mg tablet (Lipitor) 20 mg PO Q2D 01/21/19 02/10/21 History dorzolamide 22.3 mg-timolol 6.8 1 drp OPB BID 01/21/19 02/10/21 History mg/mL eye drops glucosamine-chondroitin 250 mg-200 1 tab PO QAM 01/21/19 02/10/21 History mg tablet (Osteo Bi-Flex) vitamins A,C,G-wqel-gbypze 14,320 1 cap PO QAM 12/17/20 02/10/21 History unit-226 mg-200 unit capsule (PreserVision AREDS) albuterol sulfate 90 mcg/actuation 2 puff INHALATION Q4H PRN 02/10/21 02/10/21 History aerosol inhaler apixaban 5 mg tablet (Eliquis) 5 mg PO BID 02/10/21 02/10/21 History ipratropium 0.5 mg-albuterol 3 mg 3 ml INHALATION QID 02/10/21 02/10/21 History (2.5 mg base)/3 mL nebulization soln latanoprost 0.005 % eye drops 1 drp OPB HS 02/10/21 02/10/21 History metoprolol succinate 25 mg 25 mg PO BID 02/10/21 02/10/21 History tablet,extended release 24 hr mirtazapine 15 mg tablet 15 mg PO HS 02/10/21 02/10/21 History umeclidinium 62.5 mcg/actuation 1 inh INHALATION DAILY 02/10/21 02/10/21 History blister powder for inhalation (Incruse Ellipta) Past Med/Surg History Medical History CAD (coronary artery disease) History of nephrolithiasis History of prostate cancer HTN (hypertension) Hyperlipidemia Macular degeneration MDS (myelodysplastic syndrome) Paroxysmal A-fib Tachy-ruben syndrome Surgical History History of prostatectomy 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, battery recently replaced 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 Family History Mother Coronary heart disease Social History Smoking Status: Never smoker Second Hand Exposure: Yes (not currently); Hx Alcohol Use: No Hx Substance Use: No Preferred Language: Nigerian Communication Ability: Effective Health Technician Required: No Beliefs That Will Affect Care: None Current Living Situation: Spouse Other Information That Helps Us Care for You: No Feels Safe at Home: Yes Safety Concerns: Feels Safe At This Time Assistive Devices: None Assistive Devices Comment: not here at the hospital Review of Systems Review of Systems: Constitutional: No fever, sweats or chills Eyes: No diplopia, no worsening or blurred vision ENT: normal hearing, no trouble swallowing Respiratory: As per HPI, no cough, sputum, + dyspnea on exertion, not at rest Cardiovascular: No chest pain, tightness or palpitations Abdomen: No pain, nausea, vomiting, diarrhea, + intermittent constipation Musculoskeletal: No joint pain, calf pain, swelling Neurologic: + Generalized weakness, no numbness/tingling, or balance problems Psychiatric: No anxiety or depression Skin: No rash or itch Physical Exam Physical Exam: General: awake, alert, no apparent distress, + fatigued, + thin, BMI 22 Head: Normocephalic, atraumatic ENT: PERRL, EOMI, no pharyngeal exudate, mucous membranes dry Chest: Diminished throughout on auscultation, on 2 via NC, primarily mouth breathing, no adventitious breath sounds Cardiac: Regular rate and rhythm, + systolic murmur, no JVD, normal peripheral pulses, good capillary refill Abdominal: NABS x 4 quadrants, soft, nondistended, nontender to palpation, no rebound or guarding Extremities: Normal inspection, no peripheral edema or erythema, calfs nontender to palpation Psych: Normal mood and affect Neuro: AAO x 3, strength intact bilaterally and rated 5/5, no motor deficits, speech is clear, no peripheral sensory deficits Results & Data Results & Data ([facility]) Vital Signs (Past 12 Hours) Vital Signs Temp Pulse Pulse Resp BP Pulse Ox 02/10/21 11:11 62 20 99 02/10/21 10:30 69 25 H 105/54 L 100 02/10/21 10:24 66 22 100 02/10/21 10:00 62 21 99/57 L 88 L 02/10/21 09:55 67 19 91/58 L 92 02/10/21 09:40 100 02/10/21 09:27 36.6 C 72 20 103/64 98 02/10/21 09:22 68 12 103/64 100 Diagnostic Findings Chest X-Ray 02/10/21 09:55 SINGLE VIEW CHEST CLINICAL HISTORY: Atypical chest pain. FINDINGS: 2 AP, portable, upright chest radiographs are compared to study dated 12/26/2020 and correlated with chest CT dated 12/27/2020. The examination is degraded by portable technique and patient rotation. The patient is status post midline sternotomy. A 2-lead cardiac pacemaker is unchanged in position. The heart is mildly enlarged noting atherosclerotic calcification of the thoracic aorta. The pulmonary vasculature is noncongested. Chronic interstitial thickening is similar to previous. There is bibasilar scarring/atelectasis. No airspace consolidation or large pleural effusion is identified. No pneumothorax is seen. The skeletal structures are osteopenic. The bony thorax is grossly intact. IMPRESSION: 1. Cardiomegaly and cardiac pacemaker with no radiographic evidence of congestive failure. 2. No airspace consolidation or large pleural effusion is identified. ACT 112: Negative or not required by law. Electronically signed by: Good Myers M.D. 02/10/2021 10:23 AM ECG Additional Comments: 10-FEB-2021 09:28:18 [facility]-EDSTAT ROUTINE RETRIEVAL Atrial-paced rhythm with occasional Premature ventricular complexes Cannot rule out Inferior infarct , age undetermined Abnormal ECG When compared with ECG of 26-DEC-2020 19:19, Nonspecific T wave abnormality now evident in Anterior leads 25mm/s 10mm/mV 150Hz 9.0.9 12SL 241 LOCO: 3 Referred by: REFERRED SELF Unconfirmed Vent. rate 67 BPM ND interval 170 ms QRS duration 94 ms QT/QTc 418/441 ms Code Status & VTE Plan Code Status DNR/DNI-discussed with the patient and his at bedside Supervising Physician Co-Signing Physician Notes Patient seen and examined by me, care coordinated with Julia Yang PA-C, please refer to her note above for further detail. Pt is an 85 y/o male with history of myelodysplastic syndrome, hypertension, CAD, s/p pacemaker placement, tachy-ruben syndrome, paroxysmal atrial fibrillation, history of asbestos induced pleural plaque, COPD, hx of prostate cancer, severe protein-calorie malnutrition who presents for worsening shortness of breath x3 days. S/p multiple recent admissions for the same. Pt was supposed to see pulmonology - Dr. Desir at [facility] today and establish care, given he is in the hospital patient and his inquiring about seeing [facility] classified advertising clerk. reports that pulmonology, Dr. Desir will be unable to see him until the end of April. Currently patient is sitting up in bed, in no acute distress, appears fatigued, thin. On supplemental oxygen. Decreased breath sounds bilaterally, without any wheezing rhonchi crackles. Heart sounds s1, s2, noted, + syst. murmur, abdomen is soft, nondistended, nontender to palpation. There is no lower extremity edema. Skin is warm, dry. Provide supplemental oxygen, azithromycin, steroid, nebs continue to closely monitor pulse ox and hemodynamic status of the patient on telemetry. We will discuss further with pulmonology, given patient's recent readmissions. Owen Lai MD
[2021-02-10 12:06] LABS: Base Excess ABG 5.9 mEq/L (-9-1.8); HCO3 ABG 35 mmol/L (19-24); Oxygen Saturation ABG 93.6 % (90-95); PCO2 ABG 82 mmHg (35-46); PO2 ABG 78 mmHg (80-95); pH ABG 7.25 (7.35-7.45)
[2021-02-10 12:11] LABS: INR 1.2 (0.9-1.1); Prothrombin Time 11.8 Seconds (9.0-12.0)
[2021-02-10 12:21] LABS: Allen Test Pos (Pos)
[2021-02-10] MEDS ORDERED: AZITHROMYCIN 250 MG TAB PO ONE (12:51)
[2021-02-10] MEDS ORDERED: ONDANSETRON INJ 2 MG/ML 2 ML VIAL IV PRN (13:09)
[2021-02-10] MEDS ORDERED: ACETAMINOPHEN 325 MG TAB PO PRN (13:09)
--- NOTE | 2021-02-10 14:35 | Pulmonary Consultation ---
Date of Consultation February 10, 2021 Assessment & Plan (1) Asbestos-induced pleural plaque: (2) Acute hypoxemic respiratory failure: (3) Shortness of breath: (4) Abnormal PFTs (pulmonary function tests): Spirometry 02/09/2021 personally reviewed: Nonspecific spirometry with decrease in FVC and FEV1, no obstructive lung dysfunction FVC 2.09 L, 62%, FEV1 1.66 L, 67%, FEV1/FVC 80% CT chest 12/27/2020 personally reviewed: Centrilobular emphysema appreciated, left lower lobe superior segment perifissural pulmonary nodule, Pleural plaques appreciated bilaterally especially right anterior and left lower posterior aspect No mediastinal lymphadenopathy Chest x-ray 02/10/2021 personally viewed: Portable film, hyperinflated, bilateral costophrenic and cardiophrenic angles are clean, increased cardiac silhouette, no clear lung infiltrate appreciated. 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 He does have restriction this could be from asbestos plaques As per the hypoxia usually when the patient is sleeping or dozing off. 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 which might be causing the issue --Nonspecific spirometry I think patient has restrictive pattern rather than obstructive pattern It could be a mixed picture as well I am going to start the patient on Anoro to see if he benefits from it Absolute eosinophil count 200 Plan: Patient was saturating 100% the time of examination on 2 L Recommend full PFTs as an outpatient Recommend nocturnal pulse oximetry while in the hospital Patient had mucous plugging on the CAT scan done in December/2020 Patient is also complaining of chest congestion unable to bring up phlegm I will order Mucinex continue with flutter valve. Would recommend to make patient walk in the corridor on room air to see if he desaturates. Would recommend tapering prednisone off starting tomorrow to prednisone. Case discussed with Dr Lai Please note the above document was generated using voice recognition software. It may contain grammatical, syntax or spelling errors.Any formal questions or concerns about the content, text or information contained within the body of this dictation should be directly addressed to the provider for clarification. History of Present Illness Attending Physician: Benja Lai MD History of Present Illness 85-year-old male past medical history of MDS, hypertension, coronary artery disease s/p pacemaker, tachybradycardia syndrome, paroxysmal A. fib, history of asbestos exposure presented to the hospital with complaints of worsening shortness of breath going on since last to 3 days. Consulted for the same. Patient was admitted at [facility] for again respiratory failure where he required 5 L of oxygen. He did have spirometry done yesterday Patient's was in the room. History obtained from patient as well as henrik sousa's As per the patient he has been having worsening shortness of breath which has been going on for a while. As per the she has noted sats going up to in the 80s especially when patient is dozing off or sleeping. Patient is hardly able to walk 100 feet before he has to stop and catch his breath. He complains of generalized weakness and lethargic. Denies any fever or chills. Does complain of chest congestion unable to bring the phlegm. No dysuria, no diarrhea. No headache. No blurry vision. Patient has lost approximately 50 pounds in 1 year. No history of any autoimmune disease in the family like lupus, sarcoid, rheumatoid arthritis, Sjogren's Patient denies any personal history of Raynaud's phenomena Social history: Lifetime non-smoker, no illicit drug use, no alcohol use. 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 Used to wear mask Pets: None, no birds or poultry nearby Asthma: No personal or family history of asthma Cancer cancer: No history of lung cancer in the family Allergies Allergy/AdvReac Type Severity Reaction Status Date / Time cephalexin Allergy Severe Rash Unverified 02/10/21 11:16 lisinopril Allergy Unknown Rxn not Verified 02/10/21 11:16 stated niacin Allergy Unknown Reaction Verified 02/10/21 11:16 not stated Home Medications Medication Instructions Recorded Confirmed Type atorvastatin 20 mg tablet (Lipitor) 20 mg PO Q2D 01/21/19 02/10/21 History dorzolamide 22.3 mg-timolol 6.8 1 drp OPB BID 01/21/19 02/10/21 History mg/mL eye drops glucosamine-chondroitin 250 mg-200 1 tab PO QAM 01/21/19 02/10/21 History mg tablet (Osteo Bi-Flex) vitamins A,C,A-qyha-bwhrud 14,320 1 cap PO QAM 12/17/20 02/10/21 History unit-226 mg-200 unit capsule (PreserVision AREDS) albuterol sulfate 90 mcg/actuation 2 puff INHALATION Q4H PRN 02/10/21 02/10/21 History aerosol inhaler apixaban 5 mg tablet (Eliquis) 5 mg PO BID 02/10/21 02/10/21 History ipratropium 0.5 mg-albuterol 3 mg 3 ml INHALATION QID 02/10/21 02/10/21 History (2.5 mg base)/3 mL nebulization soln latanoprost 0.005 % eye drops 1 drp OPB HS 02/10/21 02/10/21 History metoprolol succinate 25 mg 25 mg PO BID 02/10/21 02/10/21 History tablet,extended release 24 hr mirtazapine 15 mg tablet 15 mg PO HS 02/10/21 02/10/21 History umeclidinium 62.5 mcg/actuation 1 inh INHALATION DAILY 02/10/21 02/10/21 History blister powder for inhalation (Incruse Ellipta) Patient History Medical History (Updated 02/10/21 @ 17:36 by Aly Hernández MD) CAD (coronary artery disease) History of nephrolithiasis History of prostate cancer HTN (hypertension) Hyperlipidemia Macular degeneration MDS (myelodysplastic syndrome) Paroxysmal A-fib Tachy-ruben syndrome Surgical History History of prostatectomy 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, battery recently replaced 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 Family History Mother Coronary heart disease Social History Smoking Status: Never smoker Second Hand Exposure: Yes (not currently); Hx Alcohol Use: No Hx Substance Use: No Preferred Language: Namibian Communication Ability: Effective Wood Pattern 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 Required: No Beliefs That Will Affect Care: None Current Living Situation: Spouse Other Information That Helps Us Care for You: No Feels Safe at Home: Yes Safety Concerns: Feels Safe At This Time Assistive Devices: Denture - Upper, Denture - Lower, Glasses, Hearing Aid - Bilateral and Walker Assistive Devices Comment: not here at the hospital Review of Systems Review of Systems: All systems reviewed & are unremarkable except as noted in HPI & below Physical Exam Physical Exam: Constitutional: No acute distress, frail-appearing HEENT: EOMI, PERRLA Respiratory system: Decreased air entry bilaterally, no wheeze, rhonchi, no crackles CVS: S1-S2 positive, positive 2 out of 6 systolic murmur noted best at the apex Abdomen: Soft, nontender, nondistended, positive bowel sounds x4 Extremities: +2 pulses bilaterally radialis/ dorsalis pedis, no cyanosis, no edema no clubbing Neuro: Awake alert oriented x3 Psych: Normal mood and affect G/U: No Adamson Skin: no rashes, warm and dry Lymphatic: no cervical or axillary lymphadenopathy Results & Data Results & Data ([facility]) Vital Signs (Past 12 Hours) Vital Signs Temp Pulse Pulse Resp BP BP Pulse Ox 02/10/21 13:09 02/10/21 13:00 36.5 C 86 18 120/69 99 02/10/21 12:52 79 02/10/21 11:11 62 20 99 02/10/21 10:30 69 25 H 105/54 L 100 02/10/21 10:24 66 22 100 02/10/21 10:00 62 21 99/57 L 88 L 02/10/21 09:55 67 19 91/58 L 92 02/10/21 09:40 100 02/10/21 09:27 36.6 C 72 20 103/64 98 02/10/21 09:22 68 12 103/64 100 Pulse Ox 02/10/21 13:09 99 02/10/21 13:00 02/10/21 12:52 02/10/21 11:11 02/10/21 10:30 02/10/21 10:24 02/10/21 10:00 02/10/21 09:55 02/10/21 09:40 02/10/21 09:27 02/10/21 09:22 02/10/21 10:19 02/10/21 10:19 PG Care Time/CCT Total # of Minutes Spent Total Time Spent with Patient: Total time spent is greater than 50% in coordination of care (as documented) at patient's floor/unit and/or counseling patient: Coding Level of Care Code 18670 Initial Inpt Care Lvl 3 Diagnoses Asbestos-induced pleural plaque J92.0 Acute hypoxemic respiratory failure J96.01 Shortness of breath R06.02 Abnormal PFTs (pulmonary function tests) R94.2
[2021-02-10] MEDS: UMECLIDINIUM/VILANTEROL 62.5/25MCG 7 PUFFS/INHALER INH SCH (18:31)
[2021-02-10] MEDS: LEVALBUTEROL HCL 1.25 MG/3 ML NEB INH SCH (18:57)
[2021-02-10] MEDS ORDERED: LEVALBUTEROL 1.25MG/0.5ML NEB NEB SCH (19:00)
[2021-02-10] MEDS: methylPREDNISolone 40 MG in SYRINGE 0 ML IV SCH (21:00)
[2021-02-10 21:39] LABS: Base Excess ABG 6.5 mEq/L (-9-1.8); HCO3 ABG 34 mmol/L (19-24); PCO2 ABG 65 mmHg (35-46); PO2 ABG 62 mmHg (80-95); pH ABG 7.34 (7.35-7.45)
[2021-02-10 21:43] LABS: Allen Test POS (Pos)
[2021-02-10] MEDS: guaiFENesin 600 MG TABCR PO SCH (21:48)
[2021-02-11] MEDS: LEVALBUTEROL HCL 1.25 MG/3 ML NEB INH SCH ×4 (00:58→19:11)
[2021-02-11 07:04] LABS: Albumin Level 3.4 gm/dl (3.4-5.0); BUN Creatinine Ratio 29.3 (10-20); Bilirubin,Total 0.8 mg/dl (0.2-1); Calcium 8.5 mg/dl (8.5-10.1); Creatinine Clr Calc Pharmacy 78.2 ml/min; Est GFR (African American) 104.8 ml/min; Est GFR (Non-African American) 90.4 ml/min; Globulin 3.3 gm/dl (2.5-4.0); Potassium 5.2 mmol/L (3.5-5.1); Total Protein 6.7 gm/dl (6.4-8.2)
[2021-02-11 07:10] LABS: Hematocrit (blood only) 32.9 % (42-52); Hemoglobin 10.7 g/dL (14.0-18.0); Mean Corpuscular Hemoglobin 34.1 pg (25-34); Mean Corpuscular Volume 104.8 fL (80-100); Mean Platelet Volume 10.9 fL (7.4-10.4); Nucleated RBC # (auto) 0.13 K/uL (0-0); Nucleated RBC % (auto) 1.8 %; Platelet Count 259 K/uL (130-400); RDW Coefficient of Variation 18.9 % (11.5-14.5); RDW Standard Deviation 69.8 fL (36.4-46.3); Red Blood Count 3.14 M/uL (4.7-6.1); White Blood Count 7.52 K/uL (4.8-10.8)
[2021-02-11 07:12] LABS: Mean Corpuscular Hgb Conc 32.5 g/dL (32-36)
[2021-02-11 07:16] LABS: Base Excess ABG 6.5 mEq/L (-9-1.8); HCO3 ABG 34 mmol/L (19-24); Oxygen Saturation ABG 89.8 % (90-95); PCO2 ABG 65 mmHg (35-46); PO2 ABG 60 mmHg (80-95); pH ABG 7.34 (7.35-7.45)
[2021-02-11 07:44] LABS: Allen Test Pos (Pos)
--- NOTE | 2021-02-11 07:51 | Hospitalist Progress Note ---
Date of Service February 11, 2021 Assessment & Plan Admission and Anticipated Discharge Date Admission Date: February 10, 2021 Subjective Yesterday evening patient was lethargic.Ordered abg. He was saturating 100% on 2lt oxygen. When oxygen was taken off his oxygen sats were in low 90's and his mental status improved. Abg was ok at that time. During night his oxygen sats were dropping to 60% and even 40% at one point of time as per nursing staff and he was placed back on oxygen 2lts and his sats improved. Again today morning he was lethargic and oxygen was taken off and his mental status improved but his oxygen sats were againg dropping. Currently plan to place on bipap with room air and monitor. To continue to monitor. Results & Data Results & Data ([facility]) Vital Signs (Past 12 Hours) Vital Signs Temp Pulse Pulse Pulse Resp BP Pulse Ox 02/11/21 07:14 16 65 L 02/11/21 05:59 84 18 133/71 91 02/11/21 03:13 36.4 C L 60 17 110/64 100 02/11/21 02:30 78 02/11/21 00:58 64 02/10/21 22:58 36.4 C L 60 18 110/63 98 02/10/21 21:20 62 02/10/21 21:02 19 135/65 100 Pulse Ox Pulse Ox 02/11/21 07:14 02/11/21 05:59 02/11/21 03:13 02/11/21 02:30 90 62 L 02/11/21 00:58 92 02/10/21 22:58 02/10/21 21:20 90 02/10/21 21:02
[2021-02-11] MEDS: AZITHROMYCIN 250 MG TAB PO SCH (08:04)
[2021-02-11] MEDS: CEROVITE ADV FORMULA TAB PO SCH (08:04)
[2021-02-11] MEDS: guaiFENesin 600 MG TABCR PO SCH ×2 (08:04→19:41)
[2021-02-11] MEDS: UMECLIDINIUM/VILANTEROL 62.5/25MCG 7 PUFFS/INHALER INH SCH (08:04)
[2021-02-11] MEDS: methylPREDNISolone 40 MG in SYRINGE 0 ML IV SCH (10:07)
--- NOTE | 2021-02-11 11:47 | Pulmonology Progress Note ---
Date of Service February 11, 2021 Assessment & Plan (1) Asbestos-induced pleural plaque: (2) Acute hypoxemic respiratory failure: (3) Shortness of breath: (4) Abnormal PFTs (pulmonary function tests): Plan: Spirometry 02/09/2021 personally reviewed: Nonspecific spirometry with decrease in FVC and FEV1, no obstructive lung dysfunction FVC 2.09 L, 62%, FEV1 1.66 L, 67%, FEV1/FVC 80% CT chest 12/27/2020 personally reviewed: Centrilobular emphysema appreciated, left lower lobe superior segment perifissural pulmonary nodule, Pleural plaques appreciated bilaterally especially right anterior and left lower posterior aspect No mediastinal lymphadenopathy Chest x-ray 02/10/2021 personally viewed: Portable film, hyperinflated, bilateral costophrenic and cardiophrenic angles are clean, increased cardiac silhouette, no clear lung infiltrate appreciated. 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 He does have restriction this could be from asbestos plaques As per the hypoxia usually when the patient is sleeping or dozing off. 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 He did desaturate to 87% while talking to me. I think he will need O2 supplementation when he goes home. Nocturnal pulse oximetry does show significant hypoxia at night Central sleep apneas might be playing a role I would recommend BiPAP 10/6 nightly while in the hospital with backup rate of 12. Patient will need outpatient polysomnography Recommend nocturnal pulse oximetry while in the hospital DC Solu-Medrol Please note the above document was generated using voice recognition software. It may contain grammatical, syntax or spelling errors.Any formal questions or concerns about the content, text or information contained within the body of th is dictation should be directly addressed to the provider for clarification. Admission and Anticipated Discharge Date Admission Date: February 10, 2021 Subjective Patient seen and examined at bedside. No acute distress, no adverse events overnight. Patient states that his shortness of breath is improved compared to before. Denies any chest pain, has been using flutter valve. Not bringing up significant phlegm. No fever or chills. Fair appetite. Review of Systems Review of Systems: All systems reviewed & are unremarkable except as noted in Subjective Physical Exam Physical Exam: Constitutional: No acute distress, frail-appearing HEENT: EOMI, PERRLA Respiratory system: Decreased air entry bilaterally, no wheeze, rhonchi, no crackles CVS: S1-S2 positive, positive 2 out of 6 systolic murmur noted best at the apex Abdomen: Soft, nontender, nondistended, positive bowel sounds x4 Extremities: +2 pulses bilaterally radialis/ dorsalis pedis, no cyanosis, no edema no clubbing Neuro: Awake alert oriented x3 Psych: Normal mood and affect G/U: No Adamson Skin: no rashes, warm and dry Lymphatic: no cervical or axillary lymphadenopathy Results & Data Results & Data ([facility]) Vital Signs (Past 12 Hours) Vital Signs Temp Pulse Pulse Pulse Pulse Resp BP 02/11/21 11:00 36.8 C 74 18 124/71 02/11/21 08:43 36.8 C 86 16 134/73 02/11/21 07:14 16 02/11/21 07:00 71 02/11/21 05:59 84 18 133/71 02/11/21 03:13 36.4 C L 60 17 110/64 02/11/21 02:30 78 02/11/21 00:58 64 Pulse Ox Pulse Ox Pulse Ox 02/11/21 11:00 96 02/11/21 08:43 99 02/11/21 07:14 65 L 02/11/21 07:00 02/11/21 05:59 91 02/11/21 03:13 100 02/11/21 02:30 90 62 L 02/11/21 00:58 92 02/11/21 07:02 02/11/21 06:07 PG Care Time/CCT Total # of Minutes Spent Total Time Spent with Patient: Total time spent is greater than 50% in coordination of care (as documented) at patient's floor/unit and/or counseling patient: Coding Level of Care Code 08591 Subseq Hosp Care Lvl 3 Diagnoses Asbestos-induced pleural plaque J92.0 Acute hypoxemic respiratory failure J96.01 Shortness of breath R06.02 Abnormal PFTs (pulmonary function tests) R94.2
--- NOTE | 2021-02-11 20:06 | Electrocardiogram Report ---
Test Reason : Blood Pressure : / mmHG Vent. Rate : 067 BPM Atrial Rate : 067 BPM P-R Int : 170 ms QRS Dur : 094 ms QT Int : 418 ms P-R-T Axes : 059 056 050 degrees QTc Int : 441 ms Atrial-paced rhythm with occasional Premature ventricular complexes Cannot rule out Inferior infarct , age undetermined Abnormal ECG When compared with ECG of 26-DEC-2020 19:19, No significant change Confirmed by Daryl Martinez ([id number]) on 02/11/2021 8:05:49 PM Referred By: REFERRED SELF Confirmed By:Daryl Martinez
[2021-02-12] MEDS: LEVALBUTEROL HCL 1.25 MG/3 ML NEB INH SCH ×3 (01:09→12:52)
[2021-02-12] MEDS ORDERED: METOPROLOL TARTRATE 1 MG/ML VIAL IV STA (03:31)
[2021-02-12] MEDS ORDERED: METOPROLOL TARTRATE 1 MG/ML VIAL IV ONE (03:34)
[2021-02-12] MEDS ORDERED: STAT IV Infusion **Titration per Protocol STA (04:26)
[2021-02-12] MEDS ORDERED: dilTIAZem HCl 5 MG/ML 5 ML VIAL IV STA (04:26)
[2021-02-12] MEDS: dilTIAZem HCL 125 MG in DEXTROSE 5% 100 ML IV SCH ×2 (04:55→17:17)
[2021-02-12 06:53] LABS: Hematocrit (blood only) 31.5 % (42-52); Hemoglobin 10.2 g/dL (14.0-18.0); Mean Corpuscular Hemoglobin 33.9 pg (25-34); Mean Corpuscular Hgb Conc 32.4 g/dL (32-36); Mean Corpuscular Volume 104.7 fL (80-100); Mean Platelet Volume 10.5 fL (7.4-10.4); Nucleated RBC # (auto) 0.13 K/uL (0-0); Nucleated RBC % (auto) 1.4 %; Platelet Count 228 K/uL (130-400); RDW Coefficient of Variation 19.9 % (11.5-14.5); RDW Standard Deviation 72.7 fL (36.4-46.3); Red Blood Count 3.01 M/uL (4.7-6.1); White Blood Count 9.02 K/uL (4.8-10.8)
[2021-02-12 07:29] LABS: Albumin Globulin Ratio 1.2 (0.9-2); Albumin Level 3.2 gm/dl (3.4-5.0); BUN Creatinine Ratio 31.6 (10-20); Bilirubin,Total 0.8 mg/dl (0.2-1); Calcium 8.3 mg/dl (8.5-10.1); Creatinine Clr Calc Pharmacy 61.4 ml/min; Est GFR (African American) 94.7 ml/min; Est GFR (Non-African American) 81.7 ml/min; Globulin 2.6 gm/dl (2.5-4.0); Potassium 4.4 mmol/L (3.5-5.1); Total Protein 5.8 gm/dl (6.4-8.2)
[2021-02-12] MEDS ORDERED: POLYETHYLENE (MIRALAX) 17 GM PACK PO PRN (07:52)
[2021-02-12] MEDS: guaiFENesin 600 MG TABCR PO SCH ×2 (08:06→21:14)
[2021-02-12] MEDS: UMECLIDINIUM/VILANTEROL 62.5/25MCG 7 PUFFS/INHALER INH SCH (08:06)
[2021-02-12] MEDS: AZITHROMYCIN 250 MG TAB PO SCH (08:06)
[2021-02-12] MEDS: CEROVITE ADV FORMULA TAB PO SCH (08:06)
--- NOTE | 2021-02-12 08:39 | Cardiology Consultation ---
Date of Consultation February 12, 2021 Assessment & Plan (1) Shortness of breath: (2) Asbestos-induced pleural plaque: (3) Acute hypoxemic respiratory failure: (4) CAD (coronary artery disease): (5) Tachy-ruben syndrome: (6) History of permanent cardiac pacemaker placement: (7) Paroxysmal A-fib: (8) MDS (myelodysplastic syndrome): Currently the patient is comfortable. I would continue good pulmonary toilet and treatment. He is in atrial fibrillation or flutter with a controlled rate and I would continue the diltiazem for now. We will follow along with you during his hospital stay. History of Present Illness Attending Physician: Benja Lai MD History of Present Illness This is an 85-year-old male patient with the past medical history as outlined below. He was recently at [facility] with respiratory failure and was to be followed by pulmonology. Yesterday morning however, he awoke short of breath. He has a pulse oximeter at home and need was noted to be hypoxic. His brought him here to this hospital where he has been admitted. During my interaction with him he appears to be comfortable. He is eating his lunch. He is not wearing oxygen. He denies shortness of breath or chest pain. On the telemetry he is in a rate controlled atrial arrhythmia most likely atrial flutter or fibrillation. Past medical history: 1.Atherosclerotic coronary artery disease, status post remote inferior myocardial infarction, subsequent coronary artery bypass grafting, January of 1993. 2.Sinoatrial cristhian disease, status post dual-chamber pacemaker insertion original insertion November of 2008 generator exchange January 23, 2019.TopDown ConservationtronicModel: [place] [id number] 3.Hypertension, controlled. 4.Hyperlipidemia, controlled. 5.Past hepatic enzyme elevation with higher dose statin therapies. 6.Paroxysmal atrial fibrillation 7.Macrocytosis/chronic anemia followed chronically by Hematology Aranesp injection Allergies Allergy/AdvReac Type Severity Reaction Status Date / Time cephalexin Allergy Severe Rash Unverified 02/10/21 11:16 lisinopril Allergy Unknown Rxn not Verified 02/10/21 11:16 stated niacin Allergy Unknown Reaction Verified 02/10/21 11:16 not stated Home Medications Medication Instructions Recorded Confirmed Type atorvastatin 20 mg tablet (Lipitor) 20 mg PO Q2D 01/21/19 02/10/21 History dorzolamide 22.3 mg-timolol 6.8 1 drp OPB BID 01/21/19 02/10/21 History mg/mL eye drops glucosamine-chondroitin 250 mg-200 1 tab PO QAM 01/21/19 02/10/21 History mg tablet (Osteo Bi-Flex) vitamins A,C,W-zfrp-zfkcyx 14,320 1 cap PO QAM 12/17/20 02/10/21 History unit-226 mg-200 unit capsule (PreserVision AREDS) albuterol sulfate 90 mcg/actuation 2 puff INHALATION Q4H PRN 02/10/21 02/10/21 History aerosol inhaler apixaban 5 mg tablet (Eliquis) 5 mg PO BID 02/10/21 02/10/21 History ipratropium 0.5 mg-albuterol 3 mg 3 ml INHALATION QID 02/10/21 02/10/21 History (2.5 mg base)/3 mL nebulization soln latanoprost 0.005 % eye drops 1 drp OPB HS 02/10/21 02/10/21 History metoprolol succinate 25 mg 25 mg PO BID 02/10/21 02/10/21 History tablet,extended release 24 hr mirtazapine 15 mg tablet 15 mg PO HS 02/10/21 02/10/21 History umeclidinium 62.5 mcg/actuation 1 inh INHALATION DAILY 02/10/21 02/10/21 History blister powder for inhalation (Incruse Ellipta) Patient History Medical History CAD (coronary artery disease) History of nephrolithiasis History of prostate cancer HTN (hypertension) Hyperlipidemia Macular degeneration MDS (myelodysplastic syndrome) Paroxysmal A-fib Tachy-ruben syndrome Surgical History History of prostatectomy 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, battery recently replaced 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 Family History Mother Coronary heart disease Social History Smoking Status: Never smoker Second Hand Exposure: Yes (not currently); Hx Alcohol Use: No Hx Substance Use: No Preferred Language: Yemeni Communication Ability: Effective Soft Sugar 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 All other 10 point review of systems are negative. Physical Exam Physical Exam: General: no acute distress and stated age Head: normocephalic, no masses, lesions, tenderness or abnormalities Eyes: conjunctiva are pink and non-injected, sclera clear Neck: supple, no adenopathy, no bruits, normal jugular venous pulse, no hepatojugular reflux Chest: normal shape and normal respiratory effort Lungs: clear to auscultation and percussion Cardiac Exam: - irregular rate & rhythm, no murmurs gallops or rubs - normal S1, normal S2 Pulses: 2(+) throughout Abdomen: abdomen soft, non-tender, no abnormal masses and no hepatosplenomegaly Musculoskeletal: no gait disturbance, no joint inflammation, no deforming arthritis Extremities: no edema and no cyanosis Neuro: grossly normal exam Results & Data ([facility]) Vital Signs (Past 12 Hours) Vital Signs Temp Pulse Pulse Resp BP BP Pulse Ox 02/12/21 07:29 93 H 18 97 02/12/21 06:51 93 H 101/63 02/12/21 05:01 144 H 126/84 02/12/21 04:22 144 H 126/89 02/12/21 03:41 133 H 02/12/21 03:31 36.7 C 133 H 18 129/76 97 02/12/21 02:20 36.6 C 83 20 120/69 97 02/12/21 01:09 66 16 98 02/11/21 22:45 36.5 C 77 18 123/70 94 02/11/21 22:11 84 22 94 Laboratory Results Laboratory Results - last 24 hr 02/11/21 02/12/21 02/12/21 12:51 06:35 06:35 WBC 9.02 RBC 3.01 L Hgb 10.2 L Hct 31.5 L MCV 104.7 H MCH 33.9 MCHC 32.4 RDW Std Deviation 72.7 H RDW Coeff of Ganga 19.9 H Plt Count 228 MPV 10.5 H Absolute Nucleated RBC 0.13 H Nucleated RBC % (auto) 1.4 Sodium 140 Potassium 4.4 D Chloride 103 Carbon Dioxide 36 H Anion Gap 1.0 L BUN 25 H Creatinine 0.78 Est Cr Clr Drug Dosing 61.4 Est GFR ( Amer) 94.7 Est GFR (Non-Af Amer) 81.7 BUN/Creatinine Ratio 31.6 H Glucose 90 Calcium 8.3 L Total Bilirubin 0.8 AST 10 L ALT 18 Alkaline Phosphatase 67 Total Protein 5.8 L Albumin 3.2 L Globulin 2.6 Albumin/Globulin Ratio 1.2 Xayve-9-Yainlbcemip Pending Alpha-1-AT Phenotype Pending Medications Administered Current Inpatient Medications Acetaminophen (Acetaminophen 325 Mg Tab) 650 mg PO Q4H PRN PRN Reason: Moderate Pain Stop: 03/12/21 13:08 Azithromycin (Azithromycin 250 Mg Tab) 250 mg PO [facility] Stop: 02/13/21 08:59 Last Admin: 02/12/21 08:06 Dose: 250 mg Documented by: Docusate Sodium (Docusate Sodium Syrup 100 Mg/10 Ml Udc) 100 mg PO BID [facility] Stop: 03/14/21 08:59 Last Admin: 02/12/21 10:20 Dose: 100 mg Documented by: Guaifenesin (Guaifenesin 600 Mg Tabcr) 1,200 mg PO Q12 [facility] Stop: 03/12/21 20:59 Last Admin: 02/12/21 08:06 Dose: 1,200 mg Documented by: Diltiazem HCl 125 mg/ Dextrose 125 mls @ 10 mls/hr IV .[id number] [facility]; Protocol Stop: 03/14/21 04:44 Last Titration: 02/12/21 08:06 Dose: 10 mg/hr, 10 mls/hr Documented by: Levalbuterol HCl (Levalbuterol Hcl 1.25 Mg/3 Ml Neb) 1.25 mg INH Q6R [facility] Stop: 03/12/21 18:59 Last Admin: 02/12/21 07:29 Dose: 1.25 mg Documented by: Multivitamins/Minerals (Cerovite Adv Formula Tab) 1 tab PO QAM [facility] Stop: 03/13/21 08:59 Last Admin: 02/12/21 08:06 Dose: 1 tab Documented by: Ondansetron HCl (Ondansetron Inj 2 Mg/Ml 2 Ml Vial) 4 mg IV Q4H PRN PRN Reason: Nausea And Vomiting Stop: 03/12/21 13:08 Polyethylene Glycol (Polyethylene (Miralax) 17 Gm Pack) 17 gm PO DAILY PRN PRN Reason: Constipation Stop: 03/14/21 07:51 Last Admin: 02/12/21 10:20 Dose: 17 gm Documented by: Umeclidinium/Vilanterol (Umeclidinium/Vilanterol 62.5/25mcg 7 Puffs/Inhaler) 1 puffs INH DAILY DUC Stop: 03/12/21 17:29 Last Admin: 02/12/21 08:06 Dose: 1 puffs Documented by:
[2021-02-12] MEDS: DOCUSATE SODIUM SYRUP 100 MG/10 ML UDC PO SCH ×2 (10:20→21:10)
--- NOTE | 2021-02-12 10:25 | Electrocardiogram Report ---
Test Reason : Blood Pressure : / mmHG Vent. Rate : 143 BPM Atrial Rate : 227 BPM P-R Int : 000 ms QRS Dur : 088 ms QT Int : 286 ms P-R-T Axes : 000 060 145 degrees QTc Int : 441 ms Atrial fibrillation with rapid ventricular response with premature ventricular or aberrantly conducte d complexes Marked ST abnormality, possible anterior subendocardial injury Abnormal ECG When compared with ECG of 10-FEB-2021 09:28, Atrial fibrillation has replaced Electronic atrial pacemaker Vent. rate has increased BY [address] now depressed in Lateral leads Nonspecific T wave abnormality now evident in Inferior leads T wave inversion now evident in Anterolateral leads Confirmed by Abdulaziz Vital ([id number]) on 02/12/2021 10:25:32 AM Referred By: REFERRED SELF Confirmed By:Israel Vital
--- NOTE | 2021-02-12 13:34 | Pulmonology Progress Note ---
Date of Service February 12, 2021 Assessment & Plan (1) Asbestos-induced pleural plaque: (2) Acute hypoxemic respiratory failure: (3) Shortness of breath: (4) Abnormal PFTs (pulmonary function tests): Plan: Spirometry 02/09/2021 personally reviewed: Nonspecific spirometry with decrease in FVC and FEV1, no obstructive lung dysfunction FVC 2.09 L, 62%, FEV1 1.66 L, 67%, FEV1/FVC 80% CT chest 12/27/2020 personally reviewed: Centrilobular emphysema appreciated, left lower lobe superior segment perifissural pulmonary nodule, Pleural plaques appreciated bilaterally especially right anterior and left lower posterior aspect No mediastinal lymphadenopathy Chest x-ray 02/10/2021 personally viewed: Portable film, hyperinflated, bilateral costophrenic and cardiophrenic angles are clean, increased cardiac silhouette, no clear lung infiltrate appreciated. 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 He does have restriction this could be from asbestos plaques As per the hypoxia usually when the patient is sleeping or dozing off. YANIQUE or even central apneas might be one of the reasons why he gets hypoxic when he is asleep --> recommend outpatient in lab sleep study 2D echo done a week ago at [place] showed ejection fraction of 65%, grade 1 diastolic dysfunction Nocturnal pulse oximetry 02/10/2021: Showed significant hypoxia going as low as 45% Patient will need at least 2 L nasal cannula at night Follow-up alpha-1 antitrypsin level Central sleep apneas might be playing a role I would recommend BiPAP 10/6 nightly while in the hospital with backup rate of 12. 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 It may contain grammatical, syntax or spelling errors.Any formal questions or concerns about the content, text or information contained within the body of this dictation should be directly addressed to the provider for clarification. Admission and Anticipated Discharge Date Admission Date: February 10, 2021 Subjective Patient seen and examined at bedside. No acute distress, no adverse events overnight. Review of Systems Review of Systems: All systems reviewed & are unremarkable except as noted in Subjective Physical Exam Physical Exam: Constitutional: No acute distress, frail-appearing HEENT: EOMI, PERRLA Respiratory system: Decreased air entry bilaterally, no wheeze, rhonchi, no crackles CVS: S1-S2 positive, positive 2 out of 6 systolic murmur noted best at the apex Abdomen: Soft, nontender, nondistended, positive bowel sounds x4 Extremities: +2 pulses bilaterally radialis/ dorsalis pedis, no cyanosis, no edema no clubbing Neuro: Awake alert oriented x3 Psych: Normal mood and affect G/U: No Adamson Skin: no rashes, warm and dry Lymphatic: no cervical or axillary lymphadenopathy Results & Data Results & Data ([facility]) Vital Signs (Past 12 Hours) Vital Signs Temp Pulse Pulse Resp BP BP Pulse Ox 02/12/21 13:00 02/12/21 12:53 88 16 92 02/12/21 11:33 36.7 C 99 H 18 113/64 92 02/12/21 07:29 93 H 18 97 02/12/21 07:00 89 02/12/21 06:51 93 H 101/63 02/12/21 05:01 144 H 126/84 02/12/21 04:22 144 H 126/89 02/12/21 03:41 133 H 02/12/21 03:31 36.7 C 133 H 18 129/76 97 02/12/21 02:20 36.6 C 83 20 120/69 97 Pulse Ox 02/12/21 13:00 98 02/12/21 12:53 02/12/21 11:33 02/12/21 07:29 02/12/21 07:00 02/12/21 06:51 02/12/21 05:01 02/12/21 04:22 02/12/21 03:41 02/12/21 03:31 02/12/21 02:20 02/12/21 06:35 02/12/21 06:35 PG Care Time/CCT Total # of Minutes Spent Total Time Spent with Patient: Total time spent is greater than 50% in coordination of care (as documented) at patient's floor/unit and/or counseling patient: Coding Level of Care Code 34350 Subseq Hosp Care Lvl 2 Diagnoses Asbestos-induced pleural plaque J92.0 Acute hypoxemic respiratory failure J96.01 Shortness of breath R06.02 Abnormal PFTs (pulmonary function tests) R94.2
--- NOTE | 2021-02-12 15:53 | Hospitalist Progress Note ---
Date of Service February 11, 2021 Assessment & Plan (1) Acute hypoxemic respiratory failure: Plan: -Recently admitted in [facility] from 01/30-02/02 for similar presentation. Prior to this admitted 12/27-12/28, and then in the ER on 12/17/20. -COVID-19 negative on admission -CXR reviewed without evidence of congestive failure, no airspace consolidation or large pleural effusion, hyperinflated, no clear lung infiltrate appreciated -in ER Given Solu-Medrol 60 mg x 1 and 3 nebulizer treatments in the ER, currently on 2L with O2 sats at 99%. He does not wear oxygen at baseline at home prior to this. -Check procal -On 02/09 spirometry were conducted, Nonspecific spirometry with decrease in FVC and FEV1, no obstructive lung dysfunction FVC 2.09 L, 62%, FEV1 1.66 L, 67%, FEV1/FVC 80% patient has restrictive pattern rather than obstructive pattern Patient will need outpt PFTs, and oupt in lab sleep study -Pulmonary medicine consulted- pt has had difficulty establishing as outpatient, increase hospitalizations for acute hypoxic respiratory failure, asbestos plaque, had spirometry done just prior to current admission. mucinex, flutter valve, Anoro Obtain nocturnal pulse ox study - Empirically give azithromycin PO, may also help with anti-inflammatory effects. - Continue Solu-Medrol 40 mg BID, neb treatments, O2 as needed, consider noc ox/ambulatory pulse ox prior to discharge. (2) Asbestos-induced pleural plaque: Plan: -History of such -spirometry as above recently completed -Pulm consulted - will require continuation of care after discharge (3) CAD (coronary artery disease): Plan: -Echo completed on 01/31 showing an EF of 60 to 64%, no WMA, left ventricular diastolic dysfunction, mild aortic stenosis, mild elevated right ventricular pressure -Troponin 0.047, was similarly elevated during last admission at [facility], high sensitives trop was 40 and 38. Now trended down - No chest pain, heaviness, palpitations, etc, so very unlikely ACS. - Follows with Dr. Noonan, cardiology, as outpatient for pacemaker. Pacemaker inserted about 12 yrs ago, battery replaced in 2019. (4) Paroxysmal A-fib: Plan: -Was previously placed on Eliquis during his last hospital stay however due to cost the patient is being transitioned to Coumadin, plans to follow with [facility] as an outpatient (end of February) (5) MDS (myelodysplastic syndrome): Plan: -Follows with oncology as outpt, MCV = 105.4 (6) HTN (hypertension): Plan: -Continue metoprolol succinate 25 mg BID - BP stable DVT ppx: - scds CODE: DNR/DNI Dispo: From home, likely to remain in the hospital x 1-2 days Admission and Anticipated Discharge Date Admission Date: February 10, 2021 Subjective Patient seen in follow-up of shortness of breath, acute respiratory failure with hypoxia Currently sitting in the chair, in no acute distress, on nasal cannula Overnight significant hypoxia noted Currently is able to answer questions appropriately, but only answers in short sentences at the bedside, updated Pt feels comfortable, denies chest pain, increased shortness of breath, fevers or chills, dizziness or lightheadedness Review of Systems Review of Systems: All systems reviewed & are unremarkable except as noted in Subjective Physical Exam Physical Exam: General: awake, alert, no apparent distress, + fatigued, + thin, BMI 22 Head: Normocephalic, atraumatic ENT: PERRL, EOMI, no pharyngeal exudate, mucous membranes dry Chest: Diminished breath sounds, on 2 via NC, primarily mouth breathing, no rhonchi, wheezing or crackles Cardiac: +s1, s2, + systolic murmur, no JVD Abdominal: + Bowel sounds, soft, nondistended, nontender to palpation Extremities: Normal inspection, no peripheral edema or erythema, calves nontender to palpation Psych: Normal mood and affect Neuro: AAO x 3, strength intact bilaterally and rated 5/5, no motor deficits, speech is clear, no peripheral sensory deficits Results & Data Results & Data ([facility]) Vital Signs (Past 12 Hours) Vital Signs
[2021-02-12] MEDS ORDERED: LEVALBUTEROL HCL 1.25 MG/3 ML NEB INH PRN (18:14)
[2021-02-12] MEDS ORDERED: ATORVASTATIN 20 MG TAB PO SCH (19:00)
[2021-02-12] MEDS ORDERED: MIRTAZAPINE TAB 15 MG TAB PO SCH (21:00)
[2021-02-12] MEDS ORDERED: LATANOPROST 0.005% OP SOLN 2.5 ML BTL OPB SCH (21:00)
[2021-02-12] MEDS: METOPROLOL SUCC 25MG EXT REL TAB PO SCH (21:12)
[2021-02-12] MEDS: APIXABAN 5 MG TABLET PO SCH (21:12)
[2021-02-12] MEDS: DORZOLAMIDE/TIMOLOL 22.3/6.8MG/ML 10 ML BTL OPB SCH (21:14)
--- NOTE | 2021-02-12 23:46 | Hospitalist Progress Note ---
Date of Service February 12, 2021 Assessment & Plan (1) Acute hypoxemic respiratory failure: Plan: -Recently admitted in [facility] from 01/30-02/02 for similar presentation. Prior to this admitted 12/27-12/28, and then in the ER on 12/17/20. -COVID-19 negative on admission -CXR reviewed without evidence of congestive failure, no airspace consolidation or large pleural effusion, hyperinflated, no clear lung infiltrate appreciated -in ER Given Solu-Medrol 60 mg x 1 and 3 nebulizer treatments in the ER, currently on 2L with O2 sats at 99%. He does not wear oxygen at baseline at home prior to this. -Check procal -Pulmonary medicine consulted- pt has had difficulty establishing as outpatient, increase hospitalizations for acute hypoxic respiratory failure, asbestos plaque, had spirometry done just prior to current admission. -On 02/09 spirometry were conducted, Nonspecific spirometry with decrease in FVC and FEV1, no obstructive lung dysfunction FVC 2.09 L, 62%, FEV1 1.66 L, 67%, FEV1/FVC 80% patient has restrictive pattern rather than obstructive pattern Patient will need outpt PFTs Nocturnal pulse ox study obtained, shows significant hypoxia at night - will need at least 2 L of oxygen via nasal cannula at night, also recommend in lab sleep study, patient may have YANIQUE/central sleep apnea Also recommend BiPAP at night however patient is not tolerating BiPAP Alpha-1 antitrypsin level - pending Continue mucinex, flutter valve, Anoro, can stop prednisone Continue azithromycin PO, may also help with anti-inflammatory effects. (2) Asbestos-induced pleural plaque: Plan: -History of such -spirometry as above recently completed -Pulm consulted - will require continuation of care after discharge (3) CAD (coronary artery disease): Plan: -Echo completed on 01/31 showing an EF of 60 to 64%, no WMA, left ventricular diastolic dysfunction, mild aortic stenosis, mild elevated right ventricular pressure -Troponin 0.047, was similarly elevated during last admission at [facility], high sensitives trop was 40 and 38. Now trended down - No chest pain, heaviness, palpitations, etc, so very unlikely ACS. - Follows with Dr. Noonan, cardiology, as outpatient for pacemaker. Pacemaker inserted about 12 yrs ago, battery replaced in 2019. Discussed w/ pulmonary medicine, will obtain echo with bubble study here (4) Paroxysmal A-fib: Plan: -Was started on Eliquis during his last hospital stay however due to cost the patient is being transitioned to Coumadin, plans to follow with [facility]madin clinic as an outpatient (end of February) -cont. Eliquis - elev. HR overnight and was started on cardizem, cardiology also following, now HR controlled (5) MDS (myelodysplastic syndrome): Plan: -Follows with oncology as outpt, MCV = 105.4 (6) HTN (hypertension): Plan: -Continue metoprolol succinate 25 mg BID - BP stable DVT ppx: - scds CODE: DNR/DNI Dispo: From home, likely to remain in the hospital x 1-2 days Admission and Anticipated Discharge Date Admission Date: February 10, 2021 Subjective Patient seen in follow-up of shortness of breath, acute respiratory failure with hypoxia Currently laying in bed in no acute distress, on room air breathing comfortably He seems little confused, does not remember that I am his physician, thinks I gave him some "bad shot", also says that he will not use BiPAP, he is uncomfortable wearing it By nursing staff he only used it for little bit of time and then was more agitated Currently pt feels comfortable, denies chest pain, increased shortness of breath, fevers or chills, dizziness or lightheadedness Review of Systems Review of Systems: All systems reviewed & are unremarkable except as noted in Subjective Physical Exam Physical Exam: General: awake, alert, no apparent distress, + fatigued, + thin Head: Normocephalic, atraumatic ENT: PERRL, EOMI, no pharyngeal exudate, mucous membranes dry Chest: Diminished breath sounds, no rhonchi, wheezing or crackles, currently on RA Cardiac: +s1, s2, + systolic murmur, no JVD Abdominal: + Bowel sounds, soft, nondistended, nontender to palpation Extremities: Normal inspection, no peripheral edema or erythema, calves nontender to palpation Psych: Normal mood and affect Neuro: AAO x 3, strength intact bilaterally and rated 5/5, no motor deficits, speech is clear, no peripheral sensory deficits Results & Data Results & Data ([facility]) Vital Signs (Past 12 Hours) Vital Signs Temp Pulse Pulse Resp BP Pulse Ox Pulse Ox 02/12/21 22:31 36.6 C 61 20 146/71 H 97 02/12/21 19:48 36.6 C 88 16 149/44 H 93 02/12/21 15:54 36.3 C L 91 H 20 126/63 94 02/12/21 15:00 94 H 02/12/21 13:00 98 02/12/21 12:53 88 16 92 Laboratory Results 02/12/21 02/12/21 Range/Units 06:35 06:35 WBC 9.02 (4.8-10.8) K/uL RBC 3.01 L (4.7-6.1) M/uL Hgb 10.2 L (14.0-18.0) g/dL Hct 31.5 L (42-52) % MCV 104.7 H (80-100) fL MCH 33.9 (25-34) pg MCHC 32.4 (32-36) g/dL RDW Std Deviation 72.7 H (36.4-46.3) fL RDW Coeff of Ganga 19.9 H (11.5-14.5) % Plt Count 228 (130-400) K/uL MPV 10.5 H (7.4-10.4) fL Absolute Nucleated RBC 0.13 H (0-0) K/uL Nucleated RBC % (auto) 1.4 % Sodium 140 (136-145) mmol/L Potassium 4.4 D (3.5-5.1) mmol/L Chloride 103 (98-107) mmol/L Carbon Dioxide 36 H (21-32) mmol/L Anion Gap 1.0 L (3-11) BUN 25 H (7-18) mg/dl Creatinine 0.78 (0.6-1.4) mg/dl Est Cr Clr Drug Dosing 61.4 ml/min Est GFR ( Amer) 94.7 ml/min Est GFR (Non-Af Amer) 81.7 ml/min BUN/Creatinine Ratio 31.6 H (10-20) Glucose 90 (70-99) mg/dl Calcium 8.3 L (8.5-10.1) mg/dl Total Bilirubin 0.8 (0.2-1) mg/dl AST 10 L (15-37) U/L ALT 18 (12-78) U/L Alkaline Phosphatase 67 (45-117) U/L Total Protein 5.8 L (6.4-8.2) gm/dl Albumin 3.2 L (3.4-5.0) gm/dl Globulin 2.6 (2.5-4.0) gm/dl Albumin/Globulin Ratio 1.2 (0.9-2) Medications Administered Current Inpatient Medications Acetaminophen (Acetaminophen 325 Mg Tab) 650 mg PO Q4H PRN PRN Reason: Moderate Pain Stop: 03/12/21 13:08 Apixaban (Apixaban 5 Mg Tablet) 5 mg PO BID [facility] Stop: 03/14/21 18:59 Last Admin: 02/12/21 21:12 Dose: 5 mg Documented by: Atorvastatin Calcium (Atorvastatin 20 Mg Tab) 20 mg PO Q2D@2100 [facility] Stop: 03/14/21 18:59 Last Admin: 02/12/21 21:12 Dose: 20 mg Documented by: Azithromycin (Azithromycin 250 Mg Tab) 250 mg PO QAM [facility] Stop: 02/13/21 08:59 Last Admin: 02/12/21 08:06 Dose: 250 mg Documented by: Docusate Sodium (Docusate Sodium Syrup 100 Mg/10 Ml Udc) 100 mg PO BID [facility] Stop: 03/14/21 08:59 Last Admin: 02/12/21 21:10 Dose: Not Given Documented by: Dorzolamide/Timolol (Dorzolamide/Timolol 22.3/6.8mg/Ml 10 Ml Btl) 1 drops OPB BID [facility] Stop: 03/14/21 20:59 Last Admin: 02/12/21 21:14 Dose: 1 drops Documented by: Guaifenesin (Guaifenesin 600 Mg Tabcr) 1,200 mg PO Q12 [facility] Stop: 03/12/21 20:59 Last Admin: 02/12/21 21:14 Dose: 1,200 mg Documented by: Diltiazem HCl 125 mg/ Dextrose 125 mls @ 5 mls/hr IV .Q24H [facility]; Protocol Stop: 03/14/21 04:44 Last Titration: 02/12/21 22:22 Dose: 5 mg/hr, 5 mls/hr Documented by: Latanoprost (Latanoprost 0.005% Op Soln 2.5 Ml Btl) 1 drops OPB HS [facility] Stop: 03/14/21 20:59 Last Admin: 02/12/21 21:14 Dose: 1 drops Documented by: Levalbuterol HCl (Levalbuterol Hcl 1.25 Mg/3 Ml Neb) 1.25 mg INH Q6R PRN PRN Reason: Shortness Of Breath Or Wheezing Stop: 03/12/21 18:59 Metoprolol Succinate (Metoprolol Succ 25mg Ext Rel Tab) 25 mg PO BID [facility] Stop: 03/14/21 18:59 Last Admin: 02/12/21 21:12 Dose: 25 mg Documented by: Mirtazapine (Mirtazapine Tab 15 Mg Tab) 15 mg PO HS [facility] Stop: 03/14/21 20:59 Last Admin: 02/12/21 21:14 Dose: 15 mg Documented by: Multivitamins/Minerals (Cerovite Adv Formula Tab) 1 tab PO QAM [facility] Stop: 03/13/21 08:59 Last Admin: 02/12/21 08:06 Dose: 1 tab Documented by: Ondansetron HCl (Ondansetron Inj 2 Mg/Ml 2 Ml Vial) 4 mg IV Q4H PRN PRN Reason: Nausea And Vomiting Stop: 03/12/21 13:08 Polyethylene Glycol (Polyethylene (Miralax) 17 Gm Pack) 17 gm PO DAILY PRN PRN Reason: Constipation Stop: 03/14/21 07:51 Last Admin: 02/12/21 10:20 Dose: 17 gm Documented by: Umeclidinium/Vilanterol (Umeclidinium/Vilanterol 62.5/25mcg 7 Puffs/Inhaler) 1 puffs INH DAILY [facility] Stop: 03/12/21 17:29 Last Admin: 02/12/21 08:06 Dose: 1 puffs Documented by:
[2021-02-13 05:14] LABS: Hematocrit (blood only) 33.2 % (42-52); Hemoglobin 10.5 g/dL (14.0-18.0); Mean Corpuscular Hemoglobin 33.8 pg (25-34); Mean Corpuscular Hgb Conc 31.6 g/dL (32-36); Mean Corpuscular Volume 106.8 fL (80-100); Mean Platelet Volume 10.2 fL (7.4-10.4); Nucleated RBC # (auto) 0.14 K/uL (0-0); Nucleated RBC % (auto) 1.6 %; Platelet Count 245 K/uL (130-400); RDW Coefficient of Variation 20.3 % (11.5-14.5); Red Blood Count 3.11 M/uL (4.7-6.1); White Blood Count 8.28 K/uL (4.8-10.8)
[2021-02-13 05:49] LABS: Albumin Level 3.2 gm/dl (3.4-5.0); BUN Creatinine Ratio 33.8 (10-20); Calcium 8.1 mg/dl (8.5-10.1); Creatinine Clr Calc Pharmacy 72.6 ml/min; Est GFR (African American) 101.5 ml/min; Est GFR (Non-African American) 87.5 ml/min; Magnesium 2.3 mg/dl (1.8-2.4); Potassium 4.7 mmol/L (3.5-5.1)
[2021-02-13 05:51] LABS: Albumin Globulin Ratio 1.2 (0.9-2); Bilirubin,Total 0.8 mg/dl (0.2-1); Globulin 2.7 gm/dl (2.5-4.0); Phosphorus 4.1 mg/dl (2.5-4.9); Total Protein 5.9 gm/dl (6.4-8.2)
[2021-02-13] MEDS: METOPROLOL SUCC 25MG EXT REL TAB PO SCH (09:08)
[2021-02-13] MEDS: APIXABAN 5 MG TABLET PO SCH (09:08)
[2021-02-13] MEDS: DOCUSATE SODIUM SYRUP 100 MG/10 ML UDC PO SCH (09:08)
[2021-02-13] MEDS: guaiFENesin 600 MG TABCR PO SCH (09:09)
[2021-02-13] MEDS: CEROVITE ADV FORMULA TAB PO SCH (09:09)
[2021-02-13] MEDS: UMECLIDINIUM/VILANTEROL 62.5/25MCG 7 PUFFS/INHALER INH SCH (09:09)
[2021-02-13] MEDS: DORZOLAMIDE/TIMOLOL 22.3/6.8MG/ML 10 ML BTL OPB SCH (09:09)
--- NOTE | 2021-02-13 09:14 | Hospitalist Progress Note ---
Date of Service February 13, 2021 Assessment & Plan (1) Acute hypoxemic respiratory failure: Plan: -Recently admitted in [facility] from 01/30-02/02 for similar presentation. Prior to this admitted 12/27-12/28, and then in the ER on 12/17/20. -COVID-19 negative on admission -CXR reviewed without evidence of congestive failure, no airspace consolidation or large pleural effusion, hyperinflated, no clear lung infiltrate appreciated -in ER Given Solu-Medrol 60 mg x 1 and 3 nebulizer treatments in the ER, currently on 2L with O2 sats at 99%. He does not wear oxygen at baseline at home prior to this. -Procal negative -Pulmonary medicine consulted- pt has had difficulty establishing as outpatient, increase hospitalizations for acute hypoxic respiratory failure, asbestos plaque, had spirometry done just prior to current admission. -On 02/09 spirometry were conducted, Nonspecific spirometry with decrease in FVC and FEV1, no obstructive lung dysfunction FVC 2.09 L, 62%, FEV1 1.66 L, 67%, FEV1/FVC 80% patient has restrictive pattern rather than obstructive pattern Patient will need outpt PFTs Nocturnal pulse ox study obtained, shows significant hypoxia at night - will need at least 2 L of oxygen via nasal cannula at night, also recommend in lab sleep study, patient may have YANIQUE/central sleep apnea Also recommend BiPAP at night however patient is not tolerating BiPAP well at this time Alpha-1 antitrypsin level - pending Continue mucinex, flutter valve, Anoro, can stop prednisone Continue azithromycin PO, may also help with anti-inflammatory effects. 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, high sensitives trop was 40 and 38. Now trended down - No chest pain, heaviness, palpitations, etc, so very unlikely ACS. - Follows with Dr. Noonan, cardiology, as outpatient for pacemaker. Pacemaker inserted about 12 yrs ago, battery replaced in 2019. Discussed w/ pulmonary medicine, will obtain echo with bubble study here Current echo: Aortic valve is calcified. Mild to moderate valvular aortic stenosis. There is aortic root sclerosis/calcification. Moderate aortic regurg. LV is normal in size. There is mild concentric LVH. EF 55 to 60%. RV systolic function is normal. LA is moderately dilated. RA size is normal. There is mild mitral regurg. There is mild tricuspid regurg. No ASD detected PFO not assessed. (4) Paroxysmal A-fib: Plan: -Was started on Eliquis during his last hospital stay however due to cost the patient is being transitioned to Coumadin, plans to follow with [facility], Coumadin clinic as an outpatient (end of February) -cont. Eliquis - elev. HR overnight -pt in Afib, and was started on cardizem, cardiology also following, now HR controlled -Converted back to normal sinus rhythm, heart rate controlled (5) MDS (myelodysplastic syndrome): Plan: -Follows with oncology as outpt, MCV = 105.4 Severe particularly malnutrition BMI 21 Reportedly lost a lot of weight, about 50 pounds in a year Patient is very thin, possibly secondary to MDS Dietitian consulted (6) HTN (hypertension): Plan: -Continue metoprolol succinate 25 mg BID - BP stable DVT ppx: - scds CODE: DNR/DNI Dispo: From home, plan [facility] Admission and Anticipated Discharge Date Admission Date: February 10, 2021 Subjective Patient seen in follow-up of shortness of breath, acute respiratory failure with hypoxia Currently sitting up in chair, in no acute distress, on room air breathing comfortably He will not use BiPAP, he is uncomfortable wearing it Currently pt feels comfortable, denies any chest pain, increased shortness of breath, fevers or chills, dizziness or lightheadedness Review of Systems Review of Systems: All systems reviewed & are unremarkable except as noted in Subjective Physical Exam Physical Exam: General: awake, alert, no apparent distress, + fatigued, + thin Head: Normocephalic, atraumatic ENT: PERRL, EOMI, no pharyngeal exudate, mucous membranes dry Chest: Diminished breath sounds, no rhonchi, wheezing or crackles, currently on RA Cardiac: +s1, s2, regular, + systolic murmur, no JVD Abdominal: + Bowel sounds, soft, nondistended, nontender to palpation Extremities: Normal inspection, no peripheral edema or erythema, calves nontender to palpation Psych: Normal mood and affect Neuro: AAO x 3, strength intact bilaterally and rated 5/5, no motor deficits, speech is clear, no peripheral sensory deficits Results & Data Results & Data ([facility]) Vital Signs (Past 12 Hours) Vital Signs Temp Pulse Pulse Resp BP Pulse Ox 02/13/21 07:31 36.3 C L 59 L 18 107/65 90 02/13/21 07:00 81 02/13/21 04:00 36.7 C 60 18 116/63 98 02/13/21 00:38 60 02/12/21 22:31 36.6 C 61 20 146/71 H 97 Laboratory Results 02/13/21 02/13/21 Range/Units 05:05 05:05 WBC 8.28 (4.8-10.8) K/uL RBC 3.11 L (4.7-6.1) M/uL Hgb 10.5 L (14.0-18.0) g/dL Hct 33.2 L (42-52) % MCV 106.8 H (80-100) fL MCH 33.8 (25-34) pg MCHC 31.6 L (32-36) g/dL RDW Std Deviation 76.0 H (36.4-46.3) fL RDW Coeff of Ganga 20.3 H (11.5-14.5) % Plt Count 245 (130-400) K/uL MPV 10.2 (7.4-10.4) fL Absolute Nucleated RBC 0.14 H (0-0) K/uL Nucleated RBC % (auto) 1.6 % Sodium 140 (136-145) mmol/L Potassium 4.7 (3.5-5.1) mmol/L Chloride 104 (98-107) mmol/L Carbon Dioxide 37 H (21-32) mmol/L Anion Gap -1.0 L (3-11) BUN 22 H (7-18) mg/dl Creatinine 0.66 (0.6-1.4) mg/dl Est Cr Clr Drug Dosing 72.6 ml/min Est GFR ( Amer) 101.5 ml/min Est GFR (Non-Af Amer) 87.5 ml/min BUN/Creatinine Ratio 33.8 H (10-20) Glucose 96 (70-99) mg/dl Calcium 8.1 L (8.5-10.1) mg/dl Phosphorus 4.1 (2.5-4.9) mg/dl Magnesium 2.3 (1.8-2.4) mg/dl Total Bilirubin 0.8 (0.2-1) mg/dl AST 15 (15-37) U/L ALT 17 (12-78) U/L Alkaline Phosphatase 73 (45-117) U/L Total Protein 5.9 L (6.4-8.2) gm/dl Albumin 3.2 L (3.4-5.0) gm/dl Globulin 2.7 (2.5-4.0) gm/dl Albumin/Globulin Ratio 1.2 (0.9-2)
--- NOTE | 2021-02-13 09:55 | Pulmonology Progress Note ---
Date of Service February 13, 2021 Assessment & Plan (1) Asbestos-induced pleural plaque: (2) Acute hypoxemic respiratory failure: (3) Shortness of breath: (4) Abnormal PFTs (pulmonary function tests): Plan: Spirometry 02/09/2021 personally reviewed: Nonspecific spirometry with decrease in FVC and FEV1, no obstructive lung dysfunction FVC 2.09 L, 62%, FEV1 1.66 L, 67%, FEV1/FVC 80% CT chest 12/27/2020 personally reviewed: Centrilobular emphysema appreciated, left lower lobe superior segment perifissural pulmonary nodule, Pleural plaques appreciated bilaterally especially right anterior and left lower posterior aspect No mediastinal lymphadenopathy Chest x-ray 02/10/2021 personally viewed: Portable film, hyperinflated, bilateral costophrenic and cardiophrenic angles are clean, increased cardiac silhouette, no clear lung infiltrate appreciated. 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 He does have restriction this could be from asbestos plaques As per the hypoxia usually when the patient is sleeping or dozing off. YANIQUE or even central apneas might be one of the reasons why he gets hypoxic when he is asleep --> recommend outpatient in lab sleep study 2D echo done a week ago at [place] showed ejection fraction of 65%, grade 1 diastolic dysfunction Nocturnal pulse oximetry 02/10/2021: Showed significant hypoxia going as low as 45% Patient will need at least 2 L nasal cannula at night Follow-up alpha-1 antitrypsin level Central sleep apneas might be playing a role I would recommend BiPAP 10/ nightly while in the hospital with backup rate of 12. --Pleural plaques Likely from previous history of asbestos It is a benign finding --Generalized fatigue and weight loss Patient has lost approximately 50 pounds in the last 1 year Patient does have underlying MDS which might be causing the issue --Nonspecific spirometry I think patient has restrictive pattern rather than obstructive pattern It could be a mixed picture as well I am going to start the patient on Anoro to see if he benefits from it --> continue with Anoro Absolute eosinophil count 200 Plan: Continue with O2 supplementation to keep oxygen saturation 88-92% Follow-up alpha-1 trypsin level Patient will need polysomnography as an outpatient. No further recommendation from pulmonary perspective. Case was discussed with Dr. Lai I also gave the patient's a call for all her questions. Please note the above document was generated using voice recognition software. It may contain grammatical, syntax or spelling errors.Any formal questions or concerns about the content, text or information contained within the body of this dictation should be directly addressed to the provider for clarification. Admission and Anticipated Discharge Date Admission Date: February 10, 2021 Subjective Patient seen and examined at bedside. No acute distress, no adverse events overnight. Patient states he is feeling much better. I did give him BiPAP to be used at night but he used it only for 5 minutes then then put it off. He has been using oxygen at night though. He is using the flutter valve. Not bringing up any phlegm. Denies any chest pain, no shortness of breath Has been afebrile. Review of Systems Review of Systems: All systems reviewed & are unremarkable except as noted in Subjective Physical Exam Physical Exam: Constitutional: No acute distress, frail-appearing HEENT: EOMI, PERRLA Respiratory system: Decreased air entry bilaterally, no wheeze, rhonchi, no crackles CVS: S1-S2 positive, positive 2 out of 6 systolic murmur noted best at the apex Abdomen: Soft, nontender, nondistended, positive bowel sounds x4 Extremities: +2 pulses bilaterally radialis/ dorsalis pedis, no cyanosis, no edema no clubbing Neuro: Awake alert oriented x3 Psych: Normal mood and affect G/U: No Adamson Skin: no rashes, warm and dry Lymphatic: no cervical or axillary lymphadenopathy Results & Data Results & Data ([facility]) Vital Signs (Past 12 Hours) Vital Signs Temp Pulse Pulse Resp BP Pulse Ox 02/13/21 07:31 36.3 C L 59 L 18 107/65 90 02/13/21 07:00 81 02/13/21 04:00 36.7 C 60 18 116/63 98 02/13/21 00:38 60 02/12/21 22:31 36.6 C 61 20 146/71 H 97 02/13/21 05:05 02/13/21 05:05 PG Care Time/CCT Total # of Minutes Spent Total Time Spent with Patient: Total time spent is greater than 50% in coordination of care (as documented) at patient's floor/unit and/or counseling patient: Coding Level of Care Code 39231 Subseq Hosp Care Lvl 2 Diagnoses Asbestos-induced pleural plaque J92.0 Acute hypoxemic respiratory failure J96.01 Shortness of breath R06.02 Abnormal PFTs (pulmonary function tests) R94.2
--- NOTE | 2021-02-13 10:13 | Cardiology Progress Note ---
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 I would continue his current medications. He can be discharged to [facility] per internal medicine. Admission and Anticipated Discharge Date Admission Date: February 10, 2021 Subjective The patient feels well today. He is sitting in a chair comfortably. Review of Systems Review of Systems: Review of Systems: See HPI for pertinent positives. All other 10 point review of systems are negative. Physical Exam Physical Exam: General: no acute distress and stated age Head: normocephalic, no masses, lesions, tenderness or abnormalities Eyes: conjunctiva are pink and non-injected, sclera clear Neck: supple, no adenopathy, no bruits, normal jugular venous pulse, no hepatojugular reflux Chest: normal shape and normal respiratory effort Lungs: clear to auscultation and percussion Cardiac Exam: - regular rate & rhythm, no murmurs gallops or rubs - normal S1, normal S2 Pulses: 2(+) throughout Abdomen: abdomen soft, non-tender, no abnormal masses and no hepatosplenomegaly Musculoskeletal: no gait disturbance, no joint inflammation, no deforming arthritis Extremities: no edema and no cyanosis Neuro: grossly normal exam Results & Data ([facility]) Vital Signs (Past 12 Hours) Vital Signs Temp Pulse Pulse Resp BP Pulse Ox 02/13/21 07:31 36.3 C L 59 L 18 107/65 90 02/13/21 07:00 81 02/13/21 04:00 36.7 C 60 18 116/63 98 02/13/21 00:38 60 02/12/21 22:31 36.6 C 61 20 146/71 H 97 Laboratory Results Laboratory Results - last 24 hr 02/13/21 02/13/21 05:05 05:05 WBC 8.28 RBC 3.11 L Hgb 10.5 L Hct 33.2 L MCV 106.8 H MCH 33.8 MCHC 31.6 L RDW Std Deviation 76.0 H RDW Coeff of Ganga 20.3 H Plt Count 245 MPV 10.2 Absolute Nucleated RBC 0.14 H Nucleated RBC % (auto) 1.6 Sodium 140 Potassium 4.7 Chloride 104 Carbon Dioxide 37 H Anion Gap -1.0 L BUN 22 H Creatinine 0.66 Est Cr Clr Drug Dosing 72.6 Est GFR ( Amer) 101.5 Est GFR (Non-Af Amer) 87.5 BUN/Creatinine Ratio 33.8 H Glucose 96 Calcium 8.1 L Phosphorus 4.1 Magnesium 2.3 Total Bilirubin 0.8 AST 15 ALT 17 Alkaline Phosphatase 73 Total Protein 5.9 L Albumin 3.2 L Globulin 2.7 Albumin/Globulin Ratio 1.2 Medications Administered Current Inpatient Medications Acetaminophen (Acetaminophen 325 Mg Tab) 650 mg PO Q4H PRN PRN Reason: Moderate Pain Stop: 03/12/21 13:08 Apixaban (Apixaban 5 Mg Tablet) 5 mg PO BID [facility] Stop: 03/14/21 18:59 Last Admin: 02/13/21 09:08 Dose: 5 mg Documented by: Atorvastatin Calcium (Atorvastatin 20 Mg Tab) 20 mg PO Q2D@2100 DUC Stop: 03/14/21 18:59 Last Admin: 02/12/21 21:12 Dose: 20 mg Documented by: Docusate Sodium (Docusate Sodium Syrup 100 Mg/10 Ml Udc) 100 mg PO BID DUC Stop: 03/14/21 08:59 Last Admin: 02/13/21 09:08 Dose: 100 mg Documented by: Dorzolamide/Timolol (Dorzolamide/Timolol 22.3/6.8mg/Ml 10 Ml Btl) 1 drops OPB BID DUC Stop: 03/14/21 20:59 Last Admin: 02/13/21 09:09 Dose: 1 drops Documented by: Guaifenesin (Guaifenesin 600 Mg Tabcr) 1,200 mg PO Q12 DUC Stop: 03/12/21 20:59 Last Admin: 02/13/21 09:09 Dose: 1,200 mg Documented by: Latanoprost (Latanoprost 0.005% Op Soln 2.5 Ml Btl) 1 drops OPB HS [facility] Stop: 03/14/21 20:59 Last Admin: 02/12/21 21:14 Dose: 1 drops Documented by: Levalbuterol HCl (Levalbuterol Hcl 1.25 Mg/3 Ml Neb) 1.25 mg INH Q6R PRN PRN Reason: Shortness Of Breath Or Wheezing Stop: 03/12/21 18:59 Metoprolol Succinate (Metoprolol Succ 25mg Ext Rel Tab) 25 mg PO BID [facility] Stop: 03/14/21 18:59 Last Admin: 02/13/21 09:08 Dose: 25 mg Documented by: Mirtazapine (Mirtazapine Tab 15 Mg Tab) 15 mg PO HS [facility] Stop: 03/14/21 20:59 Last Admin: 02/12/21 21:14 Dose: 15 mg Documented by: Multivitamins/Minerals (Cerovite Adv Formula Tab) 1 tab PO QAM [facility] Stop: 03/13/21 08:59 Last Admin: 02/13/21 09:09 Dose: 1 tab Documented by: Ondansetron HCl (Ondansetron Inj 2 Mg/Ml 2 Ml Vial) 4 mg IV Q4H PRN PRN Reason: Nausea And Vomiting Stop: 03/12/21 13:08 Polyethylene Glycol (Polyethylene (Miralax) 17 Gm Pack) 17 gm PO DAILY PRN PRN Reason: Constipation Stop: 03/14/21 07:51 Last Admin: 02/12/21 10:20 Dose: 17 gm Documented by: Umeclidinium/Vilanterol (Umeclidinium/Vilanterol 62.5/25mcg 7 Puffs/Inhaler) 1 puffs INH DAILY [facility] Stop: 03/12/21 17:29 Last Admin: 02/13/21 09:09 Dose: 1 puffs Documented by:
--- NOTE | 2021-02-13 10:36 | Discharge Summary ---
Date of Service February 13, 2021 Admission HPI Per Admitting Provider 85 year old male with history of myelodysplastic syndrome, hypertension, CAD, s/p pacemaker placement, tachy-ruben syndrome, paroxysmal atrial fibrillation, history of asbestos induced pleural plaque, COPD, hx of prostate cancer, severe protein-energy malnutrition who presents for worsening shortness of breath x3 days. He was recently admitted from 01/31/20-02/02/21 at [facility] due to acute respiratory failure with hypoxia. There he required O2 up to 5 L, his Covid test was negative. He was scheduled for outpatient PFTs, and referred to pulmonology but was supposed to see Dr. Desir at [facility] today, however is here in the ER. During his previous hospital stay he was started on Eliquis due to Afib. He has had PAF for the past 12 years per . Anticoagulation with Eliquis costed over $300.00 for the patient, and he does not have insurance, and is unable to travel/hassel, to [place] to the [place]. His PCP decided to switch to Coumadin on 02/08/2021. They have arranged [facility]TM/Coumadin clinic to follow with him once starting coumadin on March 06. , Earnestine, provides the majority of the history as the patient is incredibly tired, and feels weak to even speak. She reports that around 7 PM last evening he began to appear more short of breath and said that he was not feeling well. reports his O2 sats were in the low 80s all night whenever she checked him intermittently. reports that pulmonology, Dr. Desir will be unable to see him until the end of April and is requesting to follow with pulmonology through [facility] if possible. PFTs were completed as an outpatient yesterday prior to all of his symptoms. Patient told his that he was in atrial fibrillation; "I did not feel right", however unable to characterize his symptoms he had that made him feel like he was in this rhythm. Denies any chest pain, palpitations, heaviness or significant shortness of breath currently. He feels better on supplemental O2, which he doesn't wear at baseline. Denies any recent sick contacts, travel, fever, chills or sweats. Patient reports last bowel movement was 2 days ago and that he does intermittently struggle with constipation, but normally is relieved by MiraLAX and occasional Dulcolax tablets. Admission Exam Per Admitting Provider General: awake, alert, no apparent distress, + fatigued, + thin, BMI 22 Head: Normocephalic, atraumatic ENT: PERRL, EOMI, no pharyngeal exudate, mucous membranes dry Chest: Diminished throughout on auscultation, on 2 via NC, primarily mouth breathing, no adventitious breath sounds Cardiac: Regular rate and rhythm, + systolic murmur, no JVD, normal peripheral pulses, good capillary refill Abdominal: NABS x 4 quadrants, soft, nondistended, nontender to palpation, no rebound or guarding Extremities: Normal inspection, no peripheral edema or erythema, calfs nontender to palpation Psych: Normal mood and affect Neuro: AAO x 3, strength intact bilaterally and rated 5/5, no motor deficits, speech is clear, no peripheral sensory deficits Principal Diagnosis Acute hypoxemic respiratory failure Asbestos-induced pleural plaque Nocturnal hypoxia, possible sleep apnea Paroxysmal A-fib MDS Severe protein-calorie malnutrition Discharge Exam General: awake, alert, no apparent distress, + fatigued, + thin Head: Normocephalic, atraumatic ENT: PERRL, EOMI, no pharyngeal exudate, mucous membranes dry Chest: Diminished breath sounds, no rhonchi, wheezing or crackles, currently on RA Cardiac: +s1, s2, regular, + systolic murmur, no JVD Abdominal: + Bowel sounds, soft, nondistended, nontender to palpation Extremities: Normal inspection, no peripheral edema or erythema, calves nontender to palpation Psych: Normal mood and affect Neuro: AAO x 3, strength intact bilaterally and rated 5/5, no motor deficits, speech is clear, no peripheral sensory deficits Discharge Data Allergies Allergy/AdvReac Type Severity Reaction Status Date / Time cephalexin Allergy Severe Rash Unverified 02/10/21 11:16 lisinopril Allergy Unknown Rxn not Verified 02/10/21 11:16 stated niacin Allergy Unknown Reaction Verified 02/10/21 11:16 not stated Consultations 02/10/21 11:35 ED Decision to Admit Stat 02/10/21 12:46 Consult Pulmonology Routine 02/12/21 08:00 Consult Cardiology Routine Hospital Course (1) Acute hypoxemic respiratory failure: -Recently admitted in [facility] from 01/30-02/02 for similar presentation. Prior to this admitted 12/27-12/28, and then in the ER on 12/17/20. -COVID-19 negative on admission -CXR reviewed without evidence of congestive failure, no airspace consolidation or large pleural effusion, hyperinflated, no clear lung infiltrate appreciated -in ER Given Solu-Medrol 60 mg x 1 and 3 nebulizer treatments in the ER, currently on 2L with O2 sats at 99%. He does not wear oxygen at baseline at home prior to this. -Procal negative -Pulmonary medicine consulted- pt has had difficulty establishing as outpatient, increase hospitalizations for acute hypoxic respiratory failure, asbestos plaque, had spirometry done just prior to current admission. -On 02/09 spirometry were conducted, Nonspecific spirometry with decrease in FVC and FEV1, no obstructive lung dysfunction FVC 2.09 L, 62%, FEV1 1.66 L, 67%, FEV1/FVC 80% patient has restrictive pattern rather than obstructive pattern Patient will need outpt PFTs Nocturnal pulse ox study obtained, shows significant hypoxia at night - will need at least 2 L of oxygen via nasal cannula at night, also recommend in lab sleep study, patient may have YANIQUE/central sleep apnea Recommend BiPAP at night however patient is not tolerating BiPAP well at this time Alpha-1 antitrypsin level - pending Continue mucinex, flutter valve, Anoro, can stop prednisone Continue azithromycin PO while inpt, may also help with anti-inflammatory effects. Follow up w/ pulmonary medicine as outpt Plan [facility], pulmonary program (2) Asbestos-induced pleural plaque: -History of such -spirometry as above recently completed -Pulm consulted - will require continuation of care after discharge (3) CAD (coronary artery disease): -Echo completed on 01/31 showing an EF of 60 to 64%, no WMA, left ventricular diastolic dysfunction, mild aortic stenosis, mild elevated right ventricular pressure -Troponin 0.047, was similarly elevated during last admission at [facility], high sensitives trop was 40 and 38. Now trended down - No chest pain, heaviness, palpitations, etc, so very unlikely ACS. - Follows with Dr. Noonan, cardiology, as outpatient for pacemaker. Pacemaker inserted about 12 yrs ago, battery replaced in 2019. Discussed w/ pulmonary medicine, will obtain echo with bubble study here Current echo: Aortic valve is calcified. Mild to moderate valvular aortic stenosis. There is aortic root sclerosis/calcification. Moderate aortic regurg. LV is normal in size. There is mild concentric LVH. EF 55 to 60%. RV systolic function is normal. LA is moderately dilated. RA size is normal. There is mild mitral regurg. There is mild tricuspid regurg. No ASD detected PFO not assessed. (4) Paroxysmal A-fib: -Was started on Eliquis during his last hospital stay however due to cost the patient is being transitioned to Coumadin, plans to follow with MTM, Coumadin clinic as an outpatient (end of February) -cont. Eliquis - elev. HR overnight -pt in Afib, and was started on cardizem, cardiology also following, now HR controlled -Converted back to normal sinus rhythm, heart rate controlled (5) MDS (myelodysplastic syndrome): -Follows with oncology as outpt, MCV = 105.4 Severe protein-calorie malnutrition BMI 21 Reportedly lost a lot of weight, about 50 pounds in a year Patient is very thin, possibly secondary to MDS Dietitian consulted (6) HTN (hypertension): -Continue metoprolol succinate 25 mg BID - BP stable DVT ppx: - scds CODE: DNR/DNI Dispo: From home, plan to [facility] Total Time Total Time Spent Total Time Spent (In Minutes): 40 Discharge Plan Discharge Items Patient Disposition: Transfer Inpatient Rehab Fac Reason For Visit: ACUTE RESP FAILURE W/HYPOXIA Discharge Diagnosis: Acute hypoxemic respiratory failure Asbestos-induced pleural plaque Nocturnal hypoxia, possible sleep apnea Paroxysmal A-fib MDS Severe protein-calorie malnutrition Activity: Per Instructions section Non-emergency contact: Primary Care Provider and [employer] Call non-emergency contact if: you have any medication questions and your symptoms worsen Follow-up/Referrals: Elizabeth Jose MD [Primary Care Provider] - Diet: Heart Healthy Addtl Attending Provider Instructions: You will be discharged to [facility], it is important that after rehab you continue to follow-up with pulmonary medicine. Use supplemental oxygen, to keep your oxygen saturations at 88 to 92%. At night you will need at least 2 L of supplemental oxygen. It is recommended that you have a sleep study done. It is also recommended that you use BiPAP at night, or for shortness of breath. You were started on a new inhaler, Anoro, use it as prescribed. Pending Studies at Discharge: Yes Studies:: Alpha-1 antitrypsin pending Stand-Alone Forms: My [facility] Skilled Items Patient informed of condition?: Yes DNR: Yes Discharge Level of Care: Acute rehab Communicable Disease: No Discharge Prognosis: Stable Lines: None Urinary Catheter: No Medications and DC Order Prescriptions: New Anoro Ellipta 62.5-25 mcg/actuation Blister With Device 1 ea inhalation DAILY Qty: 14 RF: 0 guaifenesin [Mucinex] 600 mg Tablet Extended Release 12hr 1,200 mg PO Q12 Qty: 30 RF: 0 Certavite-Antioxidant 18-400 mg-mcg Tablet 1 tab PO QAM Qty: 30 RF: 0 levalbuterol HCl 1.25 mg/3 mL Solution For Nebulization 1.25 mg inhalation Q6R PRN (Reason: shortness of breath or wheezing) Qty: 3 RF: 0 Continued atorvastatin [Lipitor] 20 mg tablet 20 mg PO Q2D RF: 0 dorzolamide-timolol 22.3-6.8 mg/mL Drops 1 drp OPB BID RF: 0 glucosamine-chondroitin [Osteo Bi-Flex] 250-200 mg Tablet 1 tab PO QAM RF: 0 PreserVision AREDS [id number] Capsule 1 cap PO QAM RF: 0 latanoprost 0.005 % drops 1 drp OPB HS RF: 0 albuterol sulfate 90 mcg/actuation HFA aerosol inhaler 2 puff INHALATION Q4H PRN (Reason: Wheezing and SOB) RF: 0 Eliquis 5 mg tablet 5 mg PO BID RF: 0 metoprolol succinate 25 mg tablet extended release 24 hr 25 mg PO BID RF: 0 ipratropium-albuterol 0.5 mg-3 mg(2.5 mg base)/3 mL solution for nebulization 3 ml INHALATION QID RF: 0 mirtazapine 15 mg tablet 15 mg PO HS RF: 0 Discontinued Incruse Ellipta 62.5 mcg/actuation blister with device 1 inh INHALATION DAILY RF: 0 Discharge Orders: Discharge Order (Routine); Ordered 02/13/21 Ordered By: Benja Lai Admission Data Admit Date/Time: 02/10/21 11:41 Attending Provider: Benja Lai Admit Provider: Benja Lai Primary Care Provider: Elizabeth Jose Other Providers: Benja Lai ; Aly Hernández ; [facility] ; Jose Luis Gonzalez ; Chaz Law ; Branden Noonan ; Davon Ge ; Arthur Zeng ; Joe Lennon ; Cheryl De La Rosa ; Mirella Roland ; Salima Fournier ; Garth Olsen
--- NOTE | 2021-02-15 11:42 | Emergency Department Note ---
Impression & Plan Shortness of breath, Hypoxia, Acute hypoxemic respiratory failure ED Provider Note NAME: JASON LERMA AGE: 85 SEX: M : 1935 ARRIVES VIA: Ambulance INFORMANT: Patient, ED PROVIDER(S): Kev Mcguire MD CHIEF COMPLAINT: HPI: Records review reveals this patient was seen in the emergency department on December 26 for shortness of breath. This is an 85-year-old male with a history of acute hypoxemic respiratory failure as well as asbestos-induced pleural plaque. The patient reports he has a history of COPD and reports shortness of breath that has been ongoing for the past 24 hours. The patient reports any exertion makes the shortness of breath worse. He has been using his inhalers at home without relief of his breathing. He reports any exertion makes the shortness of breath worse however rest makes it somewhat better. The patient also reports he is also on Eliquis. ROS: See above HPI for pertinent positives & negatives. A total of 10 systems reviewed and were otherwise negative. PAST MEDICAL HISTORY: See Below PAST SURGICAL HISTORY: See Below FAMILY HISTORY: See Below SOCIAL HISTORY: See Below HOME MEDICATIONS: See Below ALLERGIES: See Below VITALS: See Below PHYSICAL EXAMINATION: VITAL SIGNS - Vital signs and nursing notes were reviewed. GENERAL - 85-year-old male appearing stated age who is in no acute distress. Communicates well with provider and answers questions appropriately. SKIN - Without rashes. HEAD - NC/AT. EYES - PERRL with EOMI bilaterally. Sclera anicteric. Palpebral conjunctiva pink and moist with no injection noted. EARS - No deformities of external structures noted on gross examination bilaterally. NOSE - Midline and without cyanosis. No epistaxis or purulent drainage noted. Septum midline without deviation or septal hematoma noted. MOUTH/OROPHARYNX - Without perioral cyanosis. Buccal mucosa pink and moist and without leukoplakia. Tongue midline with equal elevation of palate bilaterally. No tonsillar hypertrophy, erythema, or exudates noted. NECK - Neck with FROM. Supple to palpation. LUNGS -distant breath sounds wheezing appreciated at the bases. CARDIAC - RRR with S1/S2. No murmur, rubs, or gallops appreciated. ABDOMEN - Abdominal contour without pulsations or visible masses. BS normoactive all four quadrants. No tenderness, palpable masses, hepatosplenomegaly, or ascites noted. EXTREMITIES - No clubbing or peripheral cyanosis. No pretibial edema present. +3/5 radial, posterior tibial, and dorsalis pedis pulses palpated throughout. +5/5 strength noted in UE/LE bilaterally. NEUROLOGIC - Cranial nerves II through XII grossly intact. Sensory intact to light touch throughout. Patellar reflexes +2/4. PSYCH - A&Ox3 and cooperates fully with examiner. Pt is very pleasant and interacts well with examiner. MEDICAL DECISION MAKING: Patient was seen and evaluated as above in room C9. Review was performed of nursing notes and vital signs. I did review pertinent previous visits and patient history. After obtaining a thorough history and physical examination the above work up was performed. This is an 85-year-old male who presents to the emergency department complaining of shortness of breath. The patient has an increased oxygen demand. He was given an hour-long breathing treatment here in the emergency department. Chest x-ray was reviewed and interpreted by me shows no evidence pneumonia congestion or pneumothorax. He was given Solu-Medrol as well as magnesium here in the [facility]. I did discuss the case with the hospitalist service who did agree to admit the patient. Patient is in agreement with the treatment plan. An order was placed for continuous cardiac monitoring. The monitor shows a rate of 60 with Normal SInus rhythm. The patient was evaluated during a period of high volume and high acuity during the global COVID-19 pandemic, and that diagnosis was suspected/considered upon their initial presentation. Their evaluation, treatment and testing was consistent with current guidelines for patients who present with complaints or symptoms that may be related to COVID-19. Patient was seen while provider was wearing PPE. Triage Nursing notes reviewed. Prior medical records reviewed Vital Signs: reviewed and remarkable for no significant abnormalities Differential diagnosis: Reactive airway disease, pneumonia, pneumothorax, COPD, CHF, infections, cardiac ischemia, pulmonary embolism, musculoskeletal, gastrointestinal, as well as other pathologies. ER treatment provided: See below Diagnostics interpreted by me: ECG: EKG shows an atrial paced rhythm with occasional PVC no ST elevation or depression QTC is 441 ventricular rate is 67 EKG is compared to 12/26/2020 and is unchanged Laboratory studies: As stated above and show below. 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 Family History Mother Coronary heart disease Social History Smoking Status: Never smoker Second Hand Exposure: Yes (not currently); Hx Alcohol Use: No Hx Substance Use: No Preferred Language: Scottish Communication Ability: Effective 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 Beliefs That Will Affect Care: None Current Living Situation: Spouse Feels Safe at Home: Yes Assistive Devices: None Allergies Allergies Allergy/AdvReac Type Severity Reaction Status Date / Time cephalexin Allergy Severe Rash Unverified 02/10/21 11:16 lisinopril Allergy Unknown Rxn not Verified 02/10/21 11:16 stated niacin Allergy Unknown Reaction Verified 02/10/21 11:16 not stated Home Meds Home Medications Medication Instructions Recorded Confirmed atorvastatin 20 mg tablet (Lipitor) 20 mg PO Q2D 01/21/19 02/10/21 dorzolamide 22.3 mg-timolol 6.8 1 drp OPB BID 01/21/19 02/10/21 mg/mL eye drops glucosamine-chondroitin 250 mg-200 1 tab PO QAM 01/21/19 02/10/21 mg tablet (Osteo Bi-Flex) vitamins A,C,E-sarh-xtwmme 14,320 1 cap PO QAM 12/17/20 02/10/21 unit-226 mg-200 unit capsule (PreserVision AREDS) albuterol sulfate 90 mcg/actuation 2 puff INHALATION Q4H PRN 02/10/21 02/10/21 aerosol inhaler apixaban 5 mg tablet (Eliquis) 5 mg PO BID 02/10/21 02/10/21 ipratropium 0.5 mg-albuterol 3 mg 3 ml INHALATION QID 02/10/21 02/10/21 (2.5 mg base)/3 mL nebulization soln latanoprost 0.005 % eye drops 1 drp OPB HS 02/10/21 02/10/21 metoprolol succinate 25 mg 25 mg PO BID 02/10/21 02/10/21 tablet,extended release 24 hr mirtazapine 15 mg tablet 15 mg PO HS 02/10/21 02/10/21 Previous Rx's Medication Instructions Recorded guaifenesin 600 mg tablet, 1,200 mg PO Q12 #30 tab 02/13/21 extended release 12 hr (Mucinex) levalbuterol HCl 1.25 mg/3 mL 1.25 mg INHALATION Q6R PRN #3 ml 02/13/21 solution for nebulization multivitamin-ferrous 1 tab PO QAM #30 tab 02/13/21 fumarate-folic acid 18 mg-400 mcg tablet (Certavite-Antioxidant) umeclidinium 62.5 mcg-vilanterol 1 ea INHALATION DAILY #14 ea 02/13/21 25 mcg/actuation powdr for inhalation (Anoro Ellipta) Results & Data (ED) Home Medications Current Medication List: was personally reviewed by me Laboratory Data Attestation: I reviewed the patient's lab results. Result diagrams: 02/13/21 05:05 02/13/21 05:05 Lab Results 02/10/21 02/10/21 02/10/21 Range/Units 09:50 09:50 10:19 WBC 5.19 (4.8-10.8) K/uL RBC 3.14 L (4.7-6.1) M/uL Hgb 10.5 L (14.0-18.0) g/dL Hct 33.1 L (42-52) % MCV 105.4 H (80-100) fL MCH 33.4 (25-34) pg MCHC 31.7 L (32-36) g/dL RDW Std Deviation 72.8 H (36.4-46.3) fL RDW Coeff of Ganga 19.2 H (11.5-14.5) % Plt Count 246 (130-400) K/uL MPV 11.3 H (7.4-10.4) fL Immature Gran % (Auto) 0.4 % Neut % (Auto) 55.4 % Lymph % (Auto) 28.7 % [place] % (Auto) 11.4 % Eos % (Auto) 3.9 % Baso % (Auto) 0.2 % Neut # (Auto) 2.88 (1.4-6.5) K/uL Lymph # (Auto) 1.49 (1.2-3.4) K/uL [place] # (Auto) 0.59 (0.11-0.59) K/uL Eos # (Auto) 0.20 (0-0.5) K/uL Baso # (Auto) 0.01 (0-0.2) K/uL Immature Gran # (Auto) 0.02 (0.00-0.02) K/uL Absolute Nucleated RBC 0.04 H (0-0) K/uL Nucleated RBC % (auto) 0.9 % PT (9.0-12.0) Seconds INR (0.9-1.1) APTT (21.0-31.0) Seconds PTT Ratio Sodium (136-145) mmol/L Potassium (3.5-5.1) mmol/L Chloride (98-107) mmol/L Carbon Dioxide (21-32) mmol/L Anion Gap (3-11) BUN (7-18) mg/dl Creatinine (0.6-1.4) mg/dl Est Cr Clr Drug Dosing ml/min Est GFR ( Amer) ml/min Est GFR (Non-Af Amer) ml/min BUN/Creatinine Ratio (10-20) Glucose (70-99) mg/dl Calcium (8.5-10.1) mg/dl Total Bilirubin (0.2-1) mg/dl AST (15-37) U/L ALT (12-78) U/L Alkaline Phosphatase (45-117) U/L Total Creatine Kinase (39-308) U/L CK-MB (CK-2) (0.5-3.6) ng/ml CK/CKMB % Calc (0-3.0) Troponin I (0-0.045) ng/ml Total Protein (6.4-8.2) gm/dl Albumin (3.4-5.0) gm/dl Globulin (2.5-4.0) gm/dl Albumin/Globulin Ratio (0.9-2) Lipase (73-393) U/L COVID-19 Eval Order Covid19 at [facility] SARS-CoV-2 (PCR) NEGATIVE (Negative) 02/10/21 02/10/21 02/10/21 Range/Units 10:19 10:19 10:19 WBC (4.8-10.8) K/uL RBC (4.7-6.1) M/uL Hgb (14.0-18.0) g/dL Hct (42-52) % MCV (80-100) fL MCH (25-34) pg MCHC (32-36) g/dL RDW Std Deviation (36.4-46.3) fL RDW Coeff of Ganga (11.5-14.5) % Plt Count (130-400) K/uL MPV (7.4-10.4) fL Immature Gran % (Auto) % Neut % (Auto) % Lymph % (Auto) % [place] % (Auto) % Eos % (Auto) % Baso % (Auto) % Neut # (Auto) (1.4-6.5) K/uL Lymph # (Auto) (1.2-3.4) K/uL [place] # (Auto) (0.11-0.59) K/uL Eos # (Auto) (0-0.5) K/uL Baso # (Auto) (0-0.2) K/uL Immature Gran # (Auto) (0.00-0.02) K/uL Absolute Nucleated RBC (0-0) K/uL Nucleated RBC % (auto) % PT 11.8 (9.0-12.0) Seconds INR 1.2 H (0.9-1.1) APTT 26.9 (21.0-31.0) Seconds PTT Ratio 1.0 Sodium 142 (136-145) mmol/L Potassium 4.2 (3.5-5.1) mmol/L Chloride 106 (98-107) mmol/L Carbon Dioxide 37 H (21-32) mmol/L Anion Gap -1.0 L (3-11) BUN 14 (7-18) mg/dl Creatinine 0.74 (0.6-1.4) mg/dl Est Cr Clr Drug Dosing 68.5 ml/min Est GFR ( Amer) 96.8 ml/min Est GFR (Non-Af Amer) 83.5 ml/min BUN/Creatinine Ratio 19.2 (10-20) Glucose 91 (70-99) mg/dl Calcium 8.2 L (8.5-10.1) mg/dl Total Bilirubin 0.8 (0.2-1) mg/dl AST 15 (15-37) U/L ALT 19 (12-78) U/L Alkaline Phosphatase 83 (45-117) U/L Total Creatine Kinase 25 L (39-308) U/L CK-MB (CK-2) 2.4 (0.5-3.6) ng/ml CK/CKMB % Calc 9.6 H (0-3.0) Troponin I 0.047 H* (0-0.045) ng/ml Total Protein 6.1 L (6.4-8.2) gm/dl Albumin 3.4 (3.4-5.0) gm/dl Globulin 2.7 (2.5-4.0) gm/dl Albumin/Globulin Ratio 1.3 (0.9-2) Lipase 181 (73-393) U/L COVID-19 Eval Order SARS-CoV-2 (PCR) (Negative) Administered Medications Discontinued Medications Apixaban (Apixaban 5 Mg Tablet) 5 mg PO BID [facility] Stop: 03/14/21 18:59 Last Admin: 02/13/21 09:08 Dose: 5 mg Documented by: [id number] Admin: 02/12/21 21:12 Dose: 5 mg Documented by: [id number] Atorvastatin Calcium (Atorvastatin 20 Mg Tab) 20 mg PO Q2D@2100 [facility] Stop: 03/14/21 18:59 Last Admin: 02/12/21 21:12 Dose: 20 mg Documented by: [id number] Azithromycin (Azithromycin 250 Mg Tab) 500 mg PO NOW ONE Stop: 02/10/21 12:52 Last Admin: 02/10/21 14:16 Dose: 500 mg Documented by: [id number] Azithromycin (Azithromycin 250 Mg Tab) 250 mg PO QAM [facility] Stop: 02/13/21 08:59 Last Admin: 02/12/21 08:06 Dose: 250 mg Documented by: [id number] Admin: 02/11/21 08:04 Dose: 250 mg Documented by: [id number] Diltiazem HCl (Diltiazem Hcl 5 Mg/Ml 5 Ml Vial) 10 mg IV NOW STA Stop: 02/12/21 04:27 Last Admin: 02/12/21 04:56 Dose: 10 mg Documented by: [id number] Cosigned by: [id number] Docusate Sodium (Docusate Sodium Syrup 100 Mg/10 Ml Udc) 100 mg PO BID [facility] Stop: 03/14/21 08:59 Last Admin: 02/13/21 09:08 Dose: 100 mg Documented by: [id number] Admin: 02/12/21 21:10 Dose: Not Given Documented by: [id number] Admin: 02/12/21 10:20 Dose: 100 mg Documented by: [id number] Dorzolamide/Timolol (Dorzolamide/Timolol 22.3/6.8mg/Ml 10 Ml Btl) 1 drops OPB BID [facility] Stop: 03/14/21 20:59 Last Admin: 02/13/21 09:09 Dose: 1 drops Documented by: [id number] Admin: 02/12/21 21:14 Dose: 1 drops Documented by: [id number] Guaifenesin (Guaifenesin 600 Mg Tabcr) 1,200 mg PO Q12 DUC Stop: 03/12/21 20:59 Last Admin: 02/13/21 09:09 Dose: 1,200 mg Documented by: [id number] Admin: 02/12/21 21:14 Dose: 1,200 mg Documented by: [id number] Admin: 02/12/21 08:06 Dose: 1,200 mg Documented by: [id number] Admin: 02/11/21 19:41 Dose: 1,200 mg Documented by: [id number] Admin: 02/11/21 08:04 Dose: 1,200 mg Documented by: [id number] Admin: 02/10/21 21:48 Dose: 1,200 mg Documented by: [id number] Methylprednisolone 40 mg/ (Syringe) 0.64 mls @ 1.5 mls/min IV Q12H DUC Stop: 03/12/21 13:08 Last Admin: 02/11/21 10:07 Dose: 1.5 mls/min Documented by: [id number] Admin: 02/10/21 21:00 Dose: 1.5 mls/min Documented by: [id number] Diltiazem HCl 125 mg/ Dextrose 125 mls @ 5 mls/hr IV .Q24H DUC; Protocol Stop: 03/14/21 04:44 Last Titration: 02/13/21 03:48 Dose: 0 mg/hr, 0 mls/hr Documented by: [id number] Cosigned by: [id number] Titration: 02/12/21 22:22 Dose: 5 mg/hr, 5 mls/hr Documented by: [id number] Cosigned by: [id number] Titration: 02/12/21 19:04 Dose: 10 mg/hr, 10 mls/hr Documented by: [id number] Cosigned by: [id number] Admin: 02/12/21 17:17 Dose: 10 mg/hr, 10 mls/hr Documented by: [id number] Cosigned by: [id number] Titration: 02/12/21 17:17 Dose: 10 mg/hr, 10 mls/hr Documented by: [id number] Cosigned by: [id number] Titration: 02/12/21 08:06 Dose: 10 mg/hr, 10 mls/hr Documented by: [id number] Cosigned by: [id number] Admin: 02/12/21 04:55 Dose: 5 mg/hr, 5 mls/hr Documented by: [id number] Cosigned by: [id number] Latanoprost (Latanoprost 0.005% Op Soln 2.5 Ml Btl) 1 drops OPB HS DUC Stop: 03/14/21 20:59 Last Admin: 02/12/21 21:14 Dose: 1 drops Documented by: [id number] Levalbuterol HCl (Levalbuterol Hcl 1.25 Mg/3 Ml Neb) 1.25 mg NEB NOW STA Stop: 02/10/21 09:56 Last Admin: 02/10/21 10:22 Dose: 1.25 mg Documented by: [id number] Levalbuterol HCl (Levalbuterol Hcl 1.25 Mg/3 Ml Neb) 1.25 mg NEB NOW STA Stop: 02/10/21 10:41 Last Admin: 02/10/21 11:09 Dose: 1.25 mg Documented by: [id number] Levalbuterol HCl (Levalbuterol Hcl 1.25 Mg/3 Ml Neb) 1.25 mg NEB NOW STA Stop: 02/10/21 11:08 Last Admin: 02/10/21 11:11 Dose: 1.25 mg Documented by: [id number] Levalbuterol HCl (Levalbuterol Hcl 1.25 Mg/3 Ml Neb) 1.25 mg INH Q6R DUC Stop: 03/12/21 18:59 Last Admin: 02/12/21 12:52 Dose: 1.25 mg Documented by: [id number] Admin: 02/12/21 07:29 Dose: 1.25 mg Documented by: [id number] Admin: 02/12/21 01:09 Dose: 1.25 mg Documented by: [id number] Admin: 02/11/21 19:11 Dose: 1.25 mg Documented by: [id number] Admin: 02/11/21 12:36 Dose: 1.25 mg Documented by: [id number] Admin: 02/11/21 07:13 Dose: 1.25 mg Documented by: [id number] Admin: 02/11/21 00:58 Dose: Not Given Documented by: [id number] Admin: 02/10/21 18:57 Dose: 1.25 mg Documented by: [id number] Methylprednisolone (Methylprednisolone 125 Mg/2 Ml Vial) 60 mg IV NOW STA Stop: 02/10/21 10:08 Last Admin: 02/10/21 10:31 Dose: 60 mg Documented by: [id number] Metoprolol Succinate (Metoprolol Succ 25mg Ext Rel Tab) 25 mg PO BID DUC Stop: 03/14/21 18:59 Last Admin: 02/13/21 09:08 Dose: 25 mg Documented by: [id number] Admin: 02/12/21 21:12 Dose: 25 mg Documented by: [id number] Metoprolol Tartrate (Metoprolol Tartrate 1 Mg/Ml Vial) 5 mg IV NOW STA Stop: 02/12/21 03:32 Last Admin: 02/12/21 03:41 Dose: 5 mg Documented by: [id number] Metoprolol Tartrate (Metoprolol Tartrate 1 Mg/Ml Vial) Confirm Administered Dose 5 mg IV .STK-MED ONE Stop: 02/12/21 03:35 Last Admin: 02/12/21 03:42 Dose: Not Given Documented by: [id number] Mirtazapine (Mirtazapine Tab 15 Mg Tab) 15 mg PO HS [facility] Stop: 03/14/21 20:59 Last Admin: 02/12/21 21:14 Dose: 15 mg Documented by: [id number] Multivitamins/Minerals (Cerovite Adv Formula Tab) 1 tab PO QAM [facility] Stop: 03/13/21 08:59 Last Admin: 02/13/21 09:09 Dose: 1 tab Documented by: [id number] Admin: 02/12/21 08:06 Dose: 1 tab Documented by: [id number] Admin: 02/11/21 08:04 Dose: 1 tab Documented by: [id number] Polyethylene Glycol (Polyethylene (Miralax) 17 Gm Pack) 17 gm PO DAILY PRN PRN Reason: Constipation Stop: 03/14/21 07:51 Last Admin: 02/12/21 10:20 Dose: 17 gm Documented by: [id number] Umeclidinium/Vilanterol (Umeclidinium/Vilanterol 62.5/25mcg 7 Puffs/Inhaler) 1 puffs INH DAILY DUC Stop: 03/12/21 17:29 Last Admin: 02/13/21 09:09 Dose: 1 puffs Documented by: [id number] Admin: 02/12/21 08:06 Dose: 1 puffs Documented by: [id number] Admin: 02/11/21 08:04 Dose: 1 puffs Documented by: [id number] Admin: 02/10/21 18:31 Dose: 1 puffs Documented by: [id number] Imaging Data Radiologist's Impression: Chest X-Ray 02/10/21 09:55 SINGLE VIEW CHEST CLINICAL HISTORY: Atypical chest pain. FINDINGS: 2 AP, portable, upright chest radiographs are compared to study dated 12/26/2020 and correlated with chest CT dated 12/27/2020. The examination is degraded by portable technique and patient rotation. The patient is status post midline sternotomy. A 2-lead cardiac pacemaker is unchanged in position. The heart is mildly enlarged noting atherosclerotic calcification of the thoracic aorta. The pulmonary vasculature is noncongested. Chronic interstitial thickening is similar to previous. There is bibasilar scarring/atelectasis. No airspace consolidation or large pleural effusion is identified. No pneumothorax is seen. The skeletal structures are osteopenic. The bony thorax is grossly intact. IMPRESSION: 1. Cardiomegaly and cardiac pacemaker with no radiographic evidence of congestive failure. 2. No airspace consolidation or large pleural effusion is identified. ACT 112: Negative or not required by law. Electronically signed by: Good Myers M.D. 02/10/2021 10:23 AM Discharge Plan Visit Data Chief Complaint: Shortness of Breath/Dyspnea Stated Complaint: WEAKNESS, SOB ED Provider: Kev Mcguire Discharge Problem: Shortness of breath, Hypoxia, Acute hypoxemic respiratory failure Patient Disposition: Admitted As Inpatient Discharge Instructions Interventions: ED Discharge Assessment Last Done: 02/10/21 12:49
[2021-02-19 21:21] LABS: Alpha 1 Antitrypsin 131 mg/dL (83-199)
== END 2021-02-13 13:55 | DRG 193 ==
LOC: ED 09:18 → 2S 11:41

== ENCOUNTER 2021-02-23 18:28 | Inpatient (IN) ==
--- NOTE | 2021-02-23 18:50 | XRay Report ---
XR chest 1V portable HISTORY: Difficulty breathing. COMPARISON: Chest 02/10/2021. FINDINGS: The patient's chin partially obscures the lung apices. No definite pneumothorax. Small bila teral pleural effusions and bibasilar densities have progressed. The heart remains mildly enlarged. T here is mild central pulmonary vascular congestion without overt edema. There is mild emphysema. Ther e are poststernotomy changes and left-sided single chamber pacemaker. IMPRESSION: 1. Cardiomegaly with mild central pulmonary vascular congestion. 2. Interval progression of the small bilateral pleural effusions and bibasilar densities. ACT 112: Negative or not required by law. Electronically signed by: Austen Herrera M.D. 02/23/2021 6:48 PM
[2021-02-23] MEDS ORDERED: ALBUT/IPRATROP 3MG/0.5MG NEB 3 ML VIAL NEB STA (18:56)
--- NOTE | 2021-02-23 18:56 | Emergency Department Note ---
History of Present Illness General Chief Complaint: Shortness of Breath/Dyspnea Stated Complaint: Hypoxia Time Seen by Provider: 02/23/21 18:34 History of Present Illness Provider Complaint: shortness of breath Onset (ago): day(s) (2) Severity: severe Consistency/Duration: + intermittent and + improved Relieved By: + oxygen Exacerbated By: + exertion and + coughing Known history of: other (Restrictive lung disease and) Associated symptoms: + cough; no chest pain, no fever, no palpitations, no nausea/vomiting or no abdominal pain HPI Narrative: Patient's at bedside. Patient is states that the patient needs oxygen and they have been having trouble procuring the oxygen outpatient due to insurance issues. She states that the patient has a pulse oximeter and his oxygen saturation went into the 80s last night. She also states that he fell and hit his head yesterday. Patient states he is on no blood thinners because he cannot afford them however the states that he is taking Eliquis. Home Medications Medication Instructions Recorded Confirmed Type atorvastatin 20 mg tablet (Lipitor) 20 mg PO Q2D 01/21/19 02/23/21 History dorzolamide 22.3 mg-timolol 6.8 1 drp OPB BID 01/21/19 02/23/21 History mg/mL eye drops glucosamine-chondroitin 250 mg-200 1 tab PO QAM 01/21/19 02/23/21 History mg tablet (Osteo Bi-Flex) vitamins A,C,X-hwha-ynfnqt 14,320 1 cap PO QAM 12/17/20 02/23/21 History unit-226 mg-200 unit capsule (PreserVision AREDS) albuterol sulfate 90 mcg/actuation 2 puff INHALATION Q4H PRN 02/10/21 02/23/21 History aerosol inhaler apixaban 5 mg tablet (Eliquis) 5 mg PO BID 02/10/21 02/23/21 History ipratropium 0.5 mg-albuterol 3 mg 3 ml INHALATION QID 02/10/21 02/23/21 History (2.5 mg base)/3 mL nebulization soln latanoprost 0.005 % eye drops 1 drp OPB HS 02/10/21 02/23/21 History metoprolol succinate 25 mg 25 mg PO BID 02/10/21 02/23/21 History tablet,extended release 24 hr mirtazapine 15 mg tablet 15 mg PO HS 02/10/21 02/23/21 History guaifenesin 600 mg tablet, 1,200 mg PO Q12 #30 tab 02/13/21 02/23/21 Rx extended release 12 hr (Mucinex) levalbuterol HCl 1.25 mg/3 mL 1.25 mg INHALATION Q6R PRN #3 ml 02/13/21 02/23/21 Rx solution for nebulization multivitamin-ferrous 1 tab PO QAM #30 tab 02/13/21 02/23/21 Rx fumarate-folic acid 18 mg-400 mcg tablet (Certavite-Antioxidant) umeclidinium 62.5 mcg-vilanterol 1 ea INHALATION DAILY #14 ea 02/13/21 02/23/21 Rx 25 mcg/actuation powdr for inhalation (Anoro Ellipta) Allergies Allergy/AdvReac Type Severity Reaction Status Date / Time cephalexin Allergy Severe Rash Unverified 02/23/21 19:31 lisinopril Allergy Unknown Rxn not Verified 02/23/21 19:31 stated niacin Allergy Unknown Reaction Verified 02/23/21 19:31 not stated Past Med/Surg History Medical History CAD (coronary artery disease) History of nephrolithiasis History of prostate cancer HTN (hypertension) Hyperlipidemia Macular degeneration MDS (myelodysplastic syndrome) Paroxysmal A-fib Tachy-ruben syndrome Surgical History History of prostatectomy 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, battery recently replaced 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 Family History Mother Coronary heart disease Social History Smoking Status: Never smoker Second Hand Exposure: Yes (not currently); Hx Alcohol Use: No Hx Substance Use: No Preferred Language: Egyptian Communication Ability: Effective Head Silverman Required: No Beliefs That Will Affect Care: None Current Living Situation: Spouse Feels Safe at Home: Yes Assistive Devices: None Review of Systems A total of 10 systems reviewed and were otherwise negative Physical Exam Vital Signs: Vital Signs - 24 hr 02/23/21 18:40 02/23/21 18:42 02/23/21 19:00 Temperature 37.0 C Temperature Source Oral Pulse Rate 89 63 60 Pulse Rate [Apical ] Pulse Rate from Sp O2 Sensor 84 60 Pulse Rhythm Irregular Pulse Strength Normal Respiratory Rate 18 Respiratory Effort / Characteristics Non-Labored Respiratory Depth Normal Blood Pressure 130/68 130/68 112/68 Blood Pressure Destiny n 88 88 82 Blood Pressure Pos ition Sitting Pulse Oximetry 93 92 99 Oxygen Delivery Me thod Room Air Oxygen Flow Rate Sepsis Recent Feve r Within 48 Hours No Sepsis New/Unexpla ined Change in Men malaika Status No Sepsis Action Take n by Nursing No Action Required Oxygen Flow Rate - Titration Pulse Oximetry Pos t Tiitration 02/23/21 19:02 02/23/21 19:32 02/23/21 19:33 Temperature Temperature Source Pulse Rate 64 Pulse Rate [Apical ] 63 Pulse Rate from Sp O2 Sensor 64 Pulse Rhythm Pulse Strength Respiratory Rate 18 Respiratory Effort / Characteristics Non-Labored Non-Labored Sponta neous Respiratory Depth Blood Pressure Blood Pressure Destiny n Blood Pressure Pos ition Pulse Oximetry 88 L 100 100 Oxygen Delivery Me thod Room Air Nasal Cannula Nasal Cannula Oxygen Flow Rate 2 2 Sepsis Recent Feve r Within 48 Hours Sepsis New/Unexpla ined Change in Men malaika Status Sepsis Action Take n by Nursing Oxygen Flow Rate - Titration 2 Pulse Oximetry Pos t Tiitration 95 02/23/21 19:40 02/23/21 19:50 02/23/21 20:00 Temperature Temperature Source Pulse Rate 65 62 62 Pulse Rate [Apical ] Pulse Rate from Sp O2 Sensor 60 61 60 Pulse Rhythm Pulse Strength Respiratory Rate 19 19 15 Respiratory Effort / Characteristics Respiratory Depth Blood Pressure Blood Pressure Destiny n Blood Pressure Pos ition Pulse Oximetry 100 100 98 Oxygen Delivery Me thod Nasal Cannula Oxygen Flow Rate 2 Sepsis Recent Feve r Within 48 Hours Sepsis New/Unexpla ined Change in Men malaika Status Sepsis Action Take n by Nursing Oxygen Flow Rate - Titration Pulse Oximetry Pos t Tiitration 02/23/21 20:10 02/23/21 20:30 02/23/21 21:00 Temperature Temperature Source Pulse Rate 62 65 62 Pulse Rate [Apical ] Pulse Rate from Sp O2 Sensor 60 60 60 Pulse Rhythm Pulse Strength Respiratory Rate 15 19 17 Respiratory Effort / Characteristics Respiratory Depth Blood Pressure 116/61 131/60 Blood Pressure Destiny n 79 83 Blood Pressure Pos ition Pulse Oximetry 96 91 99 Oxygen Delivery Me thod Nasal Cannula Oxymask Oxygen Flow Rate 2 Sepsis Recent Feve r Within 48 Hours Sepsis New/Unexpla ined Change in Men malaika Status Sepsis Action Take n by Nursing Oxygen Flow Rate - Titration Pulse Oximetry Pos t Tiitration 02/23/21 21:30 02/23/21 22:00 02/23/21 22:30 Temperature Temperature Source Pulse Rate 63 66 64 Pulse Rate [Apical ] Pulse Rate from Sp O2 Sensor 60 60 60 Pulse Rhythm Pulse Strength Respiratory Rate 17 18 18 Respiratory Effort / Characteristics Respiratory Depth Blood Pressure 133/61 126/61 123/62 Blood Pressure Destiny n 85 82 82 Blood Pressure Pos ition Pulse Oximetry 100 99 100 Oxygen Delivery Me thod Oxygen Flow Rate Sepsis Recent Feve r Within 48 Hours Sepsis New/Unexpla ined Change in Men malaika Status Sepsis Action Take n by Nursing Oxygen Flow Rate - Titration Pulse Oximetry Pos t Tiitration 02/23/21 23:02 02/23/21 23:10 02/23/21 23:20 Temperature Temperature Source Pulse Rate 63 62 64 Pulse Rate [Apical ] Pulse Rate from Sp O2 Sensor 63 62 61 Pulse Rhythm Pulse Strength Respiratory Rate 14 Respiratory Effort / Characteristics Respiratory Depth Blood Pressure Blood Pressure Destiny n Blood Pressure Pos ition Pulse Oximetry 98 97 98 Oxygen Delivery Me thod Oxygen Flow Rate Sepsis Recent Feve r Within 48 Hours Sepsis New/Unexpla ined Change in Men malaika Status Sepsis Action Take n by Nursing Oxygen Flow Rate - Titration Pulse Oximetry Pos t Tiitration 02/23/21 23:42 Temperature Temperature Source Pulse Rate 90 Pulse Rate [Apical ] Pulse Rate from Sp O2 Sensor Pulse Rhythm Pulse Strength Respiratory Rate 17 Respiratory Effort / Characteristics Respiratory Depth Blood Pressure Blood Pressure Destiny n Blood Pressure Pos ition Pulse Oximetry Oxygen Delivery Me thod Oxygen Flow Rate Sepsis Recent Feve r Within 48 Hours Sepsis New/Unexpla ined Change in Men maalika Status Sepsis Action Take n by Nursing Oxygen Flow Rate - Titration Pulse Oximetry Pos t Tiitration Physical Exam: Physical Exam GENERAL: He is oriented to person, place, and time. He appears well-developed and well-nourished. He does not appear distressed. HENT: Exam performed. - Head: Normocephalic and atraumatic. - Right Ear: External ear normal. No mastoid tenderness. - Left Ear: External ear normal. No mastoid tenderness. - Mouth/Throat: The oropharynx is clear and moist. No trismus in the jaw. No dental abscesses or uvula swelling. No oropharyngeal exudate or tonsillar abscesses. EYES: Conjunctivae and EOM are normal. Pupils are equal, round, and reactive to light. Right eye exhibits no discharge. Left eye exhibits no discharge. No scleral icterus. NECK: Normal range of motion. Neck supple. No JVD present. No spinous process tenderness present. No carotid bruit present. No rigidity. No tracheal deviation and normal range of motion present. No Brudzinski's sign and no Kernig's sign noted. CV: Normal rate, regular rhythm, normal heart sounds and intact distal pulses. There is no peripheral edema. Palpable radial pulses bue. PULM/CHEST: Diminished breath sounds bilaterally. - Chest Wall: He exhibits no tenderness. ABD: The abdomen is soft. Bowel sounds are normal. He has no distension. No mass is present. There is no tenderness. There is no rebound, no guarding, no Lee's sign and no tenderness at McBurney's point. Rovsig negative. MUSC/SKEL: Normal range of motion. There is no peripheral edema, tenderness or deformity. LYMPH: No cervical adenopathy. NEURO: He is alert and oriented to person, place, and time. He has normal strength. No cranial nerve deficit or sensory deficit. Coordination and gait normal. GCS eye subscore is 4. GCS verbal subscore is 5. GCS motor subscore is 6. Cerebellar tests wnl. SKIN: Skin is warm and dry. He is not diaphoretic. PSYCH: He has a normal mood and affect. Behavior is normal. Judgment and thought content normal. Course Course 1833: The patient was evaluated in room B12. A complete history and physical exam was performed Cardiac monitoring: An order was placed for continuous cardiac monitoring. The monitor shows a rate of 70 with paced rhythm EMR reviewed. Patient has a history of being admitted from February 10, 2021 to February 13, 2021. At that time the patient had a PFT which showed nonspecific restrictive lung disease rather than obstructive pattern. Per that note the patient was supposed to be on Eliquis however the patient did not have insurance and was switched to Coumadin. He is supposed to start following on the Coumadin clinic once he starts Coumadin on the . He is continued on Eliquis with the states he is still taking. 2044: Nursing reported that the patient's oxygen saturation was 88% on room air. Patient placed on 2 L nasal cannula which improved his oxygen saturation. Labs are within normal limits. Imaging shows cardiomegaly with mild central pulmonary vascular congestion. No traumatic injury in the head or C-spine of the neck. Given the patient's hypoxia and trouble procuring oxygen outpatient, [facility] Joya notified Administered Medications Discontinued Medications Albuterol (Albut/Ipratrop 3mg/0.5mg Neb 3 Ml Vial) 3 ml NEB NOW STA Stop: 02/23/21 18:57 Last Admin: 02/23/21 19:33 Dose: 3 ml Documented by: [id number] Medical Decision Making Laboratory Data Result diagrams: 02/23/21 18:51 02/23/21 18:51 Lab Results 02/23/21 02/23/21 02/23/21 Range/Units 18:50 18:51 18:51 WBC 4.62 L (4.8-10.8) K/uL RBC 3.56 L (4.7-6.1) M/uL Hgb 12.5 L (14.0-18.0) g/dL Hct 39.8 L (42-52) % MCV 111.8 H (80-100) fL MCH 35.1 H (25-34) pg MCHC 31.4 L (32-36) g/dL RDW Std Deviation 85.9 H (36.4-46.3) fL RDW Coeff of Ganga 20.8 H (11.5-14.5) % Plt Count 219 (130-400) K/uL MPV 12.1 H (7.4-10.4) fL Immature Gran % (Auto) 0.2 % Neut % (Auto) 53.0 % Lymph % (Auto) 32.3 % [place] % (Auto) 10.8 % Eos % (Auto) 3.5 % Baso % (Auto) 0.2 % Neut # (Auto) 2.45 (1.4-6.5) K/uL Lymph # (Auto) 1.49 (1.2-3.4) K/uL [place] # (Auto) 0.50 (0.11-0.59) K/uL Eos # (Auto) 0.16 (0-0.5) K/uL Baso # (Auto) 0.01 (0-0.2) K/uL Immature Gran # (Auto) 0.01 (0.00-0.02) K/uL Polychromasia 1+ Poikilocytosis Present Anisocytosis Present PT (9.0-12.0) Seconds INR (0.9-1.1) APTT (21.0-31.0) Seconds PTT Ratio ABG pH 7.33 L (7.35-7.45) ABG pCO2 69 H (35-46) mmHg ABG pO2 60 L (80-95) mmHg ABG HCO3 36 H (19-24) mmol/L ABG O2 Saturation 88.1 L (90-95) % ABG Base Excess 7.5 H (-9-1.8) mEq/L Gunner Test Pos (Pos) Barometric Pressure 731.1 mm/Hg Oxygen Given ROOM AIR Sodium 140 (136-145) mmol/L Potassium 4.5 (3.5-5.1) mmol/L Chloride 103 (98-107) mmol/L Carbon Dioxide 38 H (21-32) mmol/L Anion Gap -1.0 L (3-11) BUN 16 (7-18) mg/dl Creatinine 0.69 (0.6-1.4) mg/dl Est Cr Clr Drug Dosing 73.6 ml/min Est GFR ( Amer) 99.6 ml/min Est GFR (Non-Af Amer) 86.0 ml/min BUN/Creatinine Ratio 23.8 H (10-20) Glucose 97 (70-99) mg/dl Calcium 8.9 (8.5-10.1) mg/dl Magnesium 2.1 (1.8-2.4) mg/dl Troponin I < 0.015 (0-0.045) ng/ml NT-Pro-B Natriuret Pep 1149 (0-1800) pg/ml COVID-19 Eval Order SARS-CoV-2 (PCR) (Negative) 02/23/21 02/23/21 02/23/21 Range/Units 18:51 19:03 19:03 WBC (4.8-10.8) K/uL RBC (4.7-6.1) M/uL Hgb (14.0-18.0) g/dL Hct (42-52) % MCV (80-100) fL MCH (25-34) pg MCHC (32-36) g/dL RDW Std Deviation (36.4-46.3) fL RDW Coeff of Ganga (11.5-14.5) % Plt Count (130-400) K/uL MPV (7.4-10.4) fL Immature Gran % (Auto) % Neut % (Auto) % Lymph % (Auto) % [place] % (Auto) % Eos % (Auto) % Baso % (Auto) % Neut # (Auto) (1.4-6.5) K/uL Lymph # (Auto) (1.2-3.4) K/uL [place] # (Auto) (0.11-0.59) K/uL Eos # (Auto) (0-0.5) K/uL Baso # (Auto) (0-0.2) K/uL Immature Gran # (Auto) (0.00-0.02) K/uL Polychromasia Poikilocytosis Anisocytosis PT 10.8 (9.0-12.0) Seconds INR 1.1 (0.9-1.1) APTT 25.7 (21.0-31.0) Seconds PTT Ratio 1.0 ABG pH (7.35-7.45) ABG pCO2 (35-46) mmHg ABG pO2 (80-95) mmHg ABG HCO3 (19-24) mmol/L ABG O2 Saturation (90-95) % ABG Base Excess (-9-1.8) mEq/L Gunner Test (Pos) Barometric Pressure mm/Hg Oxygen Given Sodium (136-145) mmol/L Potassium (3.5-5.1) mmol/L Chloride (98-107) mmol/L Carbon Dioxide (21-32) mmol/L Anion Gap (3-11) BUN (7-18) mg/dl Creatinine (0.6-1.4) mg/dl Est Cr Clr Drug Dosing ml/min Est GFR ( Amer) ml/min Est GFR (Non-Af Amer) ml/min BUN/Creatinine Ratio (10-20) Glucose (70-99) mg/dl Calcium (8.5-10.1) mg/dl Magnesium (1.8-2.4) mg/dl Troponin I (0-0.045) ng/ml NT-Pro-B Natriuret Pep (0-1800) pg/ml COVID-19 Eval Order Covid19 at [facility] SARS-CoV-2 (PCR) NEGATIVE (Negative) Imaging Data Radiologist's Impression: Chest X-Ray 02/23/21 18:36 XR chest 1V portable HISTORY: Difficulty breathing. COMPARISON: Chest 02/10/2021. FINDINGS: The patient's chin partially obscures the lung apices. No definite pneumothorax. Small bilateral pleural effusions and bibasilar densities have progressed. The heart remains mildly enlarged. There is mild central pulmonary vascular congestion without overt edema. There is mild emphysema. There are poststernotomy changes and left-sided single chamber pacemaker. IMPRESSION: 1. Cardiomegaly with mild central pulmonary vascular congestion. 2. Interval progression of the small bilateral pleural effusions and bibasilar densities. ACT 112: Negative or not required by law. Electronically signed by: Austen Herrera M.D. 02/23/2021 6:[address] 02/23/21 18:[address] DOSE: 1053.51 mGy.cm HISTORY: fall on eliquis TECHNIQUE: Multiaxial CT images of the cervical spine were performed and reformatted in the sagittal and coronal plane without the use of contrast. A dose lowering technique was utilized adhering to the principles of ALARA. COMPARISON: None. FINDINGS: No fractures. No subluxation. Prevertebral soft tissues and the C1-C2 interval are intact. No pneumothorax. Mild to moderate degenerative disc disease within the cervical spine. IMPRESSION: No fractures within the cervical spine. ACT 112: Negative or not required by law. Electronically signed by: Austen Herrera M.D. 02/23/2021 7:[address] 02/23/21 18:[address] DOSE: HISTORY: fall on eliquis TECHNIQUE: Multiaxial CT images of the head were performed without the use of intravenous contrast. Automated exposure control was utilized for this study. A dose lowering technique was utilized adhering to the principles of ALARA. Comparison: None. Findings: The paranasal sinuses and mastoid air cells are clear. The calvarium and skull base are intact. There is no mass, hematoma, midline shift, acute infarct. White matter hypodensity is nonspecific but suggestive of microvascular ischemic change. The ventricles and sulci demonstrate mild age-related involutional changes. 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 Impression: No acute intracranial abnormality. Atrophy and microvascular ischemic changes. ACT 112: Negative or not required by law. Electronically signed by: Austen Herrera M.D. 02/23/2021 7:53 PM ECG Data Interpretation: Paced rhythm with rate of 67. DE QRS and QTc intervals are within normal limits. No elevation or ST depression. [facility] Narrative 183: The patient was evaluated in room B12. A complete history and physical exam was performed Cardiac monitoring: An order was placed for continuous cardiac monitoring. The monitor shows a rate of 70 with paced rhythm EMR reviewed. Patient has a history of being admitted from February 10, 2021 to February 13, 2021. At that time the patient had a PFT which showed nonspecific restrictive lung disease rather than obstructive pattern. Per that note the patient was supposed to be on Eliquis however the patient did not have insurance and was switched to Coumadin. He is supposed to start following on the Coumadin clinic once he starts Coumadin on the . He is continued on Eliquis with the states he is still taking. 2044: Nursing reported that the patient's oxygen saturation was 88% on room air. Patient placed on 2 L nasal cannula which improved his oxygen saturation. Labs are within normal limits. Imaging shows cardiomegaly with mild central pulmonary vascular congestion. No traumatic injury in the head or C-spine of the neck. Given the patient's hypoxia and trouble procuring oxygen outpatient, [facility] Joya not ified Impression & Plan Hypoxia Discharge Plan Visit Data Chief Complaint: Shortness of Breath/Dyspnea Stated Complaint: Hypoxia ED Provider: Gunner Jay Discharge Problem: Hypoxia Patient Disposition: Admitted As Inpatient Discharge Instructions Interventions: ED Discharge Assessment Last Done: 02/23/21 23:54 Forms Stand Alone Forms: My [facility] [employer] Prescriptions Prescriptions: No Action atorvastatin [Lipitor] 20 mg tablet 20 mg PO Q2D RF: 0 dorzolamide-timolol 22.3-6.8 mg/mL Drops 1 drp OPB BID RF: 0 glucosamine-chondroitin [Osteo Bi-Flex] 250-200 mg Tablet 1 tab PO QAM RF: 0 PreserVision AREDS [id number] Capsule 1 cap PO QAM RF: 0 latanoprost 0.005 % drops 1 drp OPB HS RF: 0 albuterol sulfate 90 mcg/actuation HFA aerosol inhaler 2 puff INHALATION Q4H PRN (Reason: Wheezing and SOB) RF: 0 Eliquis 5 mg tablet 5 mg PO BID RF: 0 metoprolol succinate 25 mg tablet extended release 24 hr 25 mg PO BID RF: 0 ipratropium-albuterol 0.5 mg-3 mg(2.5 mg base)/3 mL solution for nebulization 3 ml INHALATION QID RF: 0 mirtazapine 15 mg tablet 15 mg PO HS RF: 0 Anoro Ellipta 62.5-25 mcg/actuation Blister With Device 1 ea inhalation DAILY Qty: 14 RF: 0 guaifenesin [Mucinex] 600 mg Tablet Extended Release 12hr 1,200 mg PO Q12 Qty: 30 RF: 0 Certavite-Antioxidant 18-400 mg-mcg Tablet 1 tab PO QAM Qty: 30 RF: 0 levalbuterol HCl 1.25 mg/3 mL Solution For Nebulization 1.25 mg inhalation Q6R PRN (Reason: shortness of breath or wheezing) Qty: 3 RF: 0 Referrals Referrals: Elizabeth Jose MD [Primary Care Provider] -
[2021-02-23 19:03] LABS: Basophils # (auto) 0.01 K/uL (0-0.2); Basophils % (auto) 0.2 %; Eosinophils # (auto) 0.16 K/uL (0-0.5); Eosinophils % (auto) 3.5 %; Hematocrit (blood only) 39.8 % (42-52); Hemoglobin 12.5 g/dL (14.0-18.0); Immature Granulocytes # (auto) 0.01 K/uL (0.00-0.02); Immature Granulocytes % (auto) 0.2 %; Lymphocytes # (auto) 1.49 K/uL (1.2-3.4); Lymphocytes % (auto) 32.3 %; Mean Corpuscular Hemoglobin 35.1 pg (25-34); Mean Corpuscular Hgb Conc 31.4 g/dL (32-36); Mean Corpuscular Volume 111.8 fL (80-100); Mean Platelet Volume 12.1 fL (7.4-10.4); Monocytes % (auto) 10.8 %; Neutrophils # (auto) 2.45 K/uL (1.4-6.5); Platelet Count 219 K/uL (130-400); RDW Coefficient of Variation 20.8 % (11.5-14.5); RDW Standard Deviation 85.9 fL (36.4-46.3); Red Blood Count 3.56 M/uL (4.7-6.1); White Blood Count 4.62 K/uL (4.8-10.8)
[2021-02-23 19:07] LABS: Base Excess ABG 7.5 mEq/L (-9-1.8); HCO3 ABG 36 mmol/L (19-24); Oxygen Saturation ABG 88.1 % (90-95); PCO2 ABG 69 mmHg (35-46); PO2 ABG 60 mmHg (80-95); pH ABG 7.33 (7.35-7.45)
[2021-02-23 19:09] LABS: Allen Test Pos (Pos)
[2021-02-23 19:17] LABS: INR 1.1 (0.9-1.1); Partial Thromboplastin Time 25.7 Seconds (21.0-31.0); Prothrombin Time 10.8 Seconds (9.0-12.0)
[2021-02-23 19:26] LABS: BUN Creatinine Ratio 23.8 (10-20); Blood Urea Nitrogen 16 mg/dl (7-18); Calcium 8.9 mg/dl (8.5-10.1); Carbon Dioxide 38 mmol/L (21-32); Chloride 103 mmol/L (98-107); Creatinine Clr Calc Pharmacy 73.6 ml/min; Est GFR (African American) 99.6 ml/min; Glucose 97 mg/dl (70-99); Magnesium 2.1 mg/dl (1.8-2.4); Potassium 4.5 mmol/L (3.5-5.1); Sodium 140 mmol/L (136-145)
[2021-02-23 19:31] LABS: NT Pro B Type Natriuretic Pept 1149 pg/ml (0-1800); Troponin I < 0.015 ng/ml (0-0.045)
[2021-02-23 19:37] LABS: Anisocytosis Present; Poikilocytosis Present; Polychromasia 1+
--- NOTE | 2021-02-23 19:54 | CT Scan Report ---
HEAD CT NONCONTRAST CT DOSE: HISTORY: fall on eliquis TECHNIQUE: Multiaxial CT images of the head were performed without the use of intravenous contrast. A utomated exposure control was utilized for this study. A dose lowering technique was utilized adheri ng to the principles of ALARA. Comparison: None. Findings: The paranasal sinuses and mastoid air cells are clear. The calvarium and skull base are int act. There is no mass, hematoma, midline shift, acute infarct. White matter hypodensity is nonspecifi c but suggestive of microvascular ischemic change. The ventricles and sulci demonstrate mild age-rela ajnia involutional changes. 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 Impression: No acute intracranial abnormality. Atrophy and microvascular ischemic changes. ACT 112: Negative or not required by law. Electronically signed by: Austen Herrera M.D. 02/23/2021 7:53 PM
--- NOTE | 2021-02-23 19:59 | CT Scan Report ---
CERVICAL SPINE CT CT DOSE: 1053.51 mGy.cm HISTORY: fall on eliquis TECHNIQUE: Multiaxial CT images of the cervical spine were performed and reformatted in the sagittal and coronal plane without the use of contrast. A dose lowering technique was utilized adhering to th e principles of ALARA. COMPARISON: None. FINDINGS: No fractures. No subluxation. Prevertebral soft tissues and the C1-C2 interval are intact. No pneumothorax. Mild to moderate degenerative disc disease within the cervical spine. IMPRESSION: No fractures within the cervical spine. ACT 112: Negative or not required by law. Electronically signed by: Austen Herrera M.D. 02/23/2021 7:58 PM
[2021-02-24] MEDS ORDERED: POLYETHYLENE (MIRALAX) 17 GM PACK PO PRN (01:08)
[2021-02-24] MEDS ORDERED: LEVALBUTEROL HCL 1.25 MG/3 ML NEB INH PRN (01:08)
[2021-02-24] MEDS ORDERED: NITROGLYCERIN SL 0.4 MG/TAB TAB SL PRN (01:08)
[2021-02-24] MEDS ORDERED: ONDANSETRON INJ 2 MG/ML 2 ML VIAL IV PRN (01:08)
[2021-02-24] MEDS ORDERED: ALBUTEROL HFA 8 GM INHALER INH PRN (01:08)
[2021-02-24] MEDS ORDERED: ACETAMINOPHEN 325 MG TAB PO PRN (01:08)
[2021-02-24 02:44] LABS: Base Excess ABG 8.1 mEq/L (-9-1.8); HCO3 ABG 40 mmol/L (19-24); Oxygen Saturation ABG 98.2 % (90-95); PCO2 ABG 106 mmHg (35-46); PO2 ABG 139 mmHg (80-95)
[2021-02-24 02:46] LABS: Allen Test POS (Pos)
[2021-02-24 02:53] LABS: pH ABG 7.19 (7.35-7.45)
[2021-02-24 04:39] LABS: Allen Test POS (Pos); Base Excess ABG 6.4 mEq/L (-9-1.8); HCO3 ABG 36 mmol/L (19-24); Oxygen Saturation ABG 93.3 % (90-95); PCO2 ABG 79 mmHg (35-46); PO2 ABG 71 mmHg (80-95); pH ABG 7.27 (7.35-7.45)
--- NOTE | 2021-02-24 05:04 | History and Physical Report ---
DATE OF ADMISSION: 02/23/2021. CHIEF COMPLAINT: Hypoxia. HISTORY OF PRESENT ILLNESS: This is an 85-year-old male with past medical history significant for myelodysplastic syndrome, hypertension, CAD , tachybrady syndrome, status post pacemaker, paroxysmal atrial fibrillation, history of asbestosis pleural plaque, COPD, history of prostate cancer, severe protein calorie malnutrition, presents with hypoxia. The patient was recently in the hospital and got discharged on 02/13/2021. He was here for acute hypoxic respiratory failure. Pulmonary medicine saw the patient and they did a spirometry, which was showing restrictive pattern. Nocturnal pulse oximetry was obtained and he was requiring 2 liters oxygen at night. He was supposed to get Sleep study, was supposed to be on BiPAP at nighttime, but the patient is not tolerating it. As per the , the patient is supposed to follow with pulmonary, Dr. Hernández, next week. His said, at home the insurance is not supplying his night oxygen because as per the , when he is walking he does not require any oxygen, he is requiring oxygen only in the nighttime, so she does not have any oxygen supply at home. Yesterday night, his oxygen saturation was going down into 80% and he seemed confused at that time. In the morning also, his oxygen saturation was not coming up that much, so that is the reason she brought the patient to the hospital. The patient earlier was talking to nursing staff, but later he went to sleep and it is very hard to arouse him and as per the also when he sleeps it is really hard to wake him up. So could not get any history from the patient. As per the , there was no complaint of any chest pain or any headache or belly pain. No nausea, no vomiting. Appetite is okay. He is eating regular diet okay, swallows okay. No nausea, no fevers, no cough, no diarrhea or constipation. Very poor ambulatory status. He walks with a walker slowly and he needs help of his and also with home health at home. Also they are having a hard time getting Eliquis as it is expensive , so they are transitioning to Coumadin at the end of this month. They still have some Eliquis tablets left at home, which the patient is taking. Hemodynamics are okay. He is saturating fine on OxyMask. ALLERGIES: CEPHALEXIN, LISINOPRIL, NIACIN. PAST MEDICAL HISTORY: As mentioned above. PAST SURGICAL HISTORY: Colonoscopy with endoscopic ultrasound, pacemaker, laparoscopic partial colectomy with coloproctostomy. MEDICATIONS: The patient is on albuterol 2 puffs inhalation q. 4 hours p.r.n., Lipitor 20 mg p.o. every other day, dorzolamide/timolol one drop ophthalmic b.i.d., Eliquis 5 mg p.o. b.i.d., glucosamine chondroitin 1 tablet p.o. a.m., Mucinex 1200 mg p.o. b.i.d., DuoNebs q.i.d., latanoprost one drop ophthalmic at bedtime, levalbuterol 1.25 mg inhalation q. 6 hours p.r.n., metoprolol succinate 25 mg p.o. b.i.d., mirtazapine 15 mg p.o. at bedtime, Certa-Caron antioxidant 1 tablet p.o. a.m., AREDS 1 capsule p.o. a.m., Anoro Ellipta inhalation daily. FAMILY HISTORY: Significant for no family history on file. SOCIAL HISTORY: , no smoking, no alcohol, no drug use. REVIEW OF SYSTEMS: Unobtainable at this time. PHYSICAL EXAMINATION: GENERAL: The patient is old and frail, drowsy, hard to arouse. VITAL SIGNS: Temperature 37, pulse 90, respiratory rate 17, blood pressure 123/62, oxygen 98% on OxyMask at 3-4 liters. HEENT: Pupils equal, round, and reactive to light. Oral mucosa dry. NECK: No JVD, no neck masses. CARDIOVASCULAR: S1 and S2 heard. Regular rate and rhythm. No murmur, no gallop. RESPIRATORY SYSTEM: Normal AP diameter. No accessory muscle use. No wheezing, no crackles. ABDOMEN: Soft, bowel sounds present. No distention. CENTRAL NERVOUS SYSTEM: drowsy, difficult to arouse. Could not do exam. EXTREMITIES: No edema, no erythema. LABORATORY DATA: WBC 4.6, hemoglobin 12.5, hematocrit 39.8, platelets 219. PT 10.8, INR 1.1, APTT 25.7. ABG, pH 7.33, pCO2 of 69, pO2 of 60, bicarbonate 26, oxygen 98% on room air. Sodium 140, potassium 4.5, chloride 103, bicarbonate 38, BUN 16, creatinine 0.6, serum glucose 97, calcium 8.9, magnesium 2.1. Troponin I less than 0.015. BNP 1049. SARS-CoV-2 PCR negative. IMAGING DATA: CT of the head, no acute findings. Cervical spine CT, no acute fractures of the cervical spine. Chest x-ray, cardiomegaly with mild central pulmonary vascular congestion, interval progression of small bilateral pleural effusions and bibasilar densities. EKG: Atrial paced rhythm with rate of 67, no acute ST changes seen. ASSESSMENT AND PLAN: This is an 85-year-old male who presents with ongoing issues with oxygen supply at home and hypoxia. 1. Acute hypoxic respiratory failure: The patient is supposed to be on 2 L in the nighttime. As per the , the insurance is not supplying his oxygen, so he was saturating only 80% last night and also oxygen saturation did not come up in the daytime. Currently saturating okay on 3 liters on OxyMask and his ABG showed pH of 7.33. The patient is supposed to be on BiPAP in the nighttime and get sleep study as outpatient, but not tolerating BiPAP. Chest x-ray showed mild progression of small bilateral pleural effusion, bibasilar densities. Does not seem to have any infectious process, follow the procalcitonin levels and supposed to follow up with pulmonary next week, Dr. Hernández. Will consult pulmonary while he is in the hospital. Continue his home inhalers and nebs and follow the repeat ABG in a.m. Social service consult to help with his oxygen supplies. 2. Coronary artery disease: Follows with cardiology. Continue his home medications of Lipitor, metoprolol succinate. The patient is also on Eliquis. 3. 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 Seems that his battery was changed in 2019. On Eliquis and metoprolol. Follow with cardiology. His recent echo showed mnud-in-[id number] valvular aortic stenosis, moderate aortic regurgitation, EF of 55% to 60%. RV systolic function is normal, LA is moderately dilated, RA side is normal. Mild mitral regurgitation, mild tricuspid regurgitation. 4. History of myelodysplastic syndrome: Follows with oncology. 5. Severe protein calorie malnutrition: Will consult dietitian. 6. Hypertension: Continue his metoprolol succinate 25 mg b.i.d. Will follow the blood pressure. 7. Deep venous thrombosis prophylaxis: Eliquis. CODE STATUS: DNR/DNI. DISPOSITION: Admit to [facility]. PT/OT. Social service to help with discharge planning. As he was still drowsy on the floor abg was repeated and showed ph 7.19, co2 106, po2 139,hco3 40,02 98 Placed on bipap and repeat abg Ph 7.27, co2 79, Po2 71, hco3 36, o2 93 on 2lts oxygen. Abg improving will follow repeat abg . Patient is DNR/DNI. Await pulmonary inputs. Job ID: [id number] [facility]
[2021-02-24 06:03] LABS: Basophils # (auto) 0.01 K/uL (0-0.2); Basophils % (auto) 0.2 %; Eosinophils # (auto) 0.07 K/uL (0-0.5); Eosinophils % (auto) 1.4 %; Hematocrit (blood only) 34.7 % (42-52); Hemoglobin 10.9 g/dL (14.0-18.0); Immature Granulocytes # (auto) 0.01 K/uL (0.00-0.02); Immature Granulocytes % (auto) 0.2 %; Lymphocytes # (auto) 1.14 K/uL (1.2-3.4); Lymphocytes % (auto) 22.2 %; Mean Corpuscular Hemoglobin 35.3 pg (25-34); Mean Corpuscular Hgb Conc 31.4 g/dL (32-36); Mean Corpuscular Volume 112.3 fL (80-100); Monocytes # (auto) 0.47 K/uL (0.11-0.59); Monocytes % (auto) 9.2 %; Neutrophils # (auto) 3.43 K/uL (1.4-6.5); Neutrophils % (auto) 66.8 %; Nucleated RBC # (auto) 0.02 K/uL (0-0); Nucleated RBC % (auto) 0.3 %; Platelet Count 178 K/uL (130-400); RDW Coefficient of Variation 21.1 % (11.5-14.5); RDW Standard Deviation 85.4 fL (36.4-46.3); Red Blood Count 3.09 M/uL (4.7-6.1); White Blood Count 5.13 K/uL (4.8-10.8)
[2021-02-24 06:32] LABS: Base Excess ABG 7.8 mEq/L (-9-1.8); HCO3 ABG 37 mmol/L (19-24); Oxygen Saturation ABG 92.4 % (90-95); PCO2 ABG 82 mmHg (35-46); PO2 ABG 69 mmHg (80-95); pH ABG 7.27 (7.35-7.45)
[2021-02-24 06:33] LABS: Allen Test POS (Pos)
[2021-02-24 06:36] LABS: Anisocytosis Present; Giant Platelets 1+; Macrocytosis Present; Ovalocytes 1+
[2021-02-24 06:46] LABS: Calcium 8.4 mg/dl (8.5-10.1); Creatinine Clr Calc Pharmacy 73.6 ml/min; Est GFR (African American) 99.6 ml/min; Magnesium 2.1 mg/dl (1.8-2.4); Potassium 4.4 mmol/L (3.5-5.1)
[2021-02-24] MEDS: ALBUT/IPRATROP 3MG/0.5MG NEB 3 ML VIAL INH SCH ×4 (07:25→19:18)
[2021-02-24] MEDS: APIXABAN 5 MG TABLET PO SCH ×2 (08:12→20:19)
[2021-02-24] MEDS: CEROVITE ADV FORMULA TAB PO SCH (08:13)
[2021-02-24] MEDS: METOPROLOL SUCC 25MG EXT REL TAB PO SCH ×2 (08:13→20:20)
[2021-02-24] MEDS: guaiFENesin 600 MG TABCR PO SCH ×2 (08:13→20:20)
--- NOTE | 2021-02-24 08:52 | Pulmonary Consultation ---
Date of Consultation February 24, 2021 Assessment & Plan (1) Hypoxia: Nima Baptiste is an 85yo male PMHx significant for MDS, hypertension, CAD and SSS s/p pacemaker, paroxysmal a-fib, and history of asbestos exposure who was admitted to [facility] on 02/24 for hypoxia. We were consulted for the hypoxia. Hypoxia Patient was discharged from [facility] on 02/13 with recommendation to use at least 2L NC at night via BiPAP, although patient has been unable to do this at home. Suspect progressive fatigue and hypoxia was due to hypoventilation in context of no BiPAP treatment, which is likely necessary for his unspecified lung disease. Per admission ABGs thus far, patient initially had worsening respiratory acidosis on admission that has been since improved with transition to BiPAP. Her initial hypercapnia coincided with hyperoxia; suspect that patient was initially over-oxygenated which suppressed respiratory drive. Patient has largely restrictive pattern per 02/09 spirometry (FVC 2.09 L, 62%, FEV1 1.66 L, 67%, FEV1/FVC 80%) as well as hypoxia to 80% at night during previo us hospitalization. He is a never-smoker, and review of CT from 12/27/2020 without evidence of emphysema or fibrosis. However he has reportedly lost ~50 pounds in the last year. Suspect multiple etiologies of chronically progressive hypoxia: He may have central sleep apnea vs mild asthma/COPD. Additionally he has been previously diagnosed with lower extremity polyneuropathy, and neuromuscular dysfunction may also be contributing to decreased respiratory drive. Lastly his chronic weight loss, advanced age, several recent hospitalizations, and extensive comorbidities are likely contributing to de conditioning and subsequent decreased respiratory drive. Recommendations: 1. Continue BiPAP to maintain oxygen saturation between 88-92% 2. Recommend trending ABGs 3. We will start Solu-Medrol 60mg IV BID to cover for possible restrictive vs. obstructive lung disease exacerbation 4. Recommend palliative care consult to discuss long-term goals of care in this elderly gentleman with multiple comorbidities and deconditioning Thank you for the consult. We will continue to follow along with you. (2) Abnormal PFTs (pulmonary function tests): (3) Shortness of breath: (4) Asbestos-induced pleural plaque: (5) Idiopathic polyneuropathy: (6) CAD (coronary artery disease): (7) Tachy-ruben syndrome: (8) History of permanent cardiac pacemaker placement: (9) Paroxysmal A-fib: (10) MDS (myelodysplastic syndrome): (11) Anemia: Anemia type: unspecified type Qualified Code(s): D64.9 - Anemia, unspecified Patient had restrictive pattern PFTs on 02/09. He has h/o smoking and [id number] was negative; Supervising Physician Co-Signing Physician Notes Patient seen and examined with resident physician. Constitutional: Elderly appearing male sitting up in a chair. Saturating well on room air. No apparent distress. Eyes: Pupils are equal round and reactive to light. Conjunctivae are normal. Anicteric sclera. Ears nose, mouth and throat: Mallampati class 2. Normal posterior oropharynx. Uvula is midline. Neck: Trachea is midline. Visual inspection is normal. Respiratory: Clear to auscultation bilaterally. No use of accessory muscles. No significant clubbing noted. Cardiovascular: Regular rate and rhythm. No murmurs. No edema. Gastrointestinal: Normal bowel sounds, soft, nontender and nondistended. No hepatosplenomegaly noted. Musculoskeletal: No cyanosis. Patient is able to move all extremities. Strength is 5 out of 5 in the upper and lower extremities. Skin: No rashes, warm dry and intact. Neurologic: Weakness noted in the lower extremities bilaterally. Psychiatric: Alert and oriented x3 with a euthymic affect. The etiology of the patient's acute hypercapnic respiratory failure is unclear. He also does have an element of chronic hypercapnic respiratory failure. Patient should be on BiPAP and should be discharged home on BiPAP. I strongly would recommend an evaluation by physical therapy and Occupational Therapy. There may be a respiratory neuromuscular weakness playing a role. Neurology consultation may be beneficial. Underlying central sleep apnea may be also playing a role. The pleural plaques seen on on the CT chest may also be contributing to an element of hypoventilation and restrictive physiology. Unclear whether he has underlying asthma. It is reasonable to treat him with an ICS/LABA inhaler. Continue IV Solu-Medrol for the possibility of an asthma exacerbation. Palliative care consultation is reasonable at this time. Prognosis overall is poor. History of Present Illness Reason for Consultation: shortness of breath Requesting Physician: Dr. Joya Attending Physician: Benja Lai MD History of Present Illness Nima Baptiste is an 85yo male PMHx significant for MDS, hypertension, CAD and SSS s/p pacemaker, paroxysmal a-fib, and history of asbestos exposure who was admitted to [facility] on 02/24 for hypoxia. We were consulted for the hypoxia. Patient was recently hospitalized here from 02/10 - 02/13 for acute hypoxic respiratory failure with uncertain etiology. He was discharged on 02/13 to [facility] but reportedly went home very shortly thereafter, and reportedly did not have access to oxygen or BiPAP at home despite being recommended to start these therapies on discharge. He subsequently had progressive oxygen desaturations at home, with SpO2 decreasing to 80s at night and into the morning with associated confusion and increased fatigue. History this morning was obtained largely via perusal of admission note, as patient is obtunded and arousable to painful stimuli only. Reportedly did not have fever/chills, cough, N/V, abdominal pain, urinary symptoms or recent sick contacts before this hospitalization. In the ED the patient desaturated to 88% SpO2 on RA and was subsequently placed on 2L supplemental O2 via NC which was transitioned to Oxymask, and then to BiPAP early this morning at ~3:30am. BPs have decreased from 120s/70s --> 90s/50s during this transition. Otherwise patient has been afebrile with adequate respiratory rates. ABGs: overnight, pH initially decreased from 7.33 to 7.19 but has since increased to 7.27, and pCO2 initially increased from 69 to 106 but has since decreased to 82. CXR showing interval progression of small bilateral pleural effusions and bibasilar densities (compared to previous hospitalization). Allergies Allergy/AdvReac Type Severity Reaction Status Date / Time cephalexin Allergy Severe Rash Unverified 02/23/21 19:31 lisinopril Allergy Unknown Rxn not Verified 02/23/21 19:31 stated niacin Allergy Unknown Reaction Verified 02/23/21 19:31 not stated Home Medications Medication Instructions Recorded Confirmed Type atorvastatin 20 mg tablet (Lipitor) 20 mg PO Q2D 01/21/19 02/23/21 History dorzolamide 22.3 mg-timolol 6.8 1 drp OPB BID 01/21/19 02/23/21 History mg/mL eye drops glucosamine-chondroitin 250 mg-200 1 tab PO QAM 01/21/19 02/23/21 History mg tablet (Osteo Bi-Flex) vitamins A,C,S-pnem-nenhqa 14,320 1 cap PO QAM 12/17/20 02/23/21 History unit-226 mg-200 unit capsule (PreserVision AREDS) albuterol sulfate 90 mcg/actuation 2 puff INHALATION Q4H PRN 02/10/21 02/23/21 History aerosol inhaler apixaban 5 mg tablet (Eliquis) 5 mg PO BID 02/10/21 02/23/21 History ipratropium 0.5 mg-albuterol 3 mg 3 ml INHALATION QID 02/10/21 02/23/21 History (2.5 mg base)/3 mL nebulization soln latanoprost 0.005 % eye drops 1 drp OPB HS 02/10/21 02/23/21 History metoprolol succinate 25 mg 25 mg PO BID 02/10/21 02/23/21 History tablet,extended release 24 hr mirtazapine 15 mg tablet 15 mg PO HS 02/10/21 02/23/21 History guaifenesin 600 mg tablet, 1,200 mg PO Q12 #30 tab 02/13/21 02/23/21 Rx extended release 12 hr (Mucinex) levalbuterol HCl 1.25 mg/3 mL 1.25 mg INHALATION Q6R PRN #3 ml 02/13/21 02/23/21 Rx solution for nebulization multivitamin-ferrous 1 tab PO QAM #30 tab 02/13/21 02/23/21 Rx fumarate-folic acid 18 mg-400 mcg tablet (Certavite-Antioxidant) umeclidinium 62.5 mcg-vilanterol 1 ea INHALATION DAILY #14 ea 02/13/21 02/23/21 Rx 25 mcg/actuation powdr for inhalation (Anoro Ellipta) Patient History Medical History CAD (coronary artery disease) History of nephrolithiasis History of prostate cancer HTN (hypertension) Hyperlipidemia Macular degeneration MDS (myelodysplastic syndrome) Paroxysmal A-fib Tachy-ruben syndrome Surgical History History of prostatectomy 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, battery recently replaced 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 Family History Mother Coronary heart disease Social History Smoking Status: Never smoker Second Hand Exposure: Yes (not currently); Hx Alcohol Use: No Hx Substance Use: No Preferred Language: Estonian Communication Ability: Effective Abalone Fisherman Required: No Beliefs That Will Affect Care: None Current Living Situation: Spouse Other Information That Helps Us Care for You: No Feels Safe at Home: Yes Safety Concerns: Feels Safe At This Time Assistive Devices: BiPap Assistive Devices Comment: Pt does not have any dentures, glasses, MCKEON's present at hospital Review of Systems Review of Systems: Unobtainable due to cognitive status Physical Exam Physical Exam: General: Patient is obtunded, responds to painful stimuli only, GCS 10 HEENT: Atraumatic, normocephalic. Pulm: Decreased air movement bilaterally, particularly in bilateral bases. +end- expiratory wheezes in bilateral bases, -rales, -rhonchi. Symmetrical chest rise. No increase work of breathing or respiratory distress while on BiPAP. Cardiac: RRR, -mrg. Radial pulses intact and symmetrical. No LE edema. Abdominal: soft, non-tender, non-distended, BS x 4 Skin: warm, dry, no rash Results & Data Results & Data ([facility]) Vital Signs (Past 12 Hours) Vital Signs Temp Pulse Pulse Pulse Resp BP BP 02/24/21 08:24 90/58 L 02/24/21 07:58 69 92/55 L 02/24/21 07:47 71 02/24/21 07:26 61 61 14 02/24/21 06:31 65 125/61 02/24/21 03:30 36.4 C L 62 17 98/64 L 02/24/21 03:25 60 20 02/24/21 03:15 63 02/24/21 02:43 36.5 C 64 20 127/68 02/23/21 23:42 90 17 02/23/21 23:20 64 02/23/21 23:10 62 02/23/21 23:02 63 14 02/23/21 22:30 64 18 123/62 02/23/21 22:00 66 18 126/61 02/23/21 21:30 63 17 133/61 02/23/21 21:00 62 17 131/60 02/23/21 20:30 65 19 116/61 Pulse Ox 02/24/21 08:24 02/24/21 07:58 99 02/24/21 07:47 02/24/21 07:26 94 02/24/21 06:31 02/24/21 03:30 93 02/24/21 03:25 92 02/24/21 03:15 02/24/21 02:43 100 02/23/21 23:42 02/23/21 23:20 98 02/23/21 23:10 97 02/23/21 23:02 98 02/23/21 22:30 100 02/23/21 22:00 99 02/23/21 21:30 100 02/23/21 21:00 99 02/23/21 20:30 91 Resident Activity Tracking Resident Involvement: Resident Care Provided Care Provided: Adult Hospital Medicine
[2021-02-24] MEDS ORDERED: UMECLIDINIUM/VILANTEROL 62.5/25MCG 7 PUFFS/INHALER INH SCH (09:00)
[2021-02-24] MEDS ORDERED: NON-FORMULARY MEDICATION (Glucosamine-Chondroitin [Osteo Bi-Flex] 250-200 mg Tablet) PO SCH (09:00)
[2021-02-24] MEDS: ALBUMIN 25% 12.5 GM/50 ML VIAL IV SCH ×2 (09:15→10:13)
--- NOTE | 2021-02-24 09:19 | Hospitalist Progress Note ---
Date of Service February 24, 2021 Assessment & Plan Admission and Anticipated Discharge Date Admission Date: February 23, 2021 Subjective Patient seen and examined this morning, he is currently still on BiPAP, ABGs without much improvement. He is very difficult to arouse, opens his eyes only for about a second. Moves his upper extremities again for just a bit of time. Patient's was updated overnight and early this morning by the shank faker. She confirmed DNR/DNI status. I called patient's as well this morning, and confirmed DNR/DNI status. I updated her that patient is not doing well current ly, he is somnolent, on BiPAP and difficult to arouse. His blood pressure is also on lower side, systolic blood pressure taken manually is 90, albumin ordered. Discussed possible vasopressors and central line placement, she declines central line, vasopressors acceptable if able to do peripherally. Dr. Soto pulmonary and ICU physician, aware of the patient as of this morning. Resident physician evaluating the patient this morning at the bedside. Per patient was discharged from [facility] on February 22. However he was discharged without any oxygen. He was then seen by [facility] nurse on February 23. Per , he was desaturating at night, however his oxygen was okay when he was walking. Asked the about visiting the patient as he is critically ill, and discussed this with the charge nurse on the floor, visitation granted. Owen Lai MD Results & Data Results & Data ([facility]) Vital Signs (Past 12 Hours) Vital Signs Temp Pulse Pulse Pulse Resp BP BP 02/24/21 09:13 36.2 C L 58 L 14 113/70 02/24/21 08:24 90/58 L 02/24/21 07:58 69 92/55 L 02/24/21 07:47 71 02/24/21 07:26 61 61 14 02/24/21 06:31 65 125/61 02/24/21 03:30 36.4 C L 62 17 98/64 L 02/24/21 03:25 60 20 02/24/21 03:15 63 02/24/21 02:43 36.5 C 64 20 127/68 02/23/21 23:42 90 17 02/23/21 23:20 64 02/23/21 23:10 62 02/23/21 23:02 63 14 02/23/21 22:30 64 18 123/62 02/23/21 22:00 66 18 126/61 02/23/21 21:30 63 17 133/61 Pulse Ox 02/24/21 09:13 98 02/24/21 08:24 02/24/21 07:58 99 02/24/21 07:47 02/24/21 07:26 94 02/24/21 06:31 02/24/21 03:30 93 02/24/21 03:25 92 02/24/21 03:15 02/24/21 02:43 100 02/23/21 23:42 02/23/21 23:20 98 02/23/21 23:10 97 02/23/21 23:02 98 02/23/21 22:30 100 02/23/21 22:00 99 02/23/21 21:30 100
[2021-02-24] MEDS: DORZOLAMIDE/TIMOLOL 22.3/6.8MG/ML 10 ML BTL OPB SCH ×2 (10:15→20:19)
[2021-02-24] MEDS: methylPREDNISolone 60 MG in SYRINGE 0 ML IV SCH ×2 (10:56→20:20)
[2021-02-24 16:26] LABS: Base Excess ABG 0.9 mEq/L (-9-1.8); HCO3 ABG 28 mmol/L (19-24); Oxygen Saturation ABG 94.3 % (90-95); PCO2 ABG 53 mmHg (35-46); PO2 ABG 71 mmHg (80-95); pH ABG 7.33 (7.35-7.45)
[2021-02-24 16:29] LABS: Allen Test POS (Pos)
[2021-02-24] MEDS ORDERED: LATANOPROST 0.005% OP SOLN 2.5 ML BTL OPB SCH (21:00)
[2021-02-24] MEDS ORDERED: MIRTAZAPINE TAB 15 MG TAB PO SCH (21:00)
--- NOTE | 2021-02-25 05:33 | Electrocardiogram Report ---
Test Reason : Blood Pressure : / mmHG Vent. Rate : 067 BPM Atrial Rate : 067 BPM P-R Int : 172 ms QRS Dur : 094 ms QT Int : 408 ms P-R-T Axes : 071 044 042 degrees QTc Int : 431 ms Atrial-paced rhythm Abnormal ECG When compared with ECG of 12-FEB-2021 03:25, Electronic atrial pacemaker has replaced Atrial fibrillation Vent. rate has decreased BY [address] no longer depressed in Anterior leads T wave inversion no longer evident in Anterior leads Confirmed by Daryl Martinez ([id number]) on 02/25/2021 5:33:14 AM Referred By: REFERRED SELF Confirmed By:Daryl Martinez
[2021-02-25] MEDS: ALBUT/IPRATROP 3MG/0.5MG NEB 3 ML VIAL INH SCH ×3 (07:19→15:20)
[2021-02-25] MEDS: CEROVITE ADV FORMULA TAB PO SCH (08:04)
[2021-02-25] MEDS: guaiFENesin 600 MG TABCR PO SCH (08:04)
[2021-02-25] MEDS: METOPROLOL SUCC 25MG EXT REL TAB PO SCH (08:04)
[2021-02-25] MEDS: DORZOLAMIDE/TIMOLOL 22.3/6.8MG/ML 10 ML BTL OPB SCH (08:04)
[2021-02-25] MEDS: APIXABAN 5 MG TABLET PO SCH (08:04)
[2021-02-25] MEDS: methylPREDNISolone 60 MG in SYRINGE 0 ML IV SCH (08:04)
[2021-02-25] MEDS ORDERED: FLUTICASONE/VILANTEROL 200/25MCG 14 PUFFS/INHALER INH SCH (09:00)
--- NOTE | 2021-02-25 14:38 | Hospitalist Progress Note ---
Date of Service February 24, 2021 Assessment & Plan (1) Acute hypoxemic respiratory failure: Plan: Acute respiratory failure with hypoxia and hypercapnia Metabolic encephalopathy (secondary to above) This is an 85-year-old male who presents with ongoing issues with oxygen supply at home and hypoxia. 1. Acute hypoxic respiratory failure: The patient is supposed to be on 2 L in the nighttime. As per the , the insurance is not supplying his oxygen, so he was saturating only 80% last night and also oxygen saturation did not come up in the daytime. On admission initially saturating okay on 3 liters on OxyMask and his ABG showed pH of 7.33. The patient is supposed to be on BiPAP in the nighttime and get sleep study as outpatient, but not tolerating BiPAP. Chest x-ray showed mild progression of small bilateral pleural effusion, bibas ilar densities. Does not seem to have any infectious process, follow the procalcitonin levels and supposed to follow up with pulmonary next week, Dr. Hernández. Will consult pulmonary while he is in the hospital. Continue his home inhalers and nebs and follow the repeat ABG in a.m. Social service consult to help with his oxygen supplies. Soon after admission , overnight, however patient became less responsive, and ABG was repeated, showed significant respiratory acidosis, PCO2 106 and pH 7.19. He was placed on BiPAP. 02/24 - This a.m. still barely responsive, and on BiPAP, however recovered and examined down in the afternoon, fully alert oriented and actually breathing comfortably on room air. Discussed in detail with case management about the oxygen supply prior to discharge. Per the patient and his , they wish to be discharged home from the hospital. 2. Coronary artery disease: Follows with cardiology. Continue his home medications of Lipitor, metoprolol succinate. The patient is also on Eliquis. 3. 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 Seems that his battery was changed in 2019. On Eliquis and metoprolol. Follow with cardiology. His recent echo showed [id number] valvular aortic stenosis, moderate aortic regurgitation, EF of 55% to 60%. RV systolic function is normal, LA is moderately dilated, RA side is normal. Mild mitral regurgitation, mild tricuspid regurgitation. 4. History of myelodysplastic syndrome: Follows with oncology. 5. Severe protein calorie malnutrition: dietitian consulted. 6. Hypertension: Continue his metoprolol succinate 25 mg b.i.d. Will follow the blood pressure. DVT prophylaxis: Eliquis. CODE STATUS: DNR/DNI. Admission and Anticipated Discharge Date Admission Date: February 23, 2021 Subjective Patient seen and examined this morning, at that time still on BiPAP, which was started overnight. ABGs without much improvement. He was very difficult to arouse. Pulmonary medicine contacted as well as pt's . She confirmed DNR/DNI status. Per patient was discharged from [facility] on February 22. However he was discharged without any oxygen. He was then seen by [facility] nurse on February 23. Per , he was desaturating at night, however his oxygen was okay when he was walking. Patient then seen again in the afternoon, after BiPAP he was actually much improved, and then refused BiPAP. On my evaluation in the afternoon he is sitting in the chair, on room air, in no acute distress. Does not remember events leading to the hospital stay. Patient's was at the bedside earlier visiting him. Case management discussed with options after discharge, and they would like to go home. Discussed with that we will need to make sure that oxygen supplies are set up for him as it is very dangerous for him to be without oxygen. Patient had nocturnal study done during last hospitalization and patient desaturates at night. In the afternoon patient had no complaints, no chest pain shortness of breath dizziness no abdominal pain, fevers chills Review of Systems Review of Systems: All systems reviewed & are unremarkable except as noted in Subjective Physical Exam Physical Exam: GENERAL: elderly frail male in NAD, breathing comfortably on RA (early this morning required BiPAP and barely responsive) HEENT: NC/AT, EOMI, Pupils equal, round, and reactive to light. Oral mucosa dry. NECK: No JVD, no neck masses. CARDIOVASCULAR: S1 and S2 heard. Regular rate and rhythm. No murmur, no gallop. RESPIRATORY: Normal AP diameter. No accessory muscle use. No wheezing, rhonchi, no crackles. ABDOMEN: Soft, bowel sounds present. No distention. NEURO: Currently alert and oriented answering questions appropriately, however does not recall events leading to hospital stay EXTREMITIES: No edema, no erythema. Results & Data Results & Data ([facility]) Vital Signs (Past 12 Hours)
--- NOTE | 2021-02-25 14:52 | Hospitalist Progress Note ---
Date of Service February 25, 2021 Assessment & Plan (1) Acute hypoxemic respiratory failure: Plan: Acute respiratory failure with hypoxia and hypercapnia Metabolic encephalopathy (secondary to above) This is an 85-year-old male who presents with ongoing issues with oxygen supply at home and hypoxia. 1. Acute hypoxic respiratory failure: The patient is supposed to be on 2 L in the nighttime. As per the , the insurance is not supplying his oxygen, so he was saturating only 80% last night and also oxygen saturation did not come up in the daytime. On admission initially saturating okay on 3 liters on OxyMask and his ABG showed pH of 7.33. The patient is supposed to be on BiPAP in the nighttime and get sleep study as outpatient, but not tolerating BiPAP. Chest x-ray showed mild progression of small bilateral pleural effusion, bibas ilar densities. Does not seem to have any infectious process, follow the procalcitonin levels and supposed to follow up with pulmonary next week, Dr. Hernández. Will consult pulmonary while he is in the hospital. Continue his home inhalers and nebs and follow the repeat ABG in a.m. Social service consult to help with his oxygen supplies. Soon after admission , overnight, however patient became less responsive, and ABG was repeated, showed significant respiratory acidosis, PCO2 106 and pH 7.19. He was placed on BiPAP. 02/24 - a.m. still barely responsive, and on BiPAP, however recovered and examined again in the afternoon, fully alert oriented and actually breathing comfortably on room air. 02/25 -patient is awake alert oriented, currently on room air, however we will obtain 2 step study to evaluate for need for oxygen Per 2 step, patient should use 1 L continuously. Per previous nocturnal study patient should have 2 L continuously at night at least. As previously recommended, sleep study as outpatient should be done. Pulmonary follow-up also arranged. Discussed in detail with case management about the oxygen supply prior to discharge. Per the patient and his , they wish to be discharged home from the hospital. 2 . Coronary artery disease: Follows with cardiology. Continue his home medications of Lipitor, metoprolol succinate. The patient is also on Eliquis. 3. 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 Seems that his battery was changed in 2019. On Eliquis and metoprolol. Follow with cardiology. His recent echo showed [id number] valvular aortic stenosis, moderate aortic regurgitation, EF of 55% to 60%. RV systolic function is normal, LA is moderately dilated, RA side is normal. Mild mitral regurgitation, mild tricuspid regurgitation. 4. History of myelodysplastic syndrome: Follows with oncology. 5. Severe protein calorie malnutrition: dietitian consulted. 6. Hypertension: Continue his metoprolol succinate 25 mg b.i.d. Will follow the blood pressure. DVT prophylaxis: Eliquis. CODE STATUS: DNR/DNI. Admission and Anticipated Discharge Date Admission Date: February 23, 2021 Subjective Patient seen in follow-up of hypoxic hypercarbic respiratory failure. Currently laying in bed in no acute distress, breathing comfortably on room air. Yesterday morning morning, pt on BiPAP, and difficult to arouse. Pulmonary medicine contacted as well as pt's . She confirmed DNR/DNI status. Per patient was discharged from [facility] on Sunday, February 22. However he was discharged without any oxygen. He was then seen by [facility] nurse on February 23. Per , he was desaturating at night, however his oxygen was okay when he was walking. Case management discussed with options after discharge, and they would like to go home. Discussed with that we will need to make sure that oxygen supplies are set up for him as it is very dangerous for him to be without o xygen. Patient had nocturnal study done during last hospitalization and patient desaturates at night. Currently patient has no complaints, no chest pain shortness of breath dizziness no abdominal pain, fevers chills 2 step study ordered Review of Systems Review of Systems: All systems reviewed & are unremarkable except as noted in Subjective Physical Exam Physical Exam: GENERAL: elderly frail male in NAD, breathing comfortably on RA HEENT: NC/AT, EOMI, Pupils equal, round, and reactive to light. Oral mucosa dry. NECK: No JVD, no neck masses. CARDIOVASCULAR: S1 and S2 heard. Regular rate and rhythm. No murmur, no love p. RESPIRATORY: Normal AP diameter. No accessory muscle use. No wheezing, rhonchi, no crackles. ABDOMEN: Soft, bowel sounds present. No distention. NEURO: Currently alert and oriented answering questions appropriately, speech fluent, moves extremities EXTREMITIES: No edema, no erythema. Results & Data Results & Data ([facility]) Vital Signs (Past 12 Hours) Vital Signs Temp Pulse Pulse Pulse Pulse Pulse Pulse 02/25/21 13:00 64 71 71 02/25/21 11:09 02/25/21 11:08 36.4 C L 60 02/25/21 10:15 65 02/25/21 07:30 36.5 C 02/25/21 07:18 02/25/21 03:35 36.5 C 61 Pulse Pulse Resp Resp Resp Resp Resp 02/25/21 13:00 64 16 18 18 16 02/25/21 11:09 70 18 02/25/21 11:08 18 02/25/21 10:15 02/25/21 07:30 69 16 02/25/21 07:18 65 18 02/25/21 03:35 17 BP BP Pulse Ox Pulse Ox Pulse Ox Pulse Ox Pulse Ox 02/25/21 13:00 96 94 86 L 88 L 02/25/21 11:09 88 L 02/25/21 11:08 106/64 88 L 02/25/21 10:15 02/25/21 07:30 108/64 100 02/25/21 07:18 99 02/25/21 03:35 101/62 99 Medications Administered Current Inpatient Medications Acetaminophen (Acetaminophen 325 Mg Tab) 650 mg PO Q4H PRN PRN Reason: Pain or Fever Stop: 03/26/21 01:07 Albuterol (Albuterol Hfa 8 Gm Inhaler) 2 puffs INH Q4H PRN PRN Reason: Wheezing and SOB Stop: 03/26/21 01:07 Albuterol (Albut/Ipratrop 3mg/0.5mg Neb 3 Ml Vial) 3 ml INH QIDR DUC Stop: 03/26/21 06:59 Last Admin: 02/25/21 11:08 Dose: 3 ml Documented by: Apixaban (Apixaban 5 Mg Tablet) [address] [facility] Stop: 03/26/21 08:59 Last Admin: 02/25/21 08:04 Dose: 5 mg Documented by: Atorvastatin Calcium (Atorvastatin 20 Mg Tab) 20 mg PO Q2D@2100 [facility] Stop: 03/27/21 20:59 Dorzolamide/Timolol (Dorzolamide/Timolol 22.3/6.8mg/Ml 10 Ml Btl) [address] [facility] Stop: 03/26/21 08:59 Last Admin: 02/25/21 08:04 Dose: 1 drops Documented by: Fluticasone/Vilanterol (Fluticasone/Vilanterol 200/25mcg 14 Puffs/Inhaler) [address] [facility] Stop: 03/27/21 08:59 Last Admin: 02/25/21 08:04 Dose: 1 puffs Documented by: Guaifenesin (Guaifenesin 600 Mg Tabcr) 1,200 mg PO Q12 DUC Stop: 03/26/21 08:59 Last Admin: 02/25/21 08:04 Dose: 1,200 mg Documented by: Methylprednisolone 60 mg/ (Syringe) 0.96 mls @ 1.5 mls/min IV BID [facility] Stop: 03/26/21 09:29 Last Admin: 02/25/21 08:04 Dose: 1.5 mls/min Documented by: Latanoprost (Latanoprost 0.005% Op Soln 2.5 Ml Btl) [address] [facility] Stop: 03/26/21 20:59 Last Admin: 02/24/21 20:20 Dose: 1 drops Documented by: Levalbuterol HCl (Levalbuterol Hcl 1.25 Mg/3 Ml Neb) 1.25 mg INH Q6R PRN PRN Reason: shortness of breath or wheezing Stop: 03/26/21 01:07 Metoprolol Succinate (Metoprolol Succ 25mg Ext Rel Tab) [address] [facility] Stop: 03/26/21 08:59 Last Admin: 02/25/21 08:04 Dose: 25 mg Documented by: Mirtazapine (Mirtazapine Tab 15 Mg Tab) [address] [facility] Stop: 03/26/21 20:59 Last Admin: 02/24/21 20:21 Dose: 15 mg Documented by: Multivitamins/Minerals (Cerovite Adv Formula Tab) [address] [facility] Stop: 03/26/21 08:59 Last Admin: 02/25/21 08:04 Dose: 1 tab Documented by: Nitroglycerin (Nitroglycerin Sl 0.4 Mg/Tab Tab) 0.4 mg SL UD PRN PRN Reason: Chest Pain Stop: 03/26/21 01:07 Ondansetron HCl (Ondansetron Inj 2 Mg/Ml 2 Ml Vial) 4 mg IV Q6H PRN PRN Reason: Nausea Stop: 03/26/21 01:07 Polyethylene Glycol (Polyethylene (Miralax) 17 Gm Pack) 17 gm PO DAILY PRN PRN Reason: Constipation Stop: 03/26/21 01:07
--- NOTE | 2021-02-25 15:09 | Discharge Summary ---
Date of Service February 25, 2021 Admission HPI Per Admitting Provider This is an 85-year-old male with past medical history significant for myelodysplastic syndrome, hypertension, CAD , tachybrady syndrome, status post pacemaker, paroxysmal atrial fibrillation, history of asbestosis pleural plaque, COPD, history of prostate cancer, severe protein calorie malnutrition, presents with hypoxia. The patient was recently in the hospital and got discharged on 02/13/2021. He was here for acute hypoxic respiratory failure. Pulmonary medicine saw the patient and they did a spirometry, which was showing restrictive pattern. Nocturnal pulse oximetry was obtained and he was requiring 2 liters oxygen at night. He was supposed to get Sleep study, was supposed to be on BiPAP at nighttime, but the patient is not tolerating it. As per the , the patient is supposed to follow with pulmonary, Dr. Hernández, next week. His said, at home the insurance is not supplying his night oxygen because as per the , when he is walking he does not require any oxygen, he is requiring oxygen only in the nighttime, so she does not have any oxygen supply at home. Yesterday night, his oxygen saturation was going down into 80% and he seemed confused at that time. In the morning also, his oxygen saturation was not coming up that much, so that is the reason she brought the patient to the hospital. The patient earlier was talking to nursing staff, but later he went to sleep and it is very hard to arouse him and as per the also when he sleeps it is really hard to wake him up. So could not get any history from the patient. As per the , there was no complaint of any chest pain or any headache or belly pain. No nausea, no vomiting. Appetite is okay. He is eating regular diet okay, swallows okay. No nausea, no fevers, no cough, no diarrhea or constipation. Very poor ambulatory status. He walks with a walker slowly and he needs help of his and also with home health at home. Also they are having a hard time getting Eliquis as it is expensive , so they are tra nsitioning to Coumadin at the end of this month. They still have some Eliquis tablets left at home, which the patient is taking. Hemodynamics are okay. He is saturating fine on OxyMask. Admission Exam Per Admitting Provider GENERAL: The patient is old and frail, drowsy, hard to arouse. VITAL SIGNS: Temperature 37, pulse 90, respiratory rate 17, blood pressure 123/62, oxygen 98% on OxyMask at 3-4 liters. HEENT: Pupils equal, round, and reactive to light. Oral mucosa dry. NECK: No JVD, no neck masses. CARDIOVASCULAR: S1 and S2 heard. Regular rate and rhythm. No murmur, no gallop. RESPIRATORY SYSTEM: Normal AP diameter. No accessory muscle use. No wheezing, no crackles. ABDOMEN: Soft, bowel sounds present. No distention. CENTRAL NERVOUS SYSTEM: drowsy, difficult to arouse. Could not do exam. EXTREMITIES: No edema, no erythema. Principal Diagnosis Acute hypoxic and hypercapnic respiratory failure Nocturnal hypoxia Discharge Exam GENERAL: elderly frail male in NAD, breathing comfortably on RA HEENT: NC/AT, EOMI, Pupils equal, round, and reactive to light. Oral mucosa dry. NECK: No JVD, no neck masses. CARDIOVASCULAR: S1 and S2 heard. Regular rate and rhythm. No murmur, no gallop. RESPIRATORY: Normal AP diameter. No accessory muscle use. No wheezing, rhonchi, no crackles. ABDOMEN: Soft, bowel sounds present. No distention. NEURO: Currently alert and oriented answering questions appropriately, speech fluent, moves extremities EXTREMITIES: No edema, no erythema. Discharge Data Allergies Allergy/AdvReac Type Severity Reaction Status Date / Time cephalexin Allergy Severe Rash Unverified 02/23/21 19:31 lisinopril Allergy Unknown Rxn not Verified 02/23/21 19:31 stated niacin Allergy Unknown Reaction Verified 02/23/21 19:31 not stated Consultations 02/23/21 20:38 ED Decision to Admit Stat 02/24/21 08:00 Consult Pulmonology Routine 02/24/21 15:02 Consult Palliative Care Routine Ordered Studies 02/23/21 18:46 CT cervical spine wo con Stat IMPRESSION: No fractures within the cervical spine. CT head/brain wo con Stat Impression: No acute intracranial abnormality. Atrophy and microvascular ischemic changes. Hospital Course (1) Acute hypoxemic respiratory failure: Acute respiratory failure with hypoxia and hypercapnia Metabolic encephalopathy (secondary to above) This is an 85-year-old male who presents with ongoing issues with oxygen supply at home and hypoxia. 1. Acute hypoxic respiratory failure: The patient is supposed to be on 2 L in the nighttime. As per the , the insurance is not supplying his oxygen, so he was saturating only 80% last night and also oxygen saturation did not come up in the daytime. On admission initially saturating okay on 3 liters on OxyMask and his ABG showed pH of 7.33. The patient is supposed to be on BiPAP in the nighttime and get sleep study as outpatient, but not tolerating BiPAP. Chest x-ray showed mild progression of small bilateral pleural effusion, bibasilar densities. Does not seem to have any infectious process, follow the procalcitonin levels and supposed to follow up with pulmonary next week, Dr. Hernández. Will consult pulmonary while he is in the hospital. Continue his home inhalers and nebs and follow the repeat ABG in a.m. Social service consult to help with his oxygen supplies. Soon after admission , overnight, however patient became less responsive, and ABG was repeated, showed significant respiratory acidosis, PCO2 106 and pH 7.19. He was placed on BiPAP. 02/24 - a.m. still barely responsive, and on BiPAP, however recovered and examined again in the afternoon, fully alert oriented and actually breathing co mfortably on room air. 02/25 -patient is awake alert oriented, currently on room air, however we will obtain 2 step study to evaluate for need for oxygen Per 2 step, patient should use 1 L continuously. Per previous nocturnal study patient should have 2 L continuously at night at least. As previously recommended, sleep study as outpatient should be done. Pulmonary follow-up also arranged. Discussed in detail with case management about the oxygen supply prior to discharge. Per the patient and his , they wish to be discharged home from the hospital. 2. Coronary artery disease: Follows with cardiology. Continue his home medications of Lipitor, metoprolol succinate. The patient is also on Eliquis. 3. 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 Seems that his battery was changed in 2019. On Eliquis and metoprolol. Follow with cardiology. His recent echo showed mild-to- moderate valvular aortic stenosis, moderate aortic regurgitation, EF of 55% to 60%. RV systolic function is normal, LA is moderately dilated, RA side is normal. Mild mitral regurgitation, mild tricuspid regurgitation. 4. History of myelodysplastic syndrome: Follows with oncology. 5. Severe protein calorie malnutrition: dietitian consulted. 6. Hypertension: Continue his metoprolol succinate 25 mg b.i.d. Will follow the blood pressure. DVT prophylaxis: Eliquis. CODE STATUS: DNR/DNI. Home Health Attestation I certify that this patient is under my care and that I, or a physicians ssn/ssbn assistant navigator working with me, had a face to-face encounter that meets the home health [id number] encounter requirements with this patient. The encounter with the patient was in whole, or in part, for the following medical condition, which is the primary reason for home health care (list medical condition): I certify that, based on my findings, the following services are medically necessary home health services: My clinical findings support the need for the above services because: OT Assess ADL Status and Restore Function w ADLs PT Gait and Balance Training, Strengthening and Safety Skilled Nsg Assessment Further, I certify that my clinical findings support that this patient is homebound (i.e. absences from home require considerable and taxing effort and are for medical reasons or yazidi services or infrequently or of short duration when for other reasons) because: Transportation Assistance/Unable to Leave Home Unassisted Certification for Home Health Services: Based on the above findings, I certify that this patient is confined to the home and needs intermittent halfway care, physical therapy and/or speech therapy or continues to need occupational therapy. The patient is under my care, and I have initiated the establishment of the plan of care. This patient will be followed by a physician who will periodically review the plan of care. Total Time Total Time Spent Total Time Spent (In Minutes): 40 Discharge Plan Discharge Items Patient Disposition: Home - Home Health Services Reason For Visit: SOB, HYPOXIA Discharge Diagnosis: Acute hypoxic and hypercapnic respiratory failure Nocturnal hypoxia Activity: Per Instructions section Non-emergency contact: Primary Care Provider and Regional Wildlife Agent Call non-emergency contact if: you have any medication questions and your symptoms worsen Follow-up/Referrals: Elizabeth Jose MD [Primary Care Provider] - (Date & Time 03/03/2021 2:20 PM Provider Elizabeth Jose MD Department General Internal Medicine [facility] ) Diet: Regular Addtl Attending Provider Instructions: Follow-up with your primary care doctor, the appointment was scheduled for you for March 03. Also follow-up with pulmonary medicine as discussed previously. It is important that you use your oxygen as prescribed. You should always have 2 L of oxygen on when you sleep. It is recommended that you have a sleep study done. You should also use 1 L of oxygen during the day. Use supplemental oxygen, to keep your oxygen saturations at 88 to 92%. For pain at your rib cage, you can use Tylenol up to 3000 mg a day. You can also apply lidocaine patch (as you have on now). Pending Studies at Discharge: No Stand-Alone Forms: My [facility], Smoking Cessation Medications and DC Order Prescriptions: New lidocaine 5 % Adhesive Patch,Medicated 1 patch transdermal QAM Qty: 15 RF: 0 Continued atorvastatin [Lipitor] 20 mg tablet 20 mg PO Q2D RF: 0 dorzolamide-timolol 22.3-6.8 mg/mL Drops 1 drp OPB BID RF: 0 glucosamine-chondroitin [Osteo Bi-Flex] 250-200 mg Tablet 1 tab PO QAM RF: 0 PreserVision AREDS [id number] Capsule 1 cap PO QAM RF: 0 latanoprost 0.005 % drops 1 drp OPB HS RF: 0 albuterol sulfate 90 mcg/actuation HFA aerosol inhaler 2 puff INHALATION Q4H PRN (Reason: Wheezing and SOB) RF: 0 Eliquis 5 mg tablet 5 mg PO BID RF: 0 metoprolol succinate 25 mg tablet extended release 24 hr 25 mg PO BID RF: 0 ipratropium-albuterol 0.5 mg-3 mg(2.5 mg base)/3 mL solution for nebulization 3 ml INHALATION QID RF: 0 mirtazapine 15 mg tablet 15 mg PO HS RF: 0 Anoro Ellipta 62.5-25 mcg/actuation Blister With Device 1 ea inhalation DAILY Qty: 14 RF: 0 guaifenesin [Mucinex] 600 mg Tablet Extended Release 12hr 1,200 mg PO Q12 Qty: 30 RF: 0 Certavite-Antioxidant 18-400 mg-mcg Tablet 1 tab PO QAM Qty: 30 RF: 0 levalbuterol HCl 1.25 mg/3 mL Solution For Nebulization 1.25 mg inhalation Q6R PRN (Reason: shortness of breath or wheezing) Qty: 3 RF: 0 Discharge Orders: Discharge Order (Routine); Ordered 02/25/21 Ordered By: Benja Lai Admission Data Admit Date/Time: 02/23/21 23:27 Attending Provider: Benja Lai Admit Provider: Nikolay Joya Primary Care Provider: Elizabeth Jose Other Providers: Nikolay Joya ; Aly Hernández ; Meli Baptiste ; [facility]
[2021-02-25] MEDS ORDERED: LIDOCAINE 5% 1 PATCH TD SCH (15:30)
--- NOTE | 2021-02-25 16:37 | Pulmonology Progress Note ---
Date of Service February 25, 2021 Assessment & Plan (1) Acute and chronic respiratory failure with hypercapnia: (2) Acute hypoxemic respiratory failure: (3) Idiopathic polyneuropathy: (4) Abnormal PFTs (pulmonary function tests): (5) Asbestos-induced pleural plaque: Plan: The etiology of the patient's acute hypercapnic respiratory failure is unclear. He also does have an element of chronic hypercapnic respiratory failure. Patient should be on BiPAP and should be discharged home on BiPAP. I strongly would recommend an evaluation by physical therapy and Occupational Therapy. There may be a respiratory neuromuscular weakness playing a role. Neurology consultation may be beneficial. Underlying central sleep apnea may be also playing a role. The pleural plaques seen on on the CT chest may also be contributing to an element of hypoventilation and restrictive physiology. Unclear whether he has underlying asthma. It is reasonable to treat him with an ICS/LABA inhaler. Recommend prednisone taper upon discharge. Admission and Anticipated Discharge Date Admission Date: February 23, 2021 Subjective Patient seen and examined this afternoon. He is tolerating nasal cannula. He denies any shortness of breath. Doing much better than yesterday. No chest pain. Review of Systems Review of Systems: All systems reviewed & are unremarkable except as noted in Subjective Physical Exam Physical Exam: Constitutional: Elderly appearing male sitting up in a chair. Saturating well on room air. No apparent distress. Eyes: Pupils are equal round and reactive to light. Conjunctivae are normal. Anicteric sclera. Ears nose, mouth and throat: Mallampati class 2. Normal posterior oropharynx. Uvula is midline. Neck: Trachea is midline. Visual inspection is normal. Respiratory: Clear to auscultation bilaterally. No use of accessory muscles. No significant clubbing noted. Cardiovascular: Regular rate and rhythm. No murmurs. No edema. Gastrointestinal: Normal bowel sounds, soft, nontender and nondistended. No hepatosplenomegaly noted. Musculoskeletal: No cyanosis. Patient is able to move all extremities. Strength is 5 out of 5 in the upper and lower extremities. Skin: No rashes, warm dry and intact. Neurologic: Weakness noted in the lower extremities bilaterally. Psychiatric: Alert and oriented x3 with a euthymic affect. Results & Data Results & Data ([facility]) Vital Signs (Past 12 Hours) Vital Signs Temp Pulse Pulse Pulse Pulse Pulse Pulse 02/25/21 15:23 02/25/21 15:14 66 02/25/21 15:08 97.5 F L 60 61 02/25/21 13:00 64 71 71 02/25/21 11:09 02/25/21 11:08 97.5 F L 60 02/25/21 10:15 65 02/25/21 07:30 97.7 F 02/25/21 07:18 Pulse Pulse Resp Resp Resp Resp Resp 02/25/21 15:23 58 L 18 02/25/21 15:14 02/25/21 15:08 70 18 02/25/21 13:00 64 16 18 18 16 02/25/21 11:09 70 18 02/25/21 11:08 18 02/25/21 10:15 02/25/21 07:30 69 16 02/25/21 07:18 65 18 BP BP Pulse Ox Pulse Ox Pulse Ox Pulse Ox Pulse Ox 02/25/21 15:23 93 02/25/21 15:14 02/25/21 15:08 108/64 106/64 88 L 02/25/21 13:00 96 94 86 L 88 L 02/25/21 11:09 88 L 02/25/21 11:08 106/64 88 L 02/25/21 10:15 02/25/21 07:30 108/64 100 02/25/21 07:18 99 Vital signs, labs and imaging personally reviewed PG Care Time/CCT Total # of Minutes Spent Total Time Spent with Patient: Total time spent is greater than 50% in coordination of care (as documented) at patient's floor/unit and/or counseling patient: Coding Level of Care Code 79653 Subseq Hosp Care Lvl 2 Diagnoses Acute hypoxemic respiratory failure J96.01 Idiopathic polyneuropathy G60.9 Abnormal PFTs (pulmonary function tests) R94.2 Asbestos-induced pleural plaque J92.0 Acute and chronic respiratory failure with hypercapnia J96.22
[2021-02-25] MEDS ORDERED: ATORVASTATIN 20 MG TAB PO SCH (21:00)
== END 2021-02-25 16:34 | disposition home health service (06) | DRG 189 ==
LOC: ED 18:28 → 2N 23:27